=== PATIENT | male | born 1965 | race Caucasian/White ===

== ENCOUNTER 2019-09-09 16:14 | Inpatient (IN) | payer OTHER, SELFPAY ==
--- NOTE | ~2019-09-09 | US_ITS ---
EXAMINATION: US renal BI DATE: 09/10/2019 09:37 INDICATION: Hematuria. TECHNIQUE: Multiple ultrasound grayscale images of the kidneys were obtained. COMPARISON: CT abdomen and pelvis 07/23/2011 FINDINGS: The right kidney measures 12.6 x 7.0 x 5.9 cm. The left kidney measures 12.1 x 5.2 x 5.6 cm. The kidn eys demonstrate normal parenchymal echogenicity. There is a 3.4 cm cyst in right kidney. There is an 9 mm cyst in left kidney. There is mild bilateral hydronephrosis. The bladder is decompressed by a Fo sandra catheter. IMPRESSION: 1. Mild bilateral hydronephrosis. Reviewed, dictated and finalized at location A.
[2019-09-09 16:21] VITALS: BP 156/95; PULSE 64; RESP 20; TEMP 36.9; O2SAT 96
--- NOTE | 2019-09-09 17:05 | ED.GENADULT ---
HPI - General Adult General Chief complaint: Urogenital-Male Stated complaint: Unable to Urinate Time Seen by Provider: 09/09/19 16:18 History of Present Illness HPI narrative: Patient is a 54 y/o male complaining of difficulty with urination and bloody urine since yesterday. He states that he is passing clots sometimes. His last urination is approximately 10:00 AM. He has history prostate cancer. He attempted to strain, but still cannot urinate. Related Data Home Medications Medication Instructions Recorded Confirmed enzalutamide [Xtandi] 40 mg PO QID 09/09/19 09/09/19 Allergies Allergy/AdvReac Type Severity Reaction Status Date / Time No Known Allergies Allergy Verified 09/09/19 16:30 Review of Systems Constitutional: Constitutional: Denies chills, Denies fever(s), Denies headache(s) and Denies weakness Eyes: Eyes: Denies blurry vision ENT: Denies headache(s) and Denies neck pain Cardiovascular: Cardiovascular: Denies chest pain and Denies dyspnea Respiratory: Respiratory: Denies cough and Denies dyspnea Gastrointestinal: Gastrointestinal: Denies abdominal pain, Denies diarrhea, Denies nausea and Denies vomiting Genitourinary: Genitourinary: Reports hematuria, Reports oliguria, Reports dysuria and Reports urinary hesitancy Musculoskeletal: Musculoskeletal: Denies back pain and Denies neck pain Neurologic: Denies headache(s) and Denies weakness [facility] Past Medical History Medical History (Updated 09/09/19 @ 21:19 by Arielle Rodriguez MD) Prostate cancer Family History Family History Father Family history of cardiovascular disease Social History Social History Smoking status: Former smoker Smoking end date: 03/29/00 Alcohol intake: current Gender identity (if verbalized by the patient): Male Exam Const: General: no acute distress and well developed Orientation/consciousness: oriented to person, oriented to place, oriented to time and patient oriented x3 HENMT: Head: normocephalic Ears: external ears normal General nose exam: Normal external nose present Eyes: General: appearance normal, both eyes and all related structures Conjunctivae: conjunctivae normal Neck: Neck: normal visual inspection and full ROM Chest: Chest palpation & inspection: normal inspection of the chest and no tenderness Resp: Effort & Inspection: normal respiratory effort Auscultation: clear to auscultation bilaterally Cardio: Rate: regular rate Rhythm: regular rhythm GI: GI Palp: No abdominal tenderness and Yes Soft to palpation Skin: General skin exam: normal color and turgor normal Neuro: General: oriented to person, oriented to place, oriented to time and patient oriented x3 Cognition (Neuro): normal cognition Extrem: General: normal to inspection, full ROM and no pedal edema Psych: Appearance: grossly normal Mental Status: mental status grossly normal Affect: normal affect Course Consultations Consultation #1: Discussed with Dr. Deras (urology) at [place], who states that patient can be admitted at [facility] for CBI. He states that he can accept the patient for transfer if he requests. Date: 09/09/19 Time: 19:15 Consultation #2: Discussed with Dr. Weston (urology), who agrees to consult. He recommends admitting to hospitalist. Date: 09/09/19 Time: 20:52 Consultation #3: Discussed with Dr. Carpenter (hospitalist), who agrees to admit. Date: 09/09/19 Time: 21:16 Vital Signs Vital signs: Vital Signs Temperature 36.9 C 09/09/19 16:21 Pulse Rate 64 09/09/19 16:21 Respiratory Rate 20 09/09/19 16:21 Blood Pressure 156/95 H 09/09/19 16:21 Pulse Oximetry 96 09/09/19 16:21 Temperature 36.9 C 09/09/19 16:21 Pulse Rate 64 09/09/19 16:21 Respiratory Rate 20 09/09/19 16:21 Blood Pressure 156/95 H 09/09/19 16:21 Pulse Oximetry 96 09/09/19 16:21 Medical Decision Matteo
[2019-09-09 17:33] LABS: Basophils Absolute Auto 0.1 K/mm3 (0.0-0.1); Eosinophils Absolute Auto 0.2 K/mm3 (0-0.3); Eosinophils Percent Auto 2.5 % (0-4.4); Hematocrit 37.1 % (42.0-52.0); Hemoglobin 12.6 g/dL (14.0-18.0); Immature Granulocyte Absolute 0.03 K/mm3 (0.00-0.031); Immature Granulocyte Percent A 0.5 % (0-0.5); Lymphocytes Absolute Auto 0.72 K/mm3 (0.9-3.2); Lymphocytes Percent Auto 12.2 % (18.3-44.2); Mean Corpuscular Hemoglobin 31.5 pg (26-34); Mean Corpuscular Volume 92.8 fl (80-100); Monocytes Absolute Auto 0.6 K/mm3 (0.1-0.6); Neutrophils Absolute Auto 4.4 K/mm3 (1.3-6.7); Neutrophils Percent Auto 73.8 % (45.5-73.1); Platelet Count Result 167 k/mm3 (150-375); Red Cell Distribution Width 11.6 % (11.5-14.5); White Blood Count 5.9 K/mm3 (4.5-10.0)
[2019-09-09 17:53] LABS: Blood Urea Nitrogen 31 mg/dL (9-20); Calcium 9.3 mg/dL (8.4-10.2); Carbon Dioxide 22 mmol/L (22-30); Chloride 107 mmol/L (98-107); Estimated CRCL calculation 41 ml/min; Estimated Glomerular Filt Rate 33; Glucose 104 mg/dL (75-110); Potassium 4.2 mmol/L (3.4-5.0); Sodium 138 mmol/L (137-145)
[2019-09-09 18:53] LABS: Add Urine Microscopic? YES; Appearance Urine Cloudy (Clear); Bilirubin Urine Negative (Negative); Blood Urine 2+ (Negative); Color Urine Yellow (Yellow); Glucose Urine UA Negative (Negative); Ketones Urine Trace mg/dL (Negative); Leukocyte Esterase Ur Negative LEU/UL (Negative); Nitrate Urine Negative (Negative); Protein Urine 2+ mg/dL (Negative); RBC Urine >75 /hpf (0-2); Urobilinogen Urine Negative mg/dL (<2.0); WBC Urine >75 /hpf
--- NOTE | 2019-09-09 19:23 | PC.NURSE ---
CBI started at this time. Pt tolerating well.
[2019-09-09] MEDS: SODIUM CHLORIDE 0.9% IV 1,000 ML 999 ML IV CONT ×2 (19:46→21:29)
[2019-09-09 22:05] VITALS: BP 134/78; PULSE 60; RESP 14; O2SAT 96
[2019-09-09 22:11] VITALS: BP 134/64; PULSE 60; RESP 18; O2SAT 98
[2019-09-09] MEDS: SODIUM CHLORIDE 0.9% IV 1,000 ML 100 ML IV CONT (22:25)
[2019-09-09 22:26] LABS: Prostate Specific Antigen 8.8 ng/mL (< OR = 4.0)
--- NOTE | 2019-09-09 22:38 | ADMGEN ---
This patient, Alex Kraft, was admitted to 3 [facility] Surg Room 301-01. Patient/family oriented to hospital policies and general routines including ID bracelet, bed and alarms, visiting hours, pain management, procedures, bathroom and other care routines, personal items, smoking policy, room service/diet, and visiting hours. Valuables list has been completed. Information on how to activate the Rapid Response Team has been discussed. Patient/Family are encouraged to report perceived risks to care and to ask questions if they do not understand what they are told or what they should do.
--- NOTE | 2019-09-09 22:40 | PM.IMHP ---
H&P: HPI History of Present Illness Chief complaint: Hematuria, unable to urinate. Narrative: Alex Kraft is a 54-year-old male with prostate cancer presented to the emergency department earlier this evening with reports of hematuria and inability urinary. The patient was diagnosed with prostate cancer at age 44 and was initially treated with radiation and hormone therapy. He had a recurrence approximately 3 years ago and subsequently had a prostatectomy. Since that time, he has had several recurrences in and about the bladder which have been resected. More recently, his urologist had discussed radical cystectomy however the patient instead went to [place], [place] and saw specialist that has been participating in experimental therapy. The patient is not in that particular study, but he was started on Xtandi. Within the past 1 month or so, his creatinine has continued to increase from a baseline around 1.20 to 2.20 just last week. In any regard, on the patient began noticing blood in his urine and later that night he notes having to strain to urinate, passing large clots throughout the night. He continues to have painful urination, mainly gross hematuria and clots, and he has not been able to urinate at all since approximately 1100. He has since been started on CBI. He denies fever, chills, sweats, nausea, vomiting, and back pain. Review of Systems Review of Systems: Narrative: Twelve systems were reviewed with pertinent positives and negatives as per HPI. No fever, chills, or sweats. No recent cold or flu symptoms. He denies chest pain shortness of breath. No diarrhea. Except as documented, all other systems were reviewed and are negative. [facility] Past Medical History Medical History (Updated 09/09/19 @ 23:11 by Miriam Smith PA-C) Prostate cancer Diagnosed at the age of 44 initially treated with radiation and hormone therapy. He had a radical prostatectomy 3 years thereafter, and has had several recurrences in and about the bladder which have been resected. Currently on Xtandi. He is followed by a urologist affiliated with [facility] as well as a urologist in [place], [place]. Renal insufficiency Baseline creatinine around 1.20. Within the past 1 month, he reports his creatinine to be as high as 2.20. His urologist is believes this may be due to compression of ureters from his prostate cancer. Surgical History Surgical History (Updated 09/09/19 @ 23:06 by Miriam Smith PA-C) History of cystoscopy With resection of bladder tumor reported to be metastatic prostate cancer. History of prostatectomy Family History Family History Father Family history of cardiovascular disease Social History Social History (Updated 09/09/19 @ 23:07 by Miriam Smith PA-C) Social History: The patient is lives with his and their 19-year-old daughter in [place]. He is a former smoker and quit in 2000. No alcohol or illicit substance abuse. He designates his , Yolande, as his surrogate decision maker and he wishes to be a full code. Smoking packs per day: 0.5 Smoking cigarettes per day: 10.0 Years smoked: 15 Smoking pack-years: 7.50 Drinks per week: 1 Substance use: never Spiritual care concerns: No Meds Home Medications and Allergies Home Medications Medication Instructions Recorded Confirmed Type Lactobacillus acidophilus 100 mg PO DAILY 09/09/19 09/09/19 History [Acidophilus] cholecalciferol (vitamin D3) 50 mcg PO DAILY 09/09/19 09/09/19 History [Vitamin D3] enzalutamide [Xtandi] 40 mg PO QID 09/09/19 09/09/19 History multivitamin [Daily Multi-Vitamin] 1 tablet PO DAILY 09/09/19 09/09/19 History niacin 100 mg PO DAILY 09/09/19 09/09/19 History zinc 50 mg PO DAILY 09/09/19 09/09/19 History Allergies Allergy/AdvReac Type Severity Reaction Status Date / Time No Known Allergies Allergy Verifi
[2019-09-09 23:35] VITALS: BP 141/83; PULSE 52; RESP 16; TEMP 36.6; O2SAT 98; BMI 30.9
[2019-09-10 02:00] VITALS: BP 142/76; PULSE 55; RESP 18; TEMP 36.4; O2SAT 98
[2019-09-10 02:44] LABS: Blood Urea Nitrogen 26 mg/dL (9-20); Calcium 8.2 mg/dL (8.4-10.2); Carbon Dioxide 23 mmol/L (22-30); Chloride 111 mmol/L (98-107); Estimated CRCL calculation 51 ml/min; Estimated Glomerular Filt Rate 37; Glucose 111 mg/dL (75-110); Potassium 3.7 mmol/L (3.4-5.0); Sodium 138 mmol/L (137-145)
[2019-09-10 03:05] LABS: Hematocrit 36.1 % (42.0-52.0); Hemoglobin 12.2 g/dL (14.0-18.0)
[2019-09-10] MEDS: SODIUM CHLORIDE 0.9% IV 1,000 ML 100 ML IV CONT ×2 (05:44→15:27)
[2019-09-10 06:00] VITALS: BP 162/83; PULSE 56; RESP 16; TEMP 36.7; O2SAT 99
[2019-09-10] MEDS: ACETAMINOPHEN 325 MG TABLET 650 MG PO ×2 (08:23→18:49)
[2019-09-10] MEDS: ZINC SULFATE 220 MG CAPSULE PO (08:24)
[2019-09-10] MEDS: NIACIN 100 MG TABLET PO (08:24)
[2019-09-10] MEDS: CHOLECALCIFEROL 1,000 UNIT TABLET 2000 UNITS PO (08:24)
[2019-09-10] MEDS: MULTIVITAMINS THERAPEUTIC TAB (*BKC) 1 TABLET PO (08:24)
[2019-09-10] MEDS: ACIDOPHILUS/BULGARICUS CHEWABLE TABLET 1 TABLET PO (08:25)
[2019-09-10 10:00] VITALS: BP 136/83; PULSE 60; RESP 14; TEMP 36.7; O2SAT 98
--- NOTE | 2019-09-10 10:23 | WPDURCON ---
Assessment and Plan Assessment and plan (1) Prostate cancer: Code(s): C61 - Malignant neoplasm of prostate Status: Acute Assessment and Plan: Advanced cancer and MRI in July worrisome for local 6cm recurrence and bilateral hydro and nodes pos Completed homonal ablation planned and I agree his best option is cystectomy and diversion. Cysto and stents planned this week and if not able with need percs. Hormone injection planned. This is very complex and advance cancer---rec he continue his care with current tear at [facility]---future admissions should be considered at [place]. (2) Renal insufficiency: Code(s): N28.9 - Disorder of kidney and ureter, unspecified Status: Acute (3) Gross hematuria: Code(s): R31.0 - Gross hematuria Status: Acute Assessment and Plan: Keep moctezuma Wean CBI US pending Home with moctezuma likey tomorrow (4) Urinary retention: Code(s): R33.9 - Retention of urine, unspecified Status: Acute (5) Hydronephrosis due to obstruction of bladder: Code(s): N13.30 - Unspecified hydronephrosis; N32.0 - Bladder-neck obstruction Status: Acute Assessment and Plan: attempted stents for Wednesday--july need percs Urology Consult Note HPI Date Seen: 09/10/19 Requesting Physician: Sugar Ruiz PA-C Primary Care Provider: Abdoulaye Landis DO Consult Narrative Narrative: Alex Kraft is a 54 year old male with advancing prostate cancer. MRI last at [facility] with bilateral hydro and 5.8cm mass progressing in bladder. He had radiation treatment and salvage prostatectomy with Dr. Marr. Now eval with Dr. Caleb Dumas and offered cystectomy and diversion--he is considering and went to [facility] for additional eval---started Xtandi. He states he has not had hormonal ablation recently and with normal testosterone---injection planned next week. Has cysto and stents planned this wednesday at [place]. PSA reported last as 8 and Cr 1.9 today with KEVIN pending. On CBI as worked out and played tennis and bleeding since. ER contacted [facility] team and they thought local admission here would be reasonable. [facility] Past Medical History Medical History (Updated 09/10/19 @ 10:32 by Vinay Weston MD) Prostate cancer Diagnosed at the age of 44 initially treated with radiation and hormone therapy. He had a radical prostatectomy 3 years thereafter, and has had several recurrences in and about the bladder which have been resected. Currently on Xtandi. He is followed by a urologist affiliated with [facility], Dr. Dumas Renal insufficiency Baseline creatinine around 1.20. Within the past 1 month, he reports his creatinine to be as high as 2.20. His urologist is believes this may be due to compression of ureters from his prostate cancer. Surgical History Surgical History (Updated 09/09/19 @ 23:06 by Miriam Smith PA-C) History of cystoscopy With resection of bladder tumor reported to be metastatic prostate cancer. History of prostatectomy Family History Family History Father Family history of cardiovascular disease Social History Social History (Updated 09/09/19 @ 23:07 by Miriam Smith PA-C) Social History: The patient is lives with his and their 19-year-old daughter in [place]. He is a former smoker and quit in 2000. No alcohol or illicit substance abuse. He designates his , Yolande, as his surrogate decision maker and he wishes to be a full code. Smoking packs per day: 0.5 Smoking cigarettes per day: 10.0 Years smoked: 15 Smoking pack-years: 7.50 Drinks per week: 1 Substance use: never Spiritual care concerns: No Meds Home Medications and Allergies Home Medications Medication Instructions Recorded Confirmed Type Lactobacillus acidophilus 100 mg PO DAILY 09/09/19 09/09/19 History [Acidophilus] cho
[2019-09-10 12:47] LABS: Basophils Absolute Auto 0.1 K/mm3 (0.0-0.1); Basophils Percent Auto 0.9 % (0.2-1.2); Eosinophils Absolute Auto 0.3 K/mm3 (0-0.3); Eosinophils Percent Auto 3.8 % (0-4.4); Hematocrit 37.9 % (42.0-52.0); Hemoglobin 13.1 g/dL (14.0-18.0); Immature Granulocyte Absolute 0.02 K/mm3 (0.00-0.031); Immature Granulocyte Percent A 0.3 % (0-0.5); Lymphocytes Absolute Auto 0.84 K/mm3 (0.9-3.2); Lymphocytes Percent Auto 12.8 % (18.3-44.2); Mean Corpuscular HGB Conc 34.6 g/dl (32-36); Mean Corpuscular Hemoglobin 31.8 pg (26-34); Monocytes Absolute Auto 0.7 K/mm3 (0.1-0.6); Monocytes Percent Auto 11.1 % (2.6-8.5); Neutrophils Absolute Auto 4.7 K/mm3 (1.3-6.7); Neutrophils Percent Auto 71.1 % (45.5-73.1); Platelet Count Result 166 k/mm3 (150-375); Red Blood Count 4.12 M/mm3 (4.6-6.20); Red Cell Distribution Width 11.8 % (11.5-14.5); White Blood Count 6.6 K/mm3 (4.5-10.0)
[2019-09-10 13:01] LABS: Blood Urea Nitrogen 22 mg/dL (9-20); Calcium 8.8 mg/dL (8.4-10.2); Carbon Dioxide 23 mmol/L (22-30); Chloride 107 mmol/L (98-107); Estimated CRCL calculation 57 ml/min; Estimated Glomerular Filt Rate 42; Glucose 101 mg/dL (75-110); Potassium 4.4 mmol/L (3.4-5.0); Sodium 135 mmol/L (137-145)
[2019-09-10 14:00] VITALS: BP 130/84; PULSE 55; RESP 14; TEMP 37; O2SAT 97
--- NOTE | 2019-09-10 14:27 | PM.IMPN ---
Progress Note: A&P Assessment and Plan (1) Gross hematuria: Code(s): R31.0 - Gross hematuria Status: Acute Assessment and Plan: Uncertain if bleeding is due to recurrent bladder tumor verses cystitis. CBI still running wide open and Bosch catheter bag is still showing fruit punch colored urine, no clots. Empiric ceftriaxone started due to abnormal urinalysis, pending urine culture. Urology consulted and recommend continuing to wean CBI, and potentially discharge the patient home in the next few days with the Bosch catheter in place and to follow-up with his specialist for his outpatient urethral stent procedure which is post be later this week. Continue monitoring patient's symptoms. (2) Normocytic anemia: Code(s): D64.9 - Anemia, unspecified Status: Acute Assessment and Plan: Perhaps underlying chronic anemia versus acute blood loss anemia. H&H has been stable. Trend hemoglobin hematocrit given gross hematuria. (3) Renal insufficiency: Code(s): N28.9 - Disorder of kidney and ureter, unspecified Status: Acute Assessment and Plan: Patient reports increasing creatinine over the past 1 month, last known creatinine was 2.20. Patient was told that he may have renal insufficiency stemming from compression of the ureters from the bladder tumor. Creatinine on arrival was 2.10, and currently is 1.7. Continue with Bosch catheter, IV fluid hydration and CBI. (4) Urinary retention: Code(s): R33.9 - Retention of urine, unspecified Status: Acute Assessment and Plan: Secondary to gross hematuria and clots. Continue Bosch catheter and CBI as above. (5) Prostate cancer: Code(s): C61 - Malignant neoplasm of prostate Status: Acute Assessment and Plan: Continue Xtandi. He will need to follow-up with his specialists as an outpatient next week for further evaluation Time Spent With Patient Time with patient: 25 - 35 minutes Subjective Date/time seen: 09/10/19 14:27 Interval history: Date of service 09/10/2019: The patient reports his hematuria seems to be clearing up some in the Bosch bag. He denies any pain, discomfort or spasming to his bladder with the CBI running. He states whenever he works out to hard he notices more bleeding and clots in his urine but this is the 1st time he has ever need to be hospitalized or had a Bosch catheter and CBI. He denies any fevers, chills, nausea, vomiting, abdominal pain, chest pain, shortness of breath, leg swelling calf pain, or any other symptoms at this time. Review of Systems Review of Systems: All systems reviewed & are unremarkable except as noted in HPI and below Exam Narrative: Exam Narrative: General: 54-year-old man sitting up in the chair on his phone. Appears comfortable. In no acute distress. Skin: No jaundice or cyanosis. Good skin turgor. Neck: Full range of motion. Supple. Respiratory: Lungs are clear to auscultation bilaterally. No bony chest wall tenderness. Cardiovascular: The heart has a regular rate and rhythm without murmur. : Bosch bag with fruit punch colored urine. No clots noted in the bag. Lower extremities: No lower extremity edema. Distal pulses are easily palpated. No calf tenderness to palpation. Gastrointestinal: The abdomen is soft, nontender and nondistended with active bowel sounds. Psychiatric: Lucid and oriented. Memory intact. Neurologic: No focal deficits. Speech is clear. No facial drooping. Objective Data Vital Signs Vital Signs: Vital Signs - 24 hr 09/09/19 16:21 09/09/19 22:05 09/09/19 22:11 Temperature 98.4 F Pulse Rate 64 60 60 Respiratory Rate 20 14 18 Blood Pressure 156
--- NOTE | 2019-09-10 16:49 | PHAR ---
The patient's home med of Enzalutamide (XTANDI) 40MG capsule has been verified.
[2019-09-10 18:00] VITALS: BP 145/93; PULSE 52; RESP 14; TEMP 36.7; O2SAT 98
[2019-09-10 21:51] VITALS: BP 160/94; PULSE 54; RESP 16; TEMP 36.5; O2SAT 97
[2019-09-11 02:00] VITALS: BP 132/87; PULSE 52; RESP 18; TEMP 36.3; O2SAT 99
[2019-09-11 06:00] VITALS: BP 155/91; PULSE 53; RESP 16; TEMP 36.3; O2SAT 100
[2019-09-11 06:40] LABS: Hematocrit 36.3 % (42.0-52.0); Hemoglobin 12.2 g/dL (14.0-18.0); Mean Corpuscular HGB Conc 33.6 g/dl (32-36); Mean Corpuscular Hemoglobin 31.8 pg (26-34); Mean Corpuscular Volume 94.5 fl (80-100); Mean Platelet Volume 10.2 fl (7.4-10.4); Platelet Count Result 159 k/mm3 (150-375); Red Blood Count 3.84 M/mm3 (4.6-6.20); Red Cell Distribution Width 11.9 % (11.5-14.5); White Blood Count 4.4 K/mm3 (4.5-10.0)
[2019-09-11 07:05] LABS: Blood Urea Nitrogen 18 mg/dL (9-20); Calcium 8.6 mg/dL (8.4-10.2); Carbon Dioxide 26 mmol/L (22-30); Chloride 107 mmol/L (98-107); Estimated CRCL calculation 51 ml/min; Estimated Glomerular Filt Rate 37; Glucose 106 mg/dL (75-110); Potassium 4.3 mmol/L (3.4-5.0); Sodium 138 mmol/L (137-145)
[2019-09-11] MEDS: ACIDOPHILUS/BULGARICUS CHEWABLE TABLET 1 TABLET PO (08:41)
[2019-09-11] MEDS: MULTIVITAMINS THERAPEUTIC TAB (*BKC) 1 TABLET PO (08:42)
[2019-09-11] MEDS: CHOLECALCIFEROL 1,000 UNIT TABLET 2000 UNITS PO (08:42)
[2019-09-11] MEDS: ZINC SULFATE 220 MG CAPSULE PO (08:42)
[2019-09-11] MEDS: NIACIN 100 MG TABLET PO (08:42)
--- NOTE | 2019-09-11 08:49 | WPDUROPN2 ---
Progress Note: A&P Assessment and Plan (1) Hydronephrosis due to obstruction of bladder: Code(s): N13.30 - Unspecified hydronephrosis; N32.0 - Bladder-neck obstruction Status: Acute Assessment and Plan: is schedule for cysto/stents with Dr Kali Dumas at [place] Wednesday (2) Renal insufficiency: Code(s): N28.9 - Disorder of kidney and ureter, unspecified Status: Acute Assessment and Plan: stable (3) Gross hematuria: Code(s): R31.0 - Gross hematuria Status: Acute Assessment and Plan: continues to need CBI. i have a call out to Dr Dumas about a possible transfer to his regular urologist Dr Kali Dumas at [place] for furhter management (4) Prostate cancer: Code(s): C61 - Malignant neoplasm of prostate Status: Acute Subjective Subjective Date/Time Seen: 09/11/19 08:49 CBI ran out last night and catheter blocked off. Still requiring CBI. Patient and multiple questions that I can not answer about his cancer care. Exam Const: General: no acute distress Resp: Effort & Inspection: normal respiratory effort Urinary Catheter: Urinary Catheter: urine pink (on CBI) Skin: General skin exam: normal color Extrem: General: normal to inspection Objective Data Vital Signs Vital Signs: Vital Signs - 24 hr 09/10/19 10:00 09/10/19 14:00 09/10/19 18:00 Temperature 98.0 F 98.6 F 98.0 F Pulse Rate 60 55 L 52 L Respiratory Rate 14 14 14 Blood Pressure 136/83 130/84 145/93 H Pulse Oximetry 98 97 98 09/10/19 21:51 09/11/19 02:00 09/11/19 06:00 Temperature 97.7 F 97.4 F L 97.3 F L Pulse Rate 54 L 52 L 53 L Respiratory Rate 16 18 16 Blood Pressure 160/94 H 132/87 155/91 H Pulse Oximetry 97 99 100 Intake/Output Intake/Output: Intake & Output 09/08/19 09/09/19 09/10/19 09/11/19 23:59 23:59 23:59 23:59 Intake Total 1050 4860 1280 Output Total 92503 0512 4160 Balance -15013 4664 -630 Meds/Results Medications: Active Medications Generic Name Dose Route Start Last Admin Trade Name Freq PRN Reason Stop Dose Admin Acetaminophen 650 mg 09/10/19 08:04 09/10/19 18:49 Tylenol Tablet PO 650 mg Q6H PRN Administration Mild Pain (1-3) or Fever Lactobacillus Acidophilus 1 tablet 09/10/19 09:00 09/11/19 08:41 Lactinex Chewable Tablet PO 1 tablet DAILY CECILIA Administration Multivitamins Therapeutic 1 tablet 09/10/19 09:00 09/11/19 08:42 Multivitamins Therapeutic(*Bkc PO 1 tablet DAILY CECILIA Administration Niacin 100 mg 09/10/19 09:00 09/11/19 08:42 Niacin PO 100 mg DAILY CECILIA Administration Vitamin D 2,000 unit 09/10/19 09:00 09/11/19 08:42 Vitamin D PO 2,000 unit DAILY CECILIA Administration Zinc Sulfate 220 mg 09/10/19 09:00 09/11/19 08:42 Zinc Sulfate PO 220 mg DAILY CECILIA Administration Radiology Results: ITS Impressions Renal Ultrasound 09/10/19 14:53 IMPRESSION: 1. Mild bilateral hydronephrosis. Labs Labs: Laboratory Results - last 24 hr 09/10/19 09/10/19 09/11/19 11:59 11:59 05:41 WBC 6.6 4.4 L RBC 4.12 L 3.84 L Hgb 13.1 L 12.2 L Hct 37.9 L 36.3 L MCV 92.0 94.5 MCH 31.8 31.8 MCHC 34.6 33.6 RDW 11.8 11.9 Plt Count 166 159 MPV 10.0 10.2 Immature Gran % (Auto) 0.3 Neut % (Auto) 71.1 Lymph % (Auto) 12.8 L [place] % (Auto) 11.1 H Eos % (Auto) 3.8 Baso % (Auto) 0.9 Lymph # (Auto) 0.84 L [place] # (Auto) 0.7 H Eos # (Auto) 0.3 Baso # (Auto) 0.1 Abs Immat Gran (auto) 0.02 Absolute Neuts (auto) 4.7 Absolute Nucleated RBC 0.0 Nucleated RBC % 0.0 Sodium 135 L Potassium 4.4 Chloride 107 Carbon Dioxide 23 BUN 22 H Creatinine 1.70 H Estim Creat Clear Calc 57 Estimated GFR 42 L Glucose 101 Calcium 8.8 Magnesium 2.0 06/15/20 05:41 WBC RBC Hgb Hct MCV MCH MCHC RDW Plt Count MPV Immature Gran % (Auto) Neut % (Auto) Lymph % (Au
[2019-09-11 10:00] VITALS: BP 153/91; PULSE 64; RESP 14; TEMP 36.7; O2SAT 99
--- NOTE | 2019-09-11 12:43 | PM.TDS ---
Transfer Discharge Sum: Prov Provider Date of admission: 09/10/19 09:39 Primary care physician: Abdoulaye Landis DO Admitting clinician: Sandra Carpenter DO Consults: 09/09/19 21:21 Consult to Physician Routine Comment: Consulting Provider: Vinay Weston Reason for consultation: urology Has provider been notified: Yes DS: Admitting Diagnosis Admitting Diagnosis Admitting Diagnosis: Gross hematuria DS: Discharge Diagnosis Discharge Diagnosis (1) Gross hematuria: Code(s): R31.0 - Gross hematuria Status: Acute Assessment and Plan: Uncertain if bleeding is due to recurrent bladder tumor verses cystitis. Patient CBI had been turned down last night and he developed clots. Clots were flushed out and CBI is still running wide open and urine is still bright red. Urine culture was negative for any growth. Urology Dr. Geiger evaluated the patient today and since there has not been any improvement in his hematuria. Since he sees a specialist at [place] and is going to have a procedure next week, Dr. Geiger called his urologist who accepted the transfer to [place] for further evaluation and treatment. (2) Normocytic anemia: Code(s): D64.9 - Anemia, unspecified Status: Acute Assessment and Plan: Perhaps underlying chronic anemia versus acute blood loss anemia. H&H has been stable. (3) Renal insufficiency: Code(s): N28.9 - Disorder of kidney and ureter, unspecified Status: Acute Assessment and Plan: Patient reports increasing creatinine over the past 1 month, last known creatinine was 2.20. Patient was told that he may have renal insufficiency stemming from compression of the ureters from the bladder tumor. Creatinine on arrival was 2.10, and currently is 1.9. Stable. Will continue light IV fluid hydration. (4) Urinary retention: Code(s): R33.9 - Retention of urine, unspecified Status: Acute Assessment and Plan: Secondary to gross hematuria and clots. Continue Bosch catheter and CBI as above. (5) Prostate cancer: Code(s): C61 - Malignant neoplasm of prostate Status: Acute Assessment and Plan: Continue Xtandi. Transfer Discharge Sum: Med Medications Active and Home Medications: Home Medications Lactobacillus acidophilus [Acidophilus] 100 mg PO DAILY 09/09/19 [History Confirmed 09/09/19] cholecalciferol (vitamin D3) [Vitamin D3] 50 mcg PO DAILY 09/09/19 [History Confirmed 09/09/19] enzalutamide [Xtandi] 40 mg PO QID 09/09/19 [History Confirmed 09/09/19] multivitamin [Daily Multi-Vitamin] 1 tablet PO DAILY 09/09/19 [History Confirmed 09/09/19] niacin 100 mg PO DAILY 09/09/19 [History Confirmed 09/09/19] zinc 50 mg PO DAILY 09/09/19 [History Confirmed 09/09/19] Active Medications Acetaminophen (Tylenol Tablet) 650 mg PO Q6H PRN PRN Reason: Mild Pain (1-3) or Fever Last Admin: 09/10/19 18:49 Dose: 650 mg Documented by: Lactobacillus Acidophilus (Lactinex Chewable Tablet) 1 tablet PO DAILY [facility] Last Admin: 09/11/19 08:41 Dose: 1 tablet Documented by: Multivitamins Therapeutic (Multivitamins Therapeutic(*Bkc) 1 tablet PO DAILY [facility] Last Admin: 09/11/19 08:42 Dose: 1 tablet Documented by: Niacin (Niacin) 100 mg PO DAILY [facility] Last Admin: 09/11/19 08:42 Dose: 100 mg Documented by: Vitamin D (Vitamin D) 2,000 unit PO DAILY [facility] Last Admin: 09/11/19 08:42 Dose: 2,000 unit Documented by: Zinc Sulfate (Zinc Sulfate) 220 mg PO DAILY [facility] Last Admin: 09/11/19 08:42 Dose: 220 mg Documented by: Transfer Discharge Sum: Hosp Hospital Course Hospital course: Alex Rogelio Kraft is a 54 year old male with history of prostate cance
[2019-09-11 14:00] VITALS: BP 148/90; PULSE 62; RESP 16; TEMP 36.7; O2SAT 99
== END 2019-09-11 19:00 | disposition short-term general hospital (02) | DRG 687 ==
LOC: ANHED 21:19 → ANH3MEDSUR 22:00
PROVIDERS: Physician Assistant; Admitting Provider Internal Medicine; Emergency Provider Emergency Medicine; PCP Internal Medicine; Visit Provider Family Medicine
DX: C79.11 Secondary malignant neoplasm of bladder (principal); N13.39 Other hydronephrosis; C61 Malignant neoplasm of prostate; D63.0 Anemia in neoplastic disease; R31.0 Gross hematuria; N32.0 Bladder-neck obstruction; R33.8 Other retention of urine; N28.9 Disorder of kidney and ureter, unspecified; Z79.890 Hormone replacement therapy; Z79.899 Other long term (current) drug therapy; Z87.891 Personal history of nicotine dependence; Z90.79 Acquired absence of other genital organ(s); Z92.3 Personal history of irradiation
CPT/HCPCS: 36415; 76775; 80048; 81001; 83735; 84153; 85014; 85018; 85025; 85027; 87086; 96361; 96374; 99285; A9270; G0378; J0696; J7030

== ENCOUNTER 2019-10-10 19:29 | Emergency (ER) | payer OTHER, SELFPAY ==
[2019-10-10 19:38] VITALS: BP 139/83; PULSE 84; RESP 16; TEMP 38.2; O2SAT 99
--- NOTE | 2019-10-10 19:47 | PC.NURSE ---
Patient triaged and then decided to leave express care. See note from [facility] RESERVATIONIST.
--- NOTE | 2019-10-10 19:48 | ED.MALEGU ---
HPI - Male Genitourinary General Chief complaint: Urogenital-Male Stated complaint: Back and abd pain History of Present Illness HPI Narrative: I did not fully evaluate this patient. I did not examine this patient. During a brief discussion with patient after he was triaged by RN I told him that given his current metastatic bladder cancer, recent hospitalization and TURP and current symptoms/vital signs,that we would be happy to see him at urgent care, but would transfer him to an ER for further evaluation regarding concerns for pyelonephritis and sepsis as we do not have capabilities for testing that I believe he requires. Patient has made the decision to leave after triage and will call him urology exchange for further instructions, instead of staying for further evaluation with subsequent transfer. Related Data Home Medications Medication Instructions Recorded Confirmed Lactobacillus acidophilus 100 mg PO DAILY 09/09/19 09/09/19 [Acidophilus] cholecalciferol (vitamin D3) 50 mcg PO DAILY 09/09/19 09/09/19 [Vitamin D3] enzalutamide [Xtandi] 40 mg PO QID 09/09/19 09/09/19 multivitamin [Daily Multi-Vitamin] 1 tablet PO DAILY 09/09/19 09/09/19 niacin 100 mg PO DAILY 09/09/19 09/09/19 zinc 50 mg PO DAILY 09/09/19 09/09/19 Allergies Allergy/AdvReac Type Severity Reaction Status Date / Time No Known Allergies Allergy Verified 09/09/19 16:30 [facility] Past Medical History Medical History (Updated 09/10/19 @ 10:32 by Vinay Weston MD) Prostate cancer Diagnosed at the age of 44 initially treated with radiation and hormone therapy. He had a radical prostatectomy 3 years thereafter, and has had several recurrences in and about the bladder which have been resected. Currently on Xtandi. He is followed by a urologist affiliated with [facility], Dr. Dumas Renal insufficiency Baseline creatinine around 1.20. Within the past 1 month, he reports his creatinine to be as high as 2.20. His urologist is believes this may be due to compression of ureters from his prostate cancer. Surgical History Surgical History (Updated 09/09/19 @ 23:06 by Miriam Smith PA-C) History of cystoscopy With resection of bladder tumor reported to be metastatic prostate cancer. History of prostatectomy Social History Social History (Updated 09/09/19 @ 23:07 by Miriam Smith PA-C) Social History: The patient is lives with his and their 19-year-old daughter in [place]. He is a former smoker and quit in 2000. No alcohol or illicit substance abuse. He designates his , Yolande, as his surrogate decision maker and he wishes to be a full code. Smoking packs per day: 0.5 Smoking cigarettes per day: 10.0 Years smoked: 15 Smoking pack-years: 7.50 Drinks per week: 1 Substance use: never Spiritual care concerns: No Course Vital Signs Vital signs: Vital Signs Temperature 100.7 F H 10/10/19 19:38 Pulse Rate 84 10/10/19 19:38 Respiratory Rate 16 10/10/19 19:38 Blood Pressure 139/83 10/10/19 19:38 Pulse Oximetry 99 10/10/19 19:38 Temperature 100.7 F H 10/10/19 19:38 Pulse Rate 84 10/10/19 19:38 Respiratory Rate 16 10/10/19 19:38 Blood Pressure 139/83 10/10/19 19:38 Pulse Oximetry 99 10/10/19 19:38 Discharge Plan Discharge Patient Disposition: Left Without Being Sn Triaged Prescriptions: No Action Xtandi 40 mg Capsule 40 mg PO QID RF: 0 multivitamin [Daily Multi-Vitamin] Tablet 1 tablet PO DAILY RF: 0 niacin 100 mg Tablet 100 mg PO DAILY RF: 0 zinc 50 mg Tablet 50 mg PO DAILY RF: 0 Lactobacillus acidophilus [Acidophilus] Capsule 100 mg PO DAILY RF: 0 cholecalciferol (vitamin D3) [Vitamin D3] 50 mcg (2,000 unit) Capsule 50 mcg PO DAILY RF: 0 Follow-up/Referrals: Abdoulaye Landis DO [Primary Care Provider] - Discharge Date/Time: 10/10/19 19:49
== END 2019-10-10 19:49 | disposition left against medical advice (07) ==
LOC: EXPCOLL 19:32
PROVIDERS: Emergency Provider Nurse Practitioner; PCP Internal Medicine
DX: Z53.21 Procedure and treatment not carried out due to patient leaving prior to being seen by health care provider (principal)
CPT/HCPCS: 99199

== ENCOUNTER 2020-02-03 06:44 | Outpatient (NON) | payer OTHER, SELFPAY ==
[2020-02-05 00:53] LABS: SARS-CoV-2 RNA PCR Negative
== END 2020-02-03 06:45 ==
LOC: ANHCOVIDDT 06:56
PROVIDERS: PCP Internal Medicine; Visit Provider Nurse Practitioner
DX: R19.7 Diarrhea, unspecified (principal); Z20.828 Contact with and (suspected) exposure to other viral communicable diseases
CPT/HCPCS: 87635; C9803; U0003

== ENCOUNTER 2021-03-29 11:00 | Emergency (ER) | payer OTHER, SELFPAY ==
[2021-03-29 13:01] VITALS: BP 141/96; PULSE 71; RESP 16; TEMP 35.9; O2SAT 99
--- NOTE | 2021-03-29 13:33 | ED.GENADULT ---
HPI - General Adult General Chief complaint: Upper Respiratory Infection Stated complaint: nasal congestion Source: patient Mode of arrival: ambulatory Limitations: no limitations History of Present Illness HPI narrative: Patient presents for evaluation of sinus congestion for last 2 weeks. He initially had some drainage but states that that has stopped. No fever, chills, loss of taste or smell, nausea, vomiting, diarrhea, chest pain, shortness of breath, cough, sore throat or otalgia. No recent sick contacts to his knowledge. No history of Covid. He has received both Covid vaccinations and his booster. He has tried Flonase, Zyrtec with minimal improvement in symptoms or after. He has taken two COVID tests, both of which were negative. No additional complaints or concerns. Related Data Home Medications Medication Instructions Recorded Confirmed enzalutamide [Xtandi] 40 mg PO QID 03/29/21 03/29/21 leuprolide [Lupron] 1 mg SUBCUT [id number] 03/29/21 03/29/21 oxybutynin chloride 5 mg PO DAILY 03/29/21 03/29/21 tamsulosin 0.4 mg PO DAILY 03/29/21 03/29/21 Allergies Allergy/AdvReac Type Severity Reaction Status Date / Time No Known Allergies Allergy Verified 03/29/21 13:33 Review of Systems Review of Systems: CONSTITUTIONAL: Denies fever, chills, or sweats. EYES: Denies visual changes, redness, or discharge. ENT: Reports sinus congestion. Denies rhinorrhea, sore throat, or otalgia. CARDIOVASCULAR: Denies chest pain, palpitations, or edema. RESPIRATORY: Denies cough or dyspnea. GASTROINTESTINAL: Denies abdominal pain, nausea, vomiting, or diarrhea. GENITOURINARY: Denies dysuria or hematuria. SKIN: Denies rash or itching. MUSCULOSKELETAL: Denies back pain, joint pain, or myalgia. NEUROLOGIC: Denies headache, numbness, dizziness, or weakness. PSYCHIATRIC: Denies anxiety or depression. [facility] Past Medical History Medical History Prostate cancer Diagnosed at the age of 44 initially treated with radiation and hormone therapy. He had a radical prostatectomy 3 years thereafter, and has had several recurrences in and about the bladder which have been resected. Currently on Xtandi. He is followed by a urologist affiliated with [facility], Dr. Dumas Renal insufficiency Baseline creatinine around 1.20. Within the past 1 month, he reports his creatinine to be as high as 2.20. His urologist is believes this may be due to compression of ureters from his prostate cancer. Surgical History Surgical History History of cystoscopy With resection of bladder tumor reported to be metastatic prostate cancer. History of prostatectomy Family History Family History Father Family history of cardiovascular disease Social History Social History Social History: The patient is lives with his and their 19-year-old daughter in [place]. He is a former smoker and quit in 2000. No alcohol or illicit substance abuse. He designates his , Yolande, as his surrogate decision maker and he wishes to be a full code. Smoking packs per day: 0.5 Smoking cigarettes per day: 10.0 Years smoked: 15 Smoking pack-years: 7.50 Smoking status: Never smoker Drinks per week: 1 Substance use: never Spiritual care concerns: No Exam Narrative: GENERAL: Well-appearing, well-nourished, and in no acute distress. HEAD: Normocephalic, atraumatic. EYES: PERRLA and EOMI. ENT: Nares clear, no rhinorrhea or epistaxis. Mucous membranes moist. Oropharynx without tonsillar hypertrophy exudate or other lesions. Bilateral TMs pearly bailey nonbulging NECK: Supple. No adenopathy or masses. No carotid bruits or JVD CHEST: Clear to auscultation. No respiratory distress. No wheezes rales or rhonchi
== END 2021-03-29 14:05 | disposition home or self-care (01) ==
PROVIDERS: Emergency Provider Nurse Practitioner; PCP Internal Medicine
DX: J01.00 Acute maxillary sinusitis, unspecified (principal); Z20.822 Contact with and (suspected) exposure to COVID-19; Z87.891 Personal history of nicotine dependence
CPT/HCPCS: 87426; 99213; C9803; G0463

== ENCOUNTER 2024-09-13 18:54 | Observation (INO) | payer OTHER, SELFPAY ==
--- NOTE | ~2024-09-13 | CT_ITS ---
CLINICAL INDICATION: Urinary retention with hematuria. Personal history of prostate cancer COMPARISON: None. Reference is made to a ultrasound examination of the bilateral kidneys dated 020 TECHNIQUE: Multiple contiguous axial images of the abdomen and pelvis were performed without the admi nistration of intravenous contrast The dose-length product (DLP) was 1043.94 mGy-cm. Automated exposure control and iterative reconstruction technique were employed. FINDINGS/OBSERVATIONS: Visualized lower thorax: The bilateral lung bases are clear. The heart is of normal size, without pericardial effusion. Liver: The liver demonstrates homogeneous attenuation and is enlarged measuring 20 cm in longitudinal dimens ion. Gallbladder and biliary system: The gallbladder is only minimally distended, and contains multiple calcified stones. No surrounding inflammatory change is absent. No pericholecystic fluid or gallbladder wall thickening is noted. Pancreas: Limited evaluation of the pancreas secondary to the lack of intravenous contrast. Spleen: The spleen demonstrates homogeneous attenuation and is not enlarged. Kidneys: Significant bilateral hydroureteronephrosis. A rounded focus of fluid attenuation is identified within the upper pole of the right kidney measurin g 4.1 x 3.5 x 3.9 cm, representing a cyst for which no further follow-up is needed. Adrenal glands: Unremarkable. Gastrointestinal tract: Fecal stasis within the colon. Appendix: The air-filled appendix is of normal caliber (axial series, images 136 through 146) Vasculature: Trace calcified atherosclerotic disease, without aneurysmal dilatation. Lymph nodes: Limited evaluation without intravenous contrast. Pelvic structures: The bladder is minimally distended, with an air-fluid level and hyper attenuating fluid along its bas e, likely blood products/clot. The balloon for the Bosch catheter is identified within the bulbous urethra, just shy of the membrano us urethra with the central most portion of the Bosch catheter extending just beyond the internal sph incter of the bladder neck and just entering the caudal-most portion of the bladder. The prostate gland is not visualized, presumably surgically absent. Body wall and musculoskeletal: Small fat-containing umbilical hernia. Age-appropriate degenerative disease within the lower lumbar spine. IMPRESSION: Significant bilateral hydroureteronephrosis extending to the bladder which contains rounded hyper att enuating foci along its base, likely blood products/clot. The balloon for the Bosch catheter is distended within the bulbous urethra. The tip of the Bosch catheter extends just into the base of the bladder into the area of blood produc ts/clot . Reviewed, dictated and finalized at location A. IMPRESSION: Significant bilateral hydroureteronephrosis extending to the bladder which cont ains rounded hyper attenuating foci along its base, likely blood products/clot. The balloon for the Bosch catheter is distended within the bulbous urethra. The tip of the Bosch catheter extends just into the base of the bladder into th e area of blood products/clot .
--- OUTSIDE RECORDS SUMMARY | 2024-09-13 18:56 | XMS_ITS | Clinical Summary ---
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 Gender Identity Not on file Sexual Orientation Not on file Plan of Treatment Health Maintenance Due Date Last Done Comments Hepatitis C Virus (HCV) Screening 1965 TdaP Immunization 1965 Colonoscopy 2009 Colorectal Cancer Screening 2009 Cologuard 2014 Immunochemical Fecal Occult Blood 2014 Pneumococcal Immunization (5 0+ years) (1 of 1 - PCV) 2014 Zoster Immunization (1 of 2) 2014 PSA Discussion 2019 Influenza Immunization (#1) 2023 SARS-COV-2 Immunization ( - season) 2023 Respiratory Syncytial Virus (RSV) Immunization (Adult) (1 - 1-dose 75+ series) 2039 Hepatitis B Immunization Aged Out No longer eligible based on patient's age to complete this topic Meningococcal Immunization (ACWY) Aged Out No longer eligible based on patient's age to complete this topic Pneumococcal Immunization Combined Aged Out No longer eligible based on patient's age to complete this topic Rotavirus Immunization Aged Out No lo nger eligible based on patient's age to complete this topic
--- OUTSIDE RECORDS SUMMARY | 2024-09-13 18:56 | XMS_ITS | Encounter Summary ---
Author Organization [facility] Address [address] [place] [address] Phone Care Team Providers Care Oracle Technical Architect Name Role Phone Abdoulaye Landis DO Primary Care Provider [phone] Dhruv Brito MD Unavailable [phone] Fanny Goldman DPT Unavailable [phone] Edenilson Blandon MD Primary Care Provi antionette Encounter Details Date Type Department Care Team (Late st Contact Info) Description 05/24/2019 Telephone [facility] Oncology [address] [place] [address] Nubia Malin, MINGLER OPERATOR Social History Tobacco Use Types Packs/Day Years Used Date Smoking Tobacco: Former Cigarettes 0.5 18 1 983 - 2001 Smokeless Tobacco: Never Alcohol Use Standard Drinks/Week Comments Yes 2 (1 standard drink = 0.6 oz pur e alcohol) Sex and Gender Information Value Date Recorded Sex Assigned at Not on file 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 Gender Identity Not on file Sexual Orientation Straight 08/07/2019 2: 59 PM CDT documented as of this encounter Plan of Treatment Not on file documented as of this encounter Visit Diagnoses Not on filedocumented in this encounter Additional Health Concerns Infection Onset Date Last Indicated Resolved Time COVID: Suspected 06/14/2020 06/14/2020 06/14/2020 8:39 PM CDT COVID: Suspected 03/19/2021 03/19/2021 03/19/2021 2:36 PM BIN WORKER documented as of this encounter Care Teams Oracle Technical Architect Relationship Specialty Start Date End Date Abdoulaye Landis DO PCP - General 05/22/16 07/18/24 Edenilson Blandon MD [address] [address] PCP - General Family Practice 07/19/24 Dhruv Brito MD [address] [place] [address] Medical Oncologist/Director Employee Communications Medical Oncology 05/28/20 Fanny Goldman DPT [address] [place] [address] Physical Therapist Physical Therapy 03/20/21 07/31/21 documented as of this encounter
--- OUTSIDE RECORDS SUMMARY | 2024-09-13 18:56 | XMS_ITS | Encounter Summary ---
Author Organization [facility] [place] [facility] Address [address] [place] [address] Phone Care Team Providers Care Manager Audit Name Role Phone Abdoulaye Landis DO Primary Care Provider [phone] Dhruv Brito MD Unavailable [phone] Fanny Goldman DPT Unavailable [phone] Edenilson Blandon MD Primary Care Provi antionette Encounter Details Date Type Department Care Team (Late st Contact Info) Description 01/18/2019 Telephone [facility] Oncology [address] [facility] [address] [place] [phone] Ольга Perez, B.A. 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 Gender Identity Not on file Sexual Orientation Straight 08/07/2019 2: 59 PM CDT documented as of this encounter Plan of Treatment Not on file documented as of this encounter Visit Diagnoses Not on filedocumented in this encounter Additional Health Concerns Infection Onset Date Last Indicated Resolved Time COVID: Suspected 06/14/2020 06/14/2020 06/14/2020 8:39 PM CDT COVID: Suspected 03/19/2021 03/19/2021 03/19/2021 2:36 PM HEATING ELEMENT WINDER documented as of this encounter Care Teams Manager Audit Relationship Specialty Start Date End Date Abdoulaye Landis DO PCP - General 05/22/16 07/18/24 Edenilson Blandon MD [address] [address] PCP - General Family Practice 07/19/24 Dhruv Brito MD [address] [place] [address] Medical Oncologist/Controller Mechanic Medical Oncology 05/28/20 Fanny Goldman [facility] [address] [place] [address] Physical Therapist Physical Therapy 03/20/21 07/31/21 documented as of this encounter
--- OUTSIDE RECORDS SUMMARY | 2024-09-13 18:56 | XMS_ITS | Encounter Summary ---
Author Organization [facility] Address [address] [place] [address] Phone Care Team Providers Care Manager Target Name Role Phone Abdoulaye Landis DO Primary Care Provider [phone] Dhruv Brito MD Unavailable [phone] Edenilson Blandon MD Primary Care Provi antionette Encounter Details Date Type Department Care Team (Late st Contact Info) Description 12/03/[address] [facility] Oncology [address] [facility] [address] [place] [address] Dakota Goff Social History Tobacco Use Types Packs/Day Years Used Date Smoking Tobacco: Former Cigarettes 0.5 18 1 983 - 2001 Smokeless Tobacco: Never Alcohol Use Standard Drinks/Week Comments Yes 0 (1 standard drink = 0.6 oz pur e alcohol) monthly or less AUDIT-C Answer Date Recorded Q1: How often do you have a drink containing alc ohol? Monthly or less 08/29/2020 Q2: How many drinks containi ng alcohol do you have on a typical day when you are drinking? 1 or 2 08/29/2020 Q3: How often do you have si x or more drinks on one occasion? 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 Gender Identity Not on file Sexual Orientation Straight 08/07/2019 2: 59 PM CDT documented as of this encounter Plan of Treatment Not on file documented as of this encounter Visit Diagnoses Not on filedocumented in this encounter Care Teams Manager Target Relationship Specialty Start Date End Date Abdoulaye Landis DO PCP - General 05/22/16 07/18/24 Edenilson Blandon MD [address] [address] PCP - General Family Practice 07/19/24 Dhruv Brito MD [address] [place] [address] [address] [place] [address] Medical Oncologist/Stemhole Borer Medical Oncology 05/28/20 documented as of this encounter
--- OUTSIDE RECORDS SUMMARY | 2024-09-13 18:56 | XMS_ITS | Encounter Summary ---
Author Organization [facility] Address [address] [place] [address] Phone Care Team Providers Care Community Nutrition Educator Name Role Phone Abdoulaye Landis DO Primary Care Provider [phone] Dhruv Brito MD Unavailable [phone] Fanny Goldman DPT Unavailable [phone] Edenilson Blandon MD Primary Care Provi antionette Reason for Visit * Reason Onset Date Comments SCHEDULE UPDATE 05/03/2018 Encounter Details Date Type Department Care Team (Late st Contact Info) Description 05/03/2018 Telephone [facility] Oncology [address] [facility] [address] [place] [phone] Danielle Holden, A SCHEDULE UPDATE Social History Tobacco Use Types Packs/Day Years Used Date Smoking Tobacco: Former Cigarettes 1 983 - 1999 Smokeless Tobacco: Never Sex and Gender Information Value Date Recorded Sex Assigned at Not on file 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 Gender Identity Not on file Sexual Orientation Straight 08/07/2019 2: 59 PM CDT documented as of this encounter Plan of Treatment Not on file documented as of this encounter Visit Diagnoses Not on filedocumented in this encounter Additional Health Concerns Infection Onset Date Last Indicated Resolved Time COVID: Suspected 06/14/2020 06/14/2020 06/14/2020 8:39 PM CDT COVID: Suspected 03/19/2021 03/19/202103/19/2021 2:36 PM PIPE FITTER documented as of this encounter Care Teams Community Nutrition Educator Relationship Specialty Start Date End Date Abdoulaye Landis DO PCP - General 05/22/16 07/18/24 Edenilson Blandon MD [address] [address] PCP - General Family Practice 07/19/24 Dhruv Brito MD [address] [place], [place] [id number] Medical Oncologist/Bracelet Maker Novelty Medical Oncology 05/28/20 Fanny Goldman DPT [address] [place], [place] [id number] Physical Therapist Physical Therapy 03/20/21 07/31/21 documented as of this encounter
--- OUTSIDE RECORDS SUMMARY | 2024-09-13 18:56 | XMS_ITS | Clinical Summary ---
Author Organization [facility] Address [address] [place] [address] Care Team Providers Care Geriatric Nurse Assistant Name Role Phone Dhruv Brito MD Unavailable [phone] Edenilson Blandon MD Primary Care Provi antionette Allergies No known active allergies Medications budesonide (PULMICORT) 0.25 mg/2 mL nebulizer solution Take 2 mL (0.25 mg total) by nebulization 2 (two) times a day as needed (nasal polyps) 11/07/19 22 Active amLODIPine (NORVASC) 10 mg tabletIndicati ons:Hypertensi on, unspecified type Take 1 tablet (10 mg total) by mouth daily 30 tablet 09/14/19 24 Active ferrous sulfate 325 mg (65 mg of elemental iron) tabletIndicati ons:Iron Deficiency Anemia Take 1 tablet (325 mg total) by mouth every other day Active calcium citrate-vitami n D3 (CITRACAL+D) 315 mg-5 mcg (200 unit) per tabletIndicati ons:Hypocalcem ia Prevention,Pre vention of Vitamin D Deficiency Take 1 tablet by mouth daily before breakfast Active naproxen (ALEVE) 220 mg tablet Take 1 tablet (220 mg total) by mouth every 12 (twelve) hours as needed for pain Active acetaminophen (TYLENOL) 325 mg tablet Take 2 tablets (650 mg total) by mouth every 6 (six) hours as needed for pain Active acetaminophen- aspirin-caffei ne (EXCEDRIN MIGRAINE) 250-250-65 mg per tablet Take 1 tablet by mouth every 6 (six) hours as needed for headaches Active leuprolide, 3 month, (LUPRON) 11.25 mg injection Inject 11.25 mg into the muscle as instructed every 3 (three) months Active enzalutamide (XTANDI) 40 mg tabletIndicati ons:Malignant neoplasm of prostate (HCC) Take 3 tablets (120 mg total) by mouth daily Take with or without food at the same time each day. Do not crush, break, or dissolve. Swallow tablet whole. 90 tablet 11 05/15/19 25 Active enzalutamide (XTANDI) 40 mg tabletIndicati ons:Malignant neoplasm of prostate (HCC) Take 4 tablets (160 mg total) by mouth daily Take with or without food at the same time each day. Do not crush, break, or dissolve. Swallow tablet whole. 120 tablet 11 08/25/19 25 Active lisinopriL (PRINIVIL,ZEST RIL) 40 mg tablet TAKE 1 TABLET DAILY 90 tablet 3 09/13/19 25 Active lisinopriL (PRINIVIL,ZEST RIL) 40 mg tablet TAKE 1 TABLET DAILY 90 tablet 5 04/21/19 24 025 Discontinued Active Problems Problem Noted Date Diagnosed Date Essential hypertension 07/18/2024 Assessment & Plan (07/18/2024 3:11 PM CDT): Orders: Lipid panel; Future Stage 3a chronic kidney disease 07/18/2024 Assessment & Plan (07/18/2024 3:11 PM CDT): Gross hematuria 07/18/2024 Assessment & Plan (07/18/2024 3:11 PM CDT): Class 1 obesity due to exces s calories with serious comorbidity and body mass index (BMI) of 34.0 to 34.9 in adult 07/18/2024 Assessment & Plan (07/18/2024 3:11 PM CDT): He is obese and would benefit from weight loss. Need for tetanus booster 07/18/2024 Assessment & Plan (07/18/2024 3:11 PM CDT): Hyperkalemia 06/15/2020 Assessment & Plan (06/15/2020 6:27 PM CDT): - In setting of renal failure - presented with K 6.1 - s/p lokelma in ED, improved to 5.2 in interim - CTM Assessment & Plan (06/15/2020 1:32 AM CDT): 2/2 renal failure -s/p insulin, glucose, calcium, albuterol, lokelma -K 6.1 in ED, improved to 5.2 -bmp in AM Sleep apnea 06/15/2020 Assessment & Plan (06/15/2020 6:28 PM CDT): - CPAP overnight Assessment & Plan (06/15/2020 1:32 AM CDT): -CPAP at night Acute renal failure 06/14/2020 Assessment & Plan (06/16/2020 1:33 PM CDT): - Presented with anuria with N/V - Evaluation with Cr 10.54, BUN 100, K 6.1. CT abd/pelvis revealed new, bilateral/moderate hydroureteronephrosis with decompressed urinary bladder. - Urology was consulted and patient underwent bilateral nephrostomy tube placement by IR. - Given extensive net-negative will begin to give 1/2NS fluid back to match 50% fluid losses - Strict I/Os, avoid nephrotoxins, CTM Cr - Patient needs to have follow-up after 6-8 weeks for catheter exchange or internalization Assessment & Plan (06/15/2020 5:12 AM CDT): Patient has been Anuric for 2 days and 2/2 postobstructive nephropathy in setting of occluded bilateral ureteral stents -bilateral ureteral stents placed then August of 2019 and were exchanged in March of 2020 -urology, Nephrology, IR consults have been placed -in lieu of bilateral ureteral stents being occluded in the patient having anuresis patient went for bilateral percutaneous nephrostomy tubes on 06/14 -monitor output from nephrostomy tubes closely -am bmp -UA abnormal- cipro 400 BID IV Hydronephrosis 09/06/2019 Overview (09/06/2019): Added automatically from request for surgery [id number] Assessment & Plan (04/05/2020 10:56 PM COOK BOAT): Possibly 2/2 stent needing upsizing vs other obstructive etiology. Bladder appeared normal on renal ultrasound making an obstruction distal to the bladder less likely -s/p b/l stent upsizing 04/05/20 by urology -Monitor Cr Bladder tumor 04/07/2019 Overview (04/07/2019): Added automatically from request for surgery [id number] Prostate cancer 04/04/2018 Overview (04/04/2018): Added automatically from request for surgery [id number] Assessment & Plan (07/18/2024 3:11 PM CDT): Assessment & Plan (04/05/2020 10:56 PM COOK BOAT): recurrent, w/ rising PSA. -Med onc c/s -Will plan to defer bone scan and CT a/p w/ contrast as an outpatient; discussed w/ medonc in [facility]. Other melanin hyperpigmentation 11/03/2011 Malignant neoplasm of prostate 07/28/2011 Assessment & Plan (06/16/2020 1:36 PM CDT): - Dx in 2011 s/p radiotherapy and androgen deprivation therapy - Recurrence in 2015 and had radical prostatectomy 08/12 and was treated with Firmagon/Casodex - Active treatment with enzalutamide - holding while inpatient - Will obtain MRI Abd/Pelvis if GFR > 30 (though doubt will improve to this extent prior to discharge). - Follows with Dr. Brito Assessment & Plan (06/15/2020 1:33 AM CDT): -Dx in 2011 s/p radiotherapy and androgen deprivation therapy -recurrence in 2015 and had radical prostatectomy 08/12 and was treated with Firmagon/Casodex -now being treated with enzalutamide -follows with Dr. Brito -onc c/s Resolved Problems Problem Noted Date Diagnosed Date Resolved Date Hematuria 12/13/2023 07/18/2024 Lesion of bladder 04/04/2018 07/18/2024 Overview (04/04/2018): Added automatically from request for surgery [id number] Viral wart 04/12/2012 07/18/2024 Encounters Date Type Department Care Team Description 09/01/2024 9:00 AM CDT Office Visit [facility] [address] [facility] [address] [place] [id number] Sabino Barros MD Hematuria, unspecified type (Primary Dx) 08/31/2024 3:30 PM CDT Infusion [facility] at [address] [address] Prostate cancer (HCC) (Primary Dx) 08/30/2024 Orders Only [address] [place] [phone] Chantel Blum RN Prostate cancer (HCC) (Primary Dx) 08/29/2024 Orders Only [address] [place] [phone] Chantel Blum, CHRIS Malignant neoplasm of prostate (HCC) (Primary Dx); Prostate cancer (HCC) 08/27/2024 Results Follow-Up [address] [place] [address] Lacie Galvez NP PSA diagnostic 08/24/2024 Orders Only [address] [place] [id number] Chantel Blum, CHRIS Malignant neoplasm of prostate (HCC) (Primary Dx) 08/23/2024 Orders Only [address] [place] [phone] Dhruv Brito MD 08/23/2024 Orders Only [place] [address] [facility] [address] [place] [address] Chantel Blum RN 08/17/2024 6:40 AM CDT [address] [address] Prostate cancer (HCC) 08/17/2024 6:35 AM CDT [address] [address] 08/07/2024 3:30 PM CDT [address] [address] Urinary tract infection without hematuria, site unspecified 08/07/2024 Orders Only [facility] [address] [place] [address] Sabino Barros MD Urinary tract infection without hematuria, site unspecified (Primary Dx) 07/21/2024 Orders Only [facility] Emergency Department [address] [place] [phone] Rosi Newberry RN 07/19/2024 3:10 AM CDT - 07/19/2024 9:04 AM CDT Emergency [facility] Emergency Department [address] [place] [address] Edenilson Saleh MD Thompson, Karima Arrianna, MD Urinary retention (Primary Dx); History of prostate cancer; Chronic renal impairment, unspecified CKD stage; Other hydronephrosis Discharge Disposition: Discharge to home or self care 07/19/2024 Results Follow-Up [facility] Emergency Department [address] [place] [address] Rosi Newberry RN Comprehensive metabolic panel, Urinalysis reflex to microscopic and culture Urine, Differential, auto, Additional followed-up results: 3 07/18/2024 2:30 PM CDT Office Visit [facility] Primary Care at [address] [place] [phone] Edenilosn Blandon MD Essential hypertension (Primary Dx); Prostate cancer (HCC); Stage 3a chronic kidney disease (HCC); Gross hematuria; Class 1 obesity due to excess calories with serious comorbidity and body mass index (BMI) of 34.0 to 34.9 in adult; Need for tetanus booster 07/17/2024 Telephone [facility] [address] [facility] [address] [place] [address] Hyun Duke CMA 07/12/2024 Telephone [facility] [address] [facility] [address] [place] [phone] Brittany Bain RN 06/23/2024 Orders Only [facility] [address] [facility] [address] [place] [phone] Maureen Bridges CMA Prostate cancer (HCC) (Primary Dx); Malignant neoplasm of prostate (HCC) from Last 3 Months Immunizations Immunization Administration Dates Next Due Influenza, Unspecified 02/27/2020 Td, adsorbed 07/18/2024 Surgical History Surgery Date Site/Laterality Comments PROSTATECTOMY 07/27/2016 - 08/26/2016 PROSTATE BIOPSY Multiple-- Last 2016 TRANSURETHRAL RESECTION OF BLADDER TUMOR 05/01/2019 and 04/11/18 BLADDER TUMOR EXCISION 09/14/2019 Bilateral stent placemant and clot evacuation PERCUTANEOUS NEPHROSTOMY PCN RIGHT 06/14/2020 Right NEPHROSTOGRAM THROUGH EXISTING CATHETER BILATERAL 08/15/2020 Bilateral NEPHROSTOGRAM THROUGH EXISTING CATHETER BILATERAL 08/29/2020 Bilateral URETERAL STENT PLACEMENT 04/05/2020 Bilateral Exchange- and 12/27/19 URETERAL STENT PLACEMENT 03/29/2020 - 03/28/2021 exchange Medical History Medical History Date Comments Prostate cancer (HCC) Dxd 2011-- s/p radiation (last 2011) with recurrence 2017 s/p prostatectomy Obesity Former smoker Quit 2000 Sleep apnea +Sleep study 05/28 007-- Uses CPAP machine at 9 cm H2O Constipation Incontinence Chronic kidney disease Essential hypertension 07/18/2024 Family History Medical History Relation Name Comments Diabetes Father Family history of diabetes mellitus - (Added by TW Conv) Heart failure Father Hypertension Father Family history of hypertension - (Added by TW Conv) Heart disease Maternal Grandmother Anesthesia problems Neg Hx Relation Name Status Comments Father (Age 81) Maternal Grandmother Social History Tobacco Use Types Packs/Day Years Used Date Smoking Tobacco: Former Cigarettes 0.5 18 1 983 - 2000 Smokeless Tobacco: Never Tobacco Cessation:Counseling Given: Not Answered Alcohol Use Standard Drinks/Week Comments Yes 0 (1 standard drink = 0.6 oz pur e alcohol) monthly or less AUDIT-C Answer Date Recorded Q1: How often do you have a drink containing alc ohol? 2-4 times a month 12/27/2023 Q2: How many drinks containi ng alcohol do you have on a typical day when you are drinking? 1 or 2 12/27/2023 Q3: How often do you have si x or more drinks on one occasion? Never 12/27/2023 Personal Safety Answer Date Recorded Have you ever been in or are you currently in a harmful physical or emotional relationship or is someone making you feel afraid or unsafe? Denies 07/19/2024 Sex and Gender Information Value Date Recorded Sex Assigned at Not on file Legal Sex Male 9:37 AM COOK BOAT Gender Identity Not on file Sexual Orientation Straight 08/07/2019 2: 59 PM CDT Obstetrics History Last Filed Vital Signs Vital Sign Reading Time Taken Comments Blood Pressure 122/75 08/31/2024 3:40 PM CDT Pulse 66 08/31/2024 3:40 PM CDT Temperature 36.6 C (97.8 F) 08/31/2024 3:40 PM CDT Respiratory Rate 17 08/31/2024 3:40 PM CDT Oxygen Saturation 98% 08/31/2024 3:40 PM CDT Inhaled Oxygen Concentration - - Weight 110.8 kg (244 lb 3.2 oz) 08/31/2024 3:40 PM CDT Height 180.3 cm (5' 11) 07/18/2024 2:39 PM CDT Body Mass Index 34.06 07/18/2024 2:39 PM CDT Plan of Treatment Health Maintenance Due Date Last Done Comments Colon Cancer Screening-Colonoscopy 1964 Depression Screening 1964 Hepatitis C Screening 1964 Regular Well Visit/Exam 18-64 1982 Pneumococcal vaccine <65 (1 of 2 - PCV) 1983 Zoster Vaccine (1 of 2) 1983 DTaP/Tdap/Td Vaccine (1 - Tdap) 07/19/2024 Influenza Vaccine (Season Ended) 2024 02/27/20 20 Prostate Cancer Screening-PSA 08/17/2026, 05/19/2024, 04/07/2024, Additional history exists Hepatitis B Screening Completed 09/07/2000 , 06/18/1998, 05/21/1998 Medical Devices Explanted Type Area Waxed Bag Machine Operator Device Identifier Shelf Expiration Date Model / Serial / Lot [employer] [id number] Universa 6fr 26cm Radiopaque Positioner Braid Tether Low Friction - [id number] - [id number] Implanted:Qty: 1 on 09/14/2019 by Shahzad Dumas MD at [facility] Explanted:Qty: 1 on 12/27/2019 by Shahzad Dumas MD at [facility] Stent Right: Ureter [employer] [id number] 05/08/2022 [id number] / [id number] / [id number] [employer] [id number] Universa 6fr 26cm Radiopaque Positioner Braid Tether Low Friction - [id number] Implanted:Qty: 1 on 09/14/2019 by Shahzad Dumas MD at [facility] Explanted:Qty: 1 on 12/27/2019 by Shahzad Dumas MD at [facility] Stent Left: Ureter [employer] [id number] 05/08/2022 [id number] / / [id number] [employer] [id number] Universa 6fr 26cm Radiopaque Positioner Braid Tether Low Friction - [id number] - [id number] Implanted:Qty: 1 on 12/27/2019 by Shahzad Dumas MD at [facility] Explanted:Qty: 1 on 04/05/2020 at [facility] Stent Right: Ureter [employer] [id number] 10/08/2022 [id number] / [id number] / [id number] [employer] [id number] Universa 6fr 26cm Radiopaque Positioner Braid Tether Low Friction - [id number] - [id number] Implanted:Qty: 1 on 12/27/2019 by Shahzad Dumas MD at [facility] Explanted:Qty: 1 on 04/05/2020 at [facility] Stent Left: Ureter [employer] [id number] 06/27/2021 [id number] / [id number] / [id number] [employer] [id number] Universa 8fr 26cm Radiopaque Positioner Monofilament Tether Firm - [id number] Implanted:Qty: 1 on 04/05/2020 at [facility] Explanted:Qty: 1 on 06/18/2020 by Niharika Deras MD Stent Right: Ureter [employer] [id number] 07/17/2022 [id number] / / [id number] [employer] [id number] Universa 8fr 26cm Radiopaque Positioner Monofilament Tether Firm - [id number] Implanted:Qty: 1 on 04/05/2020 at [facility] Explanted:Qty: 1 on 06/18/2020 by Niharika Deras MD Stent Left: Ureter [employer] [id number] 07/17/2022 [id number] / / [id number] Procedures Procedure Name Priority Date/Time Associated Diagnosis Comments POCT URINALYSIS DIPSTICK Routine 09/01/2024 9:08 AM CDT Hematuria, unspecified type EGFR Routine 08/17/2024 6:49 AM CDT EGFR Routine 08/17/2024 6:49 AM CDT Prostate cancer (HCC) URINALYSIS, MICROSCOPIC ONLY Routine 08/17/2024 6:49 AM CDT DIFFERENTIAL AUTO Routine 08/17/2024 6:4 9 AM CDT Prostate cancer (HCC) DIFFERENTIAL AUTO Routine 08/17/2024 6:4 9 AM CDT PSA DIAGNOSTIC Routine 08/17/2024 6:49 AM CDT Prostate cancer (HCC) COMPREHENSIVE METABOLIC PANEL Routine 08/17/2024 6:49 AM CDT Prostate cancer (HCC) CBC WITH AUTO DIFFERENTIAL Routine 08/17/2024 6:49 AM CDT Prostate cancer (HCC) TOTAL TESTOSTERONE Routine 08/17/2024 6: 49 AM CDT Prostate cancer (HCC) FERRITIN Routine 08/17/2024 6:49 AM CDT IRON PROFILE W/ IBC Routine 08/17/2024 6 :49 AM CDT ALBUMIN CREATININE RATIO, URINE Routine 08/17/2024 6:49 AM CDT CBC WITH AUTO DIFFERENTIAL Routine 08/17/2024 6:49 AM CDT RENAL FUNCTION PANEL Routine 08/17/2024 6:49 AM CDT URINALYSIS AND REFLEX TO MICROSCOPIC AND CULTURE Routine 08/17/2024 6:49 AM CDT URINE CULTURE Routine 08/07/2024 3:31 PM CDT Urinary tract infection without hematuria, site unspecified URINALYSIS, MICROSCOPIC ONLY STAT 07/19/2024 7:27 AM CDT URINE CULTURE STAT 07/19/2024 7:27 AM CDT URINALYSIS AND REFLEX TO MICROSCOPIC AND CULTURE STAT 07/19/2024 7:27 AM CDT NC CRITICAL CARE ILL/INJURED PATIENT INIT 30-74 MIN Routine 07/19/2024 5:[address] ABDOMEN PELVIS W CONTRAST ED 07/19/2024 5:29 AM CDT EGFR STAT 07/19/2024 3:49 AM CDT DIFFERENTIAL AUTO STAT 07/19/2024 3:4 9 AM CDT COMPREHENSIVE METABOLIC PANEL STAT 07/19/2024 3:49 AM CDT CBC WITH AUTO DIFFERENTIAL STAT 07/19/2024 3:49 AM CDT from Last 3 Months Results * (ABNORMAL) POCT urinalysis dipstick (09/01/2024 9:08 AM CDT) Color, Urine, POC Yellow Clarity, ur, POC Clear Clear Glucose, ur, POC Negative Negative Ketones, ur, POC Negative Negative Blood, ur, POC 3+(A) Negative pH, ur, POC 5.0 5.0 - 8.0 Protein, ur, POC 1+(A) Negative Nitrite, ur, POC Negative Negative Leukocytes, ur, POC Negative Negative Lot Number x Urine 09/01/2024 9:08 AM CDT us Sabino Barros MD POINT OF CARE TEST ORD ERABLES Final Result * (ABNORMAL) eGFR (08/17/2024 6:49 AM CDT) eGFR 53(L) >=60 mL/min/1. 73 m2 Comment: Interpretive Data Reference Interval Normal >/= 90 mL/min/1.73m2 Mildly decreased* 60 - 89 mL/min/1.73m2 Mildly to moderately decreased 45 - 59 mL/min/1.73m2 Moderately to severely decreased 30 - 44 mL/min/1.73m2 Severely decreased 15 - 29 mL/min/1.73m2 Kidney Failure < 15 mL/min/1.73m2 *Relative to young adult level Estimated glomerular filtration rate is determined by the 2020 CKD-EPI equation recommended by the National Kidney Foundation (A Unifying Approach to GFR Estimation: Recommendations of the NKF-ASK Task Force on Reassessing the Inclusion of Race in Diagnosing Kidney Disease, JASN 2020). The CKD-EPI equation should not be used for patients with unstable renal function and has not been validated in children and those over 70. Current interpretive data was last reviewed 2021. Blood 08/17/2024 6:49 AM CDT 08/17/2024 6:55 AM CDT us Andres Leigh MD LAB BLOOD ORDERABLES Final Res ult Performing Organization Address City/[facility]/ZIP Co de Phone Number [facility] ([place]) 1 [facility] [place] [employer] [place] [address] * (ABNORMAL) eGFR (08/17/2024 6:49 AM CDT) eGFR 53(L) >=60 mL/min/1. 73 m2 Comment: Interpretive Data Reference Interval Normal >/= 90 mL/min/1.73m2 Mildly decreased* 60 - 89 mL/min/1.73m2 Mildly to moderately decreased 45 - 59 mL/min/1.73m2 Moderately to severely decreased 30 - 44 mL/min/1.73m2 Severely decreased 15 - 29 mL/min/1.73m2 Kidney Failure < 15 mL/min/1.73m2 *Relative to young adult level Estimated glomerular filtration rate is determined by the 2020 CKD-EPI equation recommended by the National Kidney Foundation (A Unifying Approach to GFR Estimation: Recommendations of the NKF-ASK Task Force on Reassessing the Inclusion of Race in Diagnosing Kidney Disease, JASN 2020). The CKD-EPI equation should not be used for patients with unstable renal function and has not been validated in children and those over 70. Current interpretive data was last reviewed 2021. Blood 08/17/2024 6:49 AM CDT 08/17/2024 6:55 AM CDT us Dhruv Brito MD LAB BLOOD ORDERABLES F inal Result Performing Organization Address City/[facility]/ZIP Co de Phone Number [facility] [place] ([place]) 1 [facility] Department [place] [employer] [place] [address] * (ABNORMAL) Differential, auto (08/17/2024 6:49 AM CDT) Neutrophil abs 1.82 1.50 - 6.50 K/cumm Imm gran abs 0.01 0.00 - 0.10 K/cumm [facility] ([place]) Lymphocyte abs 0.78(L) 0.80 - 3.30 K/cumm [facility] ([place]) Monocyte abs 0.38 0.20 - 0.80 K/cumm [facility] ([place]) Eosinophil abs 0.39 0.00 - 0.50 K/cumm [facility] ([place]) Basophil abs 0.04 0.00 - 0.10 K/cumm [facility] ([place]) Neutrophil pct 53.2 % [facility] ([place]) Comment: Interpretive Data Percent cell count reference ranges are not reported, since discordance with absolute values may lead to misinterpretation of CBC data. Current Interpretive Data was last revised on 2017. Imm gran pct 0.3 % [facility] ([place]) Comment: Interpretive Data Percent cell count reference ranges are not reported, since discordance with absolute values may lead to misinterpretation of CBC data. Current Interpretive Data was last revised on 2017. Lymphocyte pct 22.8 % [facility] ([place]) Comment: Interpretive Data Percent cell count reference ranges are not reported, since discordance with absolute values may lead to misinterpretation of CBC data. Current Interpretive Data was last revised on 2017. Monocyte pct 11.1 % [facility] ([place]) Comment: Interpretive Data Percent cell count reference ranges are not reported, since discordance with absolute values may lead to misinterpretation of CBC data. Current Interpretive Data was last revised on 2017. Eosinophil pct 11.4 % [facility] ([place]) Comment: Interpretive Data Percent cell count reference ranges are not reported, since discordance with absolute values may lead to misinterpretation of CBC data. Current Interpretive Data was last revised on 2017. Basophil pct 1.2 % [facility] ([place]) Comment: Interpretive Data Percent cell count reference ranges are not reported, since discordance with absolute values may lead to misinterpretation of CBC data. Current Interpretive Data was last revised on 2017. Blood 08/17/2024 6:49 AM CDT 08/17/2024 6:55 AM CDT us Dhruv Brito MD LAB BLOOD ORDERABLES F inal Result [facility] ([place]) 1 [facility] [place] [address] * Differential, auto (08/17/2024 6:49 AM CDT) Neutrophil abs 1.83 1.50 - 6.50 K/cumm Imm gran abs 0.01 0.00 - 0.10 K/cumm [facility] ([place]) Lymphocyte abs 0.85 0.80 - 3.30 K/cumm [facility] ([place]) Monocyte abs 0.42 0.20 - 0.80 K/cumm [facility] ([place]) Eosinophil abs 0.41 0.00 - 0.50 K/cumm [facility] ([place]) Basophil abs 0.04 0.00 - 0.10 K/cumm [facility] ([place]) Neutrophil pct 51.4 % [facility] ([place]) Comment: Interpretive Data Percent cell count reference ranges are not reported, since discordance with absolute values may lead to misinterpretation of CBC data. Current Interpretive Data was last revised on 2017. Imm gran pct 0.3 % [facility] ([place]) Comment: Interpretive Data Percent cell count reference ranges are not reported, since discordance with absolute values may lead to misinterpretation of CBC data. Current Interpretive Data was last revised on 2017. Lymphocyte pct 23.9 % [facility] ([place]) Comment: Interpretive Data Percent cell count reference ranges are not reported, since discordance with absolute values may lead to misinterpretation of CBC data. Current Interpretive Data was last revised on 2017. Monocyte pct 11.8 % [facility] ([place]) Comment: Interpretive Data Percent cell count reference ranges are not reported, since discordance with absolute values may lead to misinterpretation of CBC data. Current Interpretive Data was last revised on 2017. Eosinophil pct 11.5 % [facility] ([place]) Comment: Interpretive Data Percent cell count reference ranges are not reported, since discordance with absolute values may lead to misinterpretation of CBC data. Current Interpretive Data was last revised on 2017. Basophil pct 1.1 % [facility] ([place]) Comment: Interpretive Data Percent cell count reference ranges are not reported, since discordance with absolute values may lead to misinterpretation of CBC data. Current Interpretive Data was last revised on 2017. Blood 08/17/2024 6:49 AM CDT 08/17/2024 6:55 AM CDT Andres Leigh MD LAB BLOOD ORDERABLES Final Res ult Performing Organization Address [facility]/ZIP Co de Phone Number KEDAR REYNOSO ([place]) 1 [place] [address] * Iron profile w/ IBC (08/17/2024 6:49 AM CDT) Iron 71 50 - 150 mcg/dL TIBC 281 250 - 400 mcg/dL [facility] ([place]) Transferrin saturation 25 20 - 50 % [facility] ([place]) Blood 08/17/2024 6:49 AM CDT 08/17/2024 6:55 AM CDT Andres Leigh MD LAB BLOOD ORDERABLES Final Res ult Performing Organization Address [facility] Co de Phone Number KEDAR REYNOSO ([place]) [address] [place] [address] * (ABNORMAL) Urinalysis reflex to microscopic and culture Urine (08/17/2024 6:49 AM CDT) Color, ur Straw Yellow Clarity, ur Clear Clear [facility] ([place]) Specific gravity, ur 1.013 1.003 - 1.030 [facility] ([place]) pH, urine 5.5 [facility] ([place]) Comment: Interpretive Data U rine pH is affected by diet, medications, systemic acid-base disturbances, and renal tubular function. pH may affect urinary stone formation. For example, urine pH below 6.0 may help reduce the tendency for calcium phosphate stones and pH greater than 6.0 may reduce the tendency for uric acid stone formation. Source: [facility] [employer] Current Interpretive Data was last revised on 2017 Protein, ur ql Negative Negative [facility] ([place]) Glucose, ur ql Negative Negative [facility] ([place]) Ketones, ur Negative Negative [facility] ([place]) Bilirubin, ur Negative Negative [facility] ([place]) Blood, ur 2+(A) Negative [facility] ([place]) Urobilinogen, ur <2.0 <2.0 mg/dL [facility] ([place]) Nitrite, ur Negative Negative [facility] ([place]) Leukocyte esterase, ur Negative Negative [facility] ([place]) UA reflex comment Reflex to microscopic UA will be performed. [facility] ([place]) Urine 08/17/2024 6:49 AM CDT 08/17/2024 6:56 AM CDT us Andres Leigh MD LAB MICROBIOLOGY - GENERAL ORD ERABLES Final Result [facility] ([place]) 1 [facility] Department [place] [address] * (ABNORMAL) CBC with auto differential (08/17/2024 6:49 AM CDT) WBC 3.42(L) 3.80 - 9.90 K/cumm Hgb 14.3 13.0 - 17.5 g/dL [facility] ([place]) Hct 42.0 38.9 - 50.3 % [facility] ([place]) Plt 154 150 - 400 K/cumm [facility] ([place]) MPV 9.3 9.1 - 12.3 fL [facility] ([place]) RBC 4.60 4.30 - 5.80 M/cumm [facility] ([place]) MCV 91.3 81.3 - 96.4 fL [facility] ([place]) MCH 31.1 27.1 - 33.3 pg [facility] ([place]) MCHC 34.0 32.3 - 35.7 g/dL [facility] ([place]) RDW CV 13.2 11.1 - 14.9 % [facility] ([place]) RDW SD 44.2 35.7 - 48.1 fL [facility] ([place]) NRBC abs 0.00 0.00 - 0.01 K/cumm [facility] ([place]) Blood 08/17/2024 6:49 AM CDT 08/17/2024 6:55 AM CDT us Dhruv Brito MD LAB BLOOD ORDERABLES F inal Result [facility] ([place]) 1 [facility] Department [place] [address] * (ABNORMAL) CBC with auto differential (08/17/2024 6:49 AM CDT) WBC 3.56(L) 3.80 - 9.90 K/cumm Hgb 14.1 13.0 - 17.5 g/dL [facility] ([place]) Hct 41.8 38.9 - 50.3 % [facility] ([place]) Plt 149(L) 150 - 400 K/cumm [facility] ([place]) MPV 9.5 9.1 - 12.3 fL [facility] ([place]) RBC 4.54 4.30 - 5.80 M/cumm [facility] ([place]) MCV 92.1 81.3 - 96.4 fL [facility] ([place]) MCH 31.1 27.1 - 33.3 pg [facility] ([place]) MCHC 33.7 32.3 - 35.7 g/dL [facility] ([place]) RDW CV 13.2 11.1 - 14.9 % [facility] ([place]) RDW SD 44.3 35.7 - 48.1 fL [facility] ([place]) NRBC abs 0.00 0.00 - 0.01 K/cumm [facility] ([place]) Blood 08/17/2024 6:49 AM CDT 08/17/2024 6:55 AM CDT us Andres Leigh MD LAB BLOOD ORDERABLES Final Res ult [facility] ([place]) 1 [facility] Department [place] [address] * (ABNORMAL) Albumin Creatinine Ratio, Urine (08/17/2024 6:49 AM CDT) Albumin Ur 30.9 mg/L Comment: Interpretive Data No reference range established. Current interpretive data was last revised 2018. Testing performed by: [facility], [address] [place] [address]., [id number] Creatinine Ur 61.8 mg/dL [facility] ([place]) Comment: Interpretive Data No reference range established. Current interpretive data was last revised 2018. Testing performed by: [address] [address] Albumin Creatinine Ratio, Ur 50(H) 1 - 29 mg/g [facility] ([place]) Comment:Testing performed by : [facility], [address] [place] [address]., [id number] Urine 08/17/2024 6:49 AM CDT 08/17/2024 9:36 AM CDT Narrative [facility] ([place]) - 08/17/2024 10:34 AM CDT [phone] us Andres Leigh MD LAB URINE ORDERABLES Final Res ult Performing Organization Address City/[facility]/ZIP Co de Phone Number [facility] ([place]) 1 [facility] [email or web address] [address] * (ABNORMAL) Urinalysis, microscopic only (08/17/2024 6:49 AM CDT) WBC, ur 0-5 0 - 5 /HPF RBC, ur >50(A) 0 - 2 /HPF [facility] ([place]) Mucous, ur Present(A) K[facility]AR [facility] ([place]) Culture Reflex Comment Reflex conditions for urine culture (WBC >10) not met. [facility] ([place]) Urine 08/17/2024 6:49 AM CDT 08/17/2024 6:56 AM CDT Andres Leigh MD LAB URINE ORDERABLES Final Res ult Performing Organization Address City/[facility]/ZIP Co de Phone Number [facility] ([place]) 1 [facility] [place] [employer] [place] [address] * (ABNORMAL) Total testosterone (08/17/2024 6:49 AM CDT) Testosterone <3(L) 193 - 740 ng/dL Comment:Testing performed by : [facility], [address] [place] [address]., [id number] Blood 08/17/2024 6:49 AM CDT 08/17/2024 9:36 AM CDT Dhruv Brito MD LAB BLOOD ORDERABLES F inal Result [facility] ([place]) 1 [facility] [email or web address] [address] * PSA diagnostic (08/17/2024 6:49 AM CDT) PSA-Total 0.38 <=5.40 ng/mL Comment: Interpretive Data AGE SEX REFERENCE INTERVAL 0 minutes-150 years Female None 0 minutes-49 years Male None 50-59 years Male 0-3.90 60-69 years Male 0-5.40 70-79 years Male 0-6.20 80-150 years Male 0-6.20 The Steffany PSA Total assay procedure was used. Results from different manufacturers or methods may not be comparable. Serial testing should be performed using the same method. Current interpretive data last revised 21. Blood 08/17/2024 6:49 AM CDT 08/17/2024 6:55 AM CDT us Dhruv Brito MD LAB BLOOD ORDERABLES F inal Result [facility] ([place]) 1 [facility] [email or web address] [address] * Ferritin (08/17/2024 6:49 AM CDT) Ferritin 84 30 - 400 ng/mL Blood 08/17/2024 6:49 AM CDT 08/17/2024 6:55 AM CDT us Andres eLigh MD LAB BLOOD ORDERABLES Final Res ult Performing Organization Address City/State/[facility] Co de Phone Number KEDAR RE[facility]NOSO ([place]) 1 [facility] Department [place] [address] * (ABNORMAL) Renal function panel (08/17/2024 6:49 AM CDT) Sodium 138 135 - 145 mmol/L Potassium, pl 4.4 3.3 - 4.9 mmol/L [facility] ([place]) Chloride 104 97 - 110 mmol/L [facility] ([place]) CO2 23 22 - 32 mmol/L [facility] ([place]) Anion gap 11 2 - 15 mmol/L [facility] ([place]) BUN 28(H) 6 - 25 mg/dL [facility] ([place]) Creatinine 1.49(H) 0.80 - 1.30 mg/dL [facility] ([place]) Glucose 133 70 - 199 mg/dL [facility] ([place]) Comment: Interpretive Data Fasting glucose >/= 126 mg/dl is diagnostic for diabetes. Fasting is defined as no caloric intake for at least 8 hours. Fasting glucose between 100 mg/dl to 125 mg/dl is diagnostic of prediabetes. In a patient with classic symptoms of hyperglycemia or hyperglycemic crisis, a random glucose >/= 200 mg/dl is diagnostic for diabetes. In the absence of unequivocal hyperglycemia, results should be confirmed by repeat testing. The classification and Diagnosis of Diabetes Diabetes Care 2021; 46: S19-S40. Current interpretive data was last revised 2022. Calcium 9.7 8.5 - 10.3 mg/dL [facility] ([place]) Phosphorus, pl 3.3 2.3 - 4.5 mg/dL [facility] ([place]) Albumin 3.9 3.5 - 5.0 g/dL [facility] ([place]) Blood 08/17/2024 6:49 AM CDT 08/17/2024 6:55 AM CDT us Andres Leigh MD LAB BLOOD ORDERABLES Final Res ult [facility]EDAR REYNOSO ([place]) 1 [facility] Department [place] [address] * (ABNORMAL) Comprehensive metabolic panel (08/17/2024 6:49 AM CDT) Sodium 137 135 - 145 mmol/L Potassium, pl 4.5 3.3 - 4.9 mmol/L [facility] ([place]) Chloride 104 97 - 110 mmol/L [facility] ([place]) CO2 23 22 - 32 mmol/L [facility] ([place]) Anion gap 10 2 - 15 mmol/L [facility] ([place]) BUN 25 6 - 25 mg/dL [facility] ([place]) Creatinine 1.49(H) 0.80 - 1.30 mg/dL [facility] ([place]) Glucose 134 70 - 199 mg/dL [facility] ([place]) Comment: Interpretive Data Fasting glucose >/= 126 mg/dl is diagnostic for diabetes. Fasting is defined as no caloric intake for at least 8 hours. Fasting glucose between 100 mg/dl to 125 mg/dl is diagnostic of prediabetes. In a patient with classic symptoms of hyperglycemia or hyperglycemic crisis, a random glucose >/= 200 mg/dl is diagnostic for diabetes. In the absence of unequivocal hyperglycemia, results should be confirmed by repeat testing. The classification and Diagnosis of Diabetes Diabetes Care 202; 46: S19-S40. Current interpretive data was last revised 2022. Calcium 9.7 8.5 - 10.3 mg/dL [facility] ([place]) Bilirubin, total 0.5 0.1 - 1.2 mg/dL [facility] ([place]) Protein, pl 6.9 6.5 - 8.5 g/dL [facility] ([place]) Albumin 3.8 3.5 - 5.0 g/dL [facility] ([place]) Alk phos 70 40 - 130 Units/L [facility] ([place]) ALT 17 7 - 55 Units/L [facility] ([place]) AST 14 10 - 50 Units/L [facility] ([place]) Blood 08/17/2024 6:49 AM CDT 08/17/2024 6:55 AM CDT us Dhruv Brito MD LAB BLOOD ORDERABLES F inal Result [facility] RE[facility] ([place]) 1 [facility] [place] [employer] [address] * Urine culture Urine, bladder (08/07/2024 3:31 PM CDT) Report Final Report: Less than 100,000 colonies/mL (clinically insignificant growth based on current clinical standards) Comment:Testing performed by : [facility], 1 [facility] [place]., [address] Organism (CLINICALLY INSIGNIFICANT GROWTH [facility] ([place]) Urine, bladder 08/07/2024 3: 31 PM CDT 08/07/2024 6:30 PM CDT Narrative [facility] ANGELES ([place]) - 08/08/2024 11:00 PM CDT Testing performed by [facility] Microbiology Laboratory ([phone]) us Sabino Barros MD LAB MICROBIOLOGY - GEN ERAL ORDERABLES Final Result Performing Organization Address City/[facility]/ZIP Co de Phone Number KEDAR REYNOSO ([place]) 1 [facility] [place] [address] * (ABNORMAL) Urinalysis reflex to microscopic and culture Urine (07/19/2024 7:27 AM CDT) Color, ur [place] Yellow Clarity, ur Cloudy(A) Clear [facility] Specific gravity, ur 1.018 1.003 - 1.030 [facility] pH, urine 6.0 [facility] Comment: Interpretive Data U rine pH is affected by diet, medications, systemic acid-base disturbances, and renal tubular function. pH may affect urinary stone formation. For example, urine pH below 6.0 may help reduce the tendency for calcium phosphate stones and pH greater than 6.0 may reduce the tendency for uric acid stone formation. Source: [employer] Current Interpretive Data was last revised on 2017 Protein, ur ql 2+(A) Negative [facility] Glucose, ur ql Negative Negative [facility] Ketones, ur Negative Negative [facility] Bilirubin, ur Negative Negative [facility] Blood, ur 3+(A) Negative [facility] Urobilinogen, ur <2.0 <2.0 mg/dL [facility] Nitrite, ur Negative Negative [facility] Leukocyte esterase, ur Negative Negative [facility] UA reflex comment Reflex to microscopic UA will be performed. [facility] Urine 07/19/2024 7:27 AM CDT 07/19/2024 7:32 AM CDT Edenilson Saleh MD LAB MICROBIOLOGY - GENERAL ORDERABLES Final Result Performing Organization Address [facility] de Phone Number [facility] Department of [employer] [place] [address] * (ABNORMAL) Urinalysis, microscopic only (07/19/2024 7:27 AM CDT) WBC, ur 21-50(A) 0 - 5 /HPF RBC, ur >50(A) 0 - 2 /HPF [facility] Bacteria, ur 4+(A) [facility] Culture Reflex Comment Reflex to urine culture will be performed. [facility] Urine 07/19/2024 7:27 AM CDT 07/19/2024 7:32 AM CDT Edenilson Saleh MD LAB URINE ORDERA BLES Final Result Performing Organization Address [facility] Co de Phone Number [facility] Department [place] [address] * (ABNORMAL) Urine culture Urine (07/19/2024 7:27 AM CDT) Report Final Report: Greater than or equal to 100,000 colonies/mL of Aerococcus urinae Isolates of Aerococcus urinae are typically susceptible to beta-lactams (including penicillin and cephalosporins), vancomycin, and tetracyclines (including doxycycline), but resistant to trimethoprim-sulf amethoxazole. (.) Organism AEROCOCCUS URINAE [facility] Urine 07/19/2024 7:27 AM CDT 07/19/2024 11:27 AM CDT Narrative [facility] - 07/20/2024 2:55 PM CDT Urine culture reflexed based upon urinalysis results. Testing performed by [facility] Microbiology Laboratory ([phone]) Edenilson Saleh MD LAB MICROBIOLOGY - GENERAL ORDERABLES Final Result [facility] Department [place] [address] * [place] CRITICAL CARE ILL/INJURED PATIENT INIT 30-74 MIN (07/19/2024 5:38 AM CDT) Narrative Edenilson Saleh MD - 07/19/2024 5:38 AM CDT Edenilson Saleh MD 07/19/2024 5:40 AM Critical Care Performed by: Edenilson Saleh MD Authorized by: Edenilson Saleh MD Critical care provider statement: As reflected in the history, physical exam, orders, notes, and/or MDM, I was personally present while the patient was critically ill and provided critical care services for 30 minutes, excluding time involved in separately billable procedures. Critical care was necessary to treat or prevent imminent or life-threatening deterioration of the following condition(s): severe urinary retention Critical care was time spent by me providing the following: continuous telemetry, continuous pulse oximetry, interpretation of bedside monitors, imaging, and arterial/venous lab draws and serial bedside patient exams Critical Care performed by me on 07/19/2024 decision regarding NPO status placement of moctezuma catheter for close monitoring of renal function acute pain control and prepared for emergent procedure/operating room I provided emergent necessary critical care medicine services to this patient. I ordered and reviewed test results and/or imaging studies. I spent time discussing the management of this critically ill patient with consultants and the medical staff. I spent time discussing the management and therapeutic options for this critically ill patient with the patient themselves or with the appropriate designated surrogate decision-maker. I spent time documenting in the medical record. us Edenilson Saleh MD IN CLINIC/BEDSID E ORDERABLES Final Result * CT Abdomen Pelvis W Contrast (07/19/2024 5:29 AM CDT) Anatomical Region Laterality Modality Body N/A Computed Tomogra phy 07/19/2024 5:58 AM CDT Impressions 07/19/2024 9:13 AM CDT Increased size of a mass within the posterior aspect of the bladder near the ureterovesicular junction with stable to slightly worsened moderate to severe right and moderate left hydroureteronephrosis. Dictated by: Em Aviles MD, PhD. The radiology attending physician has personally reviewed this study, and had reviewed and/or edited this written report and agrees with it. Electronically signed by: Jori Fields M.D. Narrative 07/19/2024 9:13 AM CDT EXAMINATION: Computed tomography of the abdomen and pelvis with intravenous contrast HISTORY: 59-year-old male with abdominal pain. History of prostate cancer with bladder involvement post TURP and transurethral bladder tumor resection 12/27/2023 with hematuria and inability to urinate. TECHNIQUE: Transaxial computed tomographic images of the abdomen and pelvis were obtained with intravenous contrast according to the standard protocol after the uneventful administration of 95 mL Opti-Ray 350 intravenous contrast. COMPARISON: Comparison is made to prior CT dated 12/24/2023 and FDG PET/CT 01/21/2024. FINDINGS: There is no pulmonary consolidation, mass, or edema in the lung bases. No pleural effusion or pneumothorax. The imaged heart size is normal. There is no pericardial effusion or pericardial wall thickening. The hepatic parenchyma is normal without focal lesion. There is no intrahepatic or extrahepatic biliary ductal dilation. Cholelithiasis without cholecystitis. The spleen, pancreas, and adrenal glands are unremarkable. The kidneys enhance symmetrically. Bilateral simple renal cysts. Moderate to severe right and moderate left hydronephrosis and hydroureter to the level of the bladder, unchanged. No nephrolithiasis. There is a 4.4 x 3.6 cm mass within the posterior aspect bladder near the ureterovesical junction. The mass expands 3.4 cm in craniocaudal dimension. The urinary bladder is mildly distended. The prostate is surgically absent. There is no suspicious lymphadenopathy in the pelvis. The stomach, duodenum, and small bowel are unremarkable. There is no bowel wall thickening or obstruction. Diverticulosis without diverticulitis. The appendix is normal. No ascites or pneumoperitoneum. No suspicious osseous lesions. Degenerative changes of the spine, worst at L5-S1. The course and caliber of the abdominal aorta and its branching vessels are normal. Procedure Note Jori Fields MD PhD - 07/19/2024 EXAMINATION: Computed tomography of the abdomen and pelvis with intravenous contrast HISTORY: 59-year-old male with abdominal pain. History of prostate cancer with bladder involvement post TURP and transurethral bladder tumor resection 12/27/2023 with hematuria and inability to urinate. TECHNIQUE: Transaxial computed tomographic images of the abdomen and pelvis were obtained with intravenous contrast according to the standard protocol after the uneventful administration of 95 mL Opti-Ray 350 intravenous contrast. COMPARISON: Comparison is made to prior CT dated 12/24/2023 and FDG PET/CT 01/21/2024. FINDINGS: There is no pulmonary consolidation, mass, or edema in the lung bases. No pleural effusion or pneumothorax. The imaged heart size is normal. There is no pericardial effusion or pericardial wall thickening. The hepatic parenchyma is normal without focal lesion. There is no intrahepatic or extrahepatic biliary ductal dilation. Cholelithiasis without cholecystitis. The spleen, pancreas, and adrenal glands are unremarkable. The kidneys enhance symmetrically. Bilateral simple renal cysts. Moderate to severe right and moderate left hydronephrosis and hydroureter to the level of the bladder, unchanged. No nephrolithiasis. There is a 4.4 x 3.6 cm mass within the posterior aspect bladder near the ureterovesical junction. The mass expands 3.4 cm in craniocaudal dimension. The urinary bladder is mildly distended. The prostate is surgically absent. There is no suspicious lymphadenopathy in the pelvis. The stomach, duodenum, and small bowel are unremarkable. There is no bowel wall thickening or obstruction. Diverticulosis without diverticulitis. The appendix is normal. No ascites or pneumoperitoneum. No suspicious osseous lesions. Degenerative changes of the spine, worst at L5-S1. The course and caliber of the abdominal aorta and its branching vessels are normal. IMPRESSION: Increased size of a mass within the posterior aspect of the bladder near the ureterovesicular junction with stable to slightly worsened moderate to severe right and moderate left hydroureteronephrosis. Dictated by: Em Aviles MD, PhD. The radiology attending physician has personally reviewed this study, and had reviewed and/or edited this written report and agrees with it. Electronically signed by: Jori Fields M.D. Edenilson Saleh MD IMG CT PROCEDURE S Final Result * (ABNORMAL) eGFR (07/19/2024 3:49 AM CDT) eGFR 52(L) >=60 mL/min/1. 73 m2 Comment: Interpretive Data Reference Interval Normal >/= 90 mL/min/1.73m2 Mildly decreased* 60 - 89 mL/min/1.73m2 Mildly to moderately decreased 45 - 59 mL/min/1.73m2 Moderately to severely decreased 30 - 44 mL/min/1.73m2 Severely decreased 15 - 29 mL/min/1.73m2 Kidney Failure < 15 mL/min/1.73m2 *Relative to young adult level Estimated glomerular filtration rate is determined by the 2020 CKD-EPI equation recommended by the National Kidney Foundation (A Unifying Approach to GFR Estimation: Recommendations of the NKF-ASK Task Force on Reassessing the Inclusion of Race in Diagnosing Kidney Disease, JASN 202). The CKD-EPI equation should not be used for patients with unstable renal function and has not been validated in children and those over 70. Current interpretive data was last reviewed 2021. Blood 07/19/2024 3:49 AM CDT 07/19/2024 3:57 AM CDT us Edenilson Saleh MD LAB BLOOD ORDERA BLES Final Result [facility]EDAR CHENG [facility] [place] [address] * (ABNORMAL) Differential, auto (07/19/2024 3:49 AM CDT) Neutrophil abs 2.81 1.50 - 6.50 K/cumm Imm gran abs 0.03 0.00 - 0.10 K/cumm [facility] Lymphocyte abs 1.31 0.80 - 3.30 K/cumm [facility] Monocyte abs 0.60 0.20 - 0.80 K/cumm [facility] Eosinophil abs 0.78(H) 0.00 - 0.50 K/cumm [facility] Basophil abs 0.06 0.00 - 0.10 K/cumm [facility] Neutrophil pct 50.3 % [facility] Comment: Interpretive Data Percent cell count reference ranges are not reported, since discordance with absolute values may lead to misinterpretation of CBC data. Current Interpretive Data was last revised on 2017. Imm gran pct 0.5 % [facility] Comment: Interpretive Data Percent cell count reference ranges are not reported, since discordance with absolute values may lead to misinterpretation of CBC data. Current Interpretive Data was last revised on 2017. Lymphocyte pct 23.4 % [facility] Comment: Interpretive Data Percent cell count reference ranges are not reported, since discordance with absolute values may lead to misinterpretation of CBC data. Current Interpretive Data was last revised on 2017. Monocyte pct 10.7 % [facility] Comment: Interpretive Data Percent cell count reference ranges are not reported, since discordance with absolute values may lead to misinterpretation of CBC data. Current Interpretive Data was last revised on 2017. Eosinophil pct 14.0 % [facility] Comment: Interpretive Data Percent cell count reference ranges are not reported, since discordance with absolute values may lead to misinterpretation of CBC data. Current Interpretive Data was last revised on 2017. Basophil pct 1.1 % [facility] Comment: Interpretive Data Percent cell count reference ranges are not reported, since discordance with absolute values may lead to misinterpretation of CBC data. Current Interpretive Data was last revised on 2017. Blood 07/19/2024 3:49 AM CDT 07/19/2024 3:58 AM CDT Edenilson Saleh MD LAB BLOOD ORDERA BLES Final Result Performing Organization Address City/State/[facility] de Phone Number [facility] Department [place] [address] * CBC with auto differential (07/19/2024 3:49 AM CDT) [facility] WBC 5.59 3.80 - 9.90 K/cumm Hgb 15.2 13.0 - 17.5 g/dL [facility] Hct 44.2 38.9 - 50.3 % [facility] Plt 161 150 - 400 K/cumm [facility] MPV 9.7 9.1 - 12.3 fL [facility] RBC 4.99 4.30 - 5.80 M/cumm [facility] MCV 88.6 81.3 - 96.4 fL [facility] MCH 30.5 27.1 - 33.3 pg [facility] MCHC 34.4 32.3 - 35.7 g/dL [facility] RDW CV 13.2 11.1 - 14.9 % [facility] RDW SD 42.3 35.7 - 48.1 fL [facility] NRBC abs 0.00 0.00 - 0.01 K/cumm [facility] Blood 07/19/2024 3:49 AM CDT 07/19/2024 3:58 AM CDT Edenilson Saleh MD LAB BLOOD ORDERA BLES Final Result Performing Organization Address [facility] Co de Phone Number [facility] Department [place] [address] * (ABNORMAL) Comprehensive metabolic panel (07/19/2024 3:49 AM CDT) [facility] Sodium 139 135 - 145 mmol/L Potassium, pl 4.3 3.3 - 4.9 mmol/L [facility] Chloride 106 97 - 110 mmol/L [facility] CO2 22 22 - 32 mmol/L [facility] Anion gap 11 2 - 15 mmol/L [facility] BUN 29(H) 6 - 25 mg/dL [facility] Creatinine 1.53(H) 0.80 - 1.30 mg/dL [facility] Glucose 114 70 - 199 mg/dL [facility] Comment: Interpretive Data Fasting glucose >/= 126 mg/dl is diagnostic for diabetes. Fasting is defined as no caloric intake for at least 8 hours. Fasting glucose between 100 mg/dl to 125 mg/dl is diagnostic of prediabetes. In a patient with classic symptoms of hyperglycemia or hyperglycemic crisis, a random glucose >/= 200 mg/dl is diagnostic for diabetes. In the absence of unequivocal hyperglycemia, results should be confirmed by repeat testing. The classification and Diagnosis of Diabetes Diabetes Care 202; 46: S19-S40. Current interpretive data was last revised 2022. Calcium 10.1 8.5 - 10.3 mg/dL [facility] Bilirubin, total 0.5 0.1 - 1.2 mg/dL [facility] Protein, pl 7.7 6.5 - 8.5 g/dL [facility] Albumin 4.3 3.5 - 5.0 g/dL [facility] Alk phos 75 40 - 130 Units/L [facility] ALT 25 7 - 55 Units/L [facility] AST 19 10 - 50 Units/L [facility] Blood 07/19/2024 3:49 AM CDT 07/19/2024 3:57 AM CDT Edenilson Saleh MD LAB BLOOD ORDERA BLES Final Result Performing Organization Address City/State/[facility] Co de Phone Number [facility] Department [place] [address] from Last 3 Months Insurance [employer] [place] [address] [employer] Advance Directives For more information, please contact: [phone] * Full Code (Latest Code Status on File) Date Activated Date Inactivated Comments 08/29/2020 7:14 AM 08/29/2020 1:09 PM * Full Code Date Activated Date Inactivated Comments 08/29/2020 7:14 AM 08/29/2020 7:14 AM * Full Code Date Activated Date Inactivated Comments 08/15/2020 7:24 AM 08/15/2020 1:21 PM * Full Code Date Activated Date Inactivated Comments 06/15/2020 12:52 AM 06/18/2020 8:28 PM * Full Code Date Activated Date Inactivated Comments 06/14/2020 8:53 PM 06/15/2020 12:52 AM Care Teams Geriatric Nurse Assistant Relationship Specialty Start Date End Date Edenilson Blandon MD [address] [address] PCP - General Family Practice 07/19/24 Dhruv Brito MD [address] [place] [address] [address] [place] [address] Medical Oncologist/District Ranger Medical Oncology 05/28/20
--- OUTSIDE RECORDS SUMMARY | 2024-09-13 18:56 | XMS_ITS | Clinical Summary ---
Author Organization [facility] Address [address] [address] Phone Care Team Providers Care Medical Housekeeper Name Role Phone Edenilson Blandon Primary Care Provider [phone] Allergies No known active allergies Medications lisinopril 40 MG tablet Take 40 mg by mouth in the morning. 04/21/19 24 Active budesonide (PULMICORT) 0.25 MG/2ML nebulizer solution Take 0.25 mg by nebulization if needed 11/07/19 22 Active ferrous gluconate (Iron 27) 240 (27 Fe) MG tablet Take 240 mg by mouth every other day Active Turmeric 500 MG capsule Take 500 mg by mouth 1 (one) time each day Active leuprolide (LUPRON) 11.25 MG injection Inject 11.25 mg into the shoulder, thigh, or buttocks every 3 (three) months Active enzalutamide (Xtandi) 40 MG chemo capsule Take 80 mg by mouth 1 (one) time each day Take with or without food at the same time each day. Do not crush, break, or dissolve. Swallow it whole. Active amLODIPine (NORVASC) 10 MG tablet Take 1 tablet (10 mg total) by mouth 1 (one) time each day 90 tablet 3 04/03/19 25 026 Active aspirin 325 MG EC tablet Take 325 mg by mouth at bed time 025 Discontinued Active Problems Problem Noted Date Diagnosed Date Stage 3a chronic kidney disease 09/28/2023 Hypertensive chronic kidney disease, benign, with chronic kidney disease stage I through stage IV, or unspecified 09/28/2023 Malignant neoplasm of prostate 09/28/2023 Urinary incontinence 09/28/2023 Encounters Date Type Department Care Team Description 08/17/2024 3:15 PM CDT Office Visit [facility] [address] [address] Andres Leigh MD Stage 3a chronic kidney disease (HCC) (Primary Dx); Hypertensive chronic kidney disease, benign, with chronic kidney disease stage I through stage IV, or unspecified; Malignant neoplasm of prostate (HCC); Stress incontinence (female) (male) from Last 3 Months Immunizations Immunization Administration Dates Next Due Influenza, Unspecified 02/27/2020 Family History Medical History Relation Comments Kidney disease Neg Hx Social History Tobacco Use Types Packs/Day Years Used Date Smoking Tobacco: Former Cigarettes Smokeless Tobacco: Never Tobacco Cessation:Counseling Given: Not Answered Alcohol Use Standard Drinks/Week Comments Not Currently 0 (1 standard drink = 0.6 oz pur e alcohol) Sex and Gender Information Value Date Recorded Sex Assigned at Not on file Legal Sex Male 2:07 PM EDT Gender Identity Not on file Sexual Orientation Not on file 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 Not on file Not on file Last Filed Vital Signs Vital Sign Reading Time Taken Comments Blood Pressure 122/70 08/17/2024 3:11 PM CDT Pulse 65 08/17/2024 3:11 PM CDT Temperature - - Respiratory Rate - - Oxygen Saturation - - Inhaled Oxygen Concentration - - Weight 111 kg (244 lb) 08/17/2024 3:11 PM CDT Height 185.4 cm (6' 1) 08/17/2024 3:11 PM CDT Body Mass Index 32.19 08/17/2024 3:11 PM CDT Plan of Treatment Upcoming Encounters Date Type Department Care Team (Late st Contact Info) Description 08/23/2025 3:30 PM CDT Office Visit [facility] [address] [address] Andres Leigh MD [address] [address] Health Maintenance Due Date Last Done Comments Pneumococcal Vaccine: 50+ Ye ars (1 of 2 - PCV) 1983 Colorectal Cancer Screening: Annual FOBT 2013 Colorectal Cancer Screening: Colonoscopy 2013 Colorectal Cancer Screening: Sigmoidoscopy 2013 Influenza Vaccine (Season Ended) 2024 02/27/20 20 Hepatitis B Vaccine Aged Out No longe r eligible based on patient's age to complete this topic Insurance [facility] Care Teams Medical Housekeeper Relationship Specialty Start Date End Date Edenilson Blandon [address] [address] PCP - General Family Medicine 08/17/24
--- OUTSIDE RECORDS SUMMARY | 2024-09-13 18:56 | XMS_ITS | Encounter Summary ---
Author Organization [facility] Address [address] [place] [address] Phone Care Team Providers Care Production Machine Computer Operator Name Role Phone Abdoulaye Landis DO Primary Care Provider [phone] Dhruv Brito MD Unavailable [phone] Fanny Goldman DPT Unavailable [phone] Edenilson Blandon MD Primary Care Provi antionette Encounter Details Date Type Department Care Team (Late st Contact Info) Description 09/11/2020 Telephone [facility] [address] [facility] [address] [place] [address] Elif Clancy., B.A. Social History Tobacco Use Types Packs/Day [...] more drinks on one occasion? Never 08/29/2020 Sex and Gender Information Value Date Recorded Sex Assigned at Not on file Legal Sex Male 9:37 AM INTERNAL COMBUSTION ENGINE ASSEMBLER Gender Identity Not on file Sexual Orientation Straight 08/07/2019 2: 59 PM CDT documented as of this encounter Plan of Treatment Not on file documented as of this encounter Visit Diagnoses Not on filedocumented in this encounter Additional Health Concerns Infection Onset Date Last Indicated Resolved Time COVID: Suspected 03/19/2021 03/19/2021 03/19/2021 2:36 PM INTERNAL COMBUSTION ENGINE ASSEMBLER documented as of this encounter Care Teams Production Machine Computer Operator Relationship Specialty Start Date End Date Abdoulaye Landis DO PCP - General 05/22/16 07/18/24 Edenilson Blandon MD [address] [address] PCP - General Family Practice 07/19/24 Dhruv Brito MD [address] [place] [address] Medical Oncologist/Hat Parts Cutter Machine Medical Oncology 05/28/20 Fanny Goldman DPT [address] [place] [address] Physical Therapist Physical Therapy 03/20/21 07/31/21 documented as of this encounter
--- OUTSIDE RECORDS SUMMARY | 2024-09-13 18:56 | XMS_ITS | Continuity of Care Document ---
Author Organization [facility] Address [address] [place] [address] [address] [place] [address] Phone Care Team Providers Care Vice President Of Operations Name Role Phone Wayne PT,MPT,ATC, Morales Unavailable Unavai lable Procedures Procedure Date Therapeutic Activities Neuromuscular Re-Ed PT Evaluation Low Complexity Therapeutic Activities Neuromuscular Re-Ed Therapeutic Exercise Advance Directives Directive Yes / No Effective Date File Name No Information Encounters Encounter Description Practice Location Reason(s) For Visit Diagnoses Date Provider Providers Copied on Encounter [facility], [address], [id number], tel:[phone] [place] No Information 0 9 [facility]. Referring Provider: Access Direct. [facility] [address] [address], [place], [place], [id number], tel:[phone] [place] No Information Nov-0 9 9 [facility]. Referring Provider: Access Direct. Family History Family Member Type Diagnosis Age At Onset No Information Payers Payer name Insurance type Covered alliance party ID Authoriza ticatalina(s) [facility] CI [id number] Social History Type Description Quantity Date Captured Comments Sex Male Smoking Status No Information Chief Complaint And Reason For Visit No Information Reason For Referral Reason For Referral No Information History Of Present Illness Encounter Date Complaint History Of Prese nt Illness No Information Functional Status Date Functional Assessmen t No Information Instructions Date Instruction Additional Infor mation No Information Assessments Type Assessment Date No Information Patient Care Teams Name Effective Dates (start - stop) Status Members No Information
--- OUTSIDE RECORDS SUMMARY | 2024-09-13 18:56 | XMS_ITS | Encounter Summary ---
Author Organization [facility] Address [address] [place] [address] Phone Care Team Providers Care Educational Aid Name Role Phone Abdoulaye Landis DO Primary Care Provider [phone] Dhruv Brito MD Unavailable [phone] Fanny Goldman DPT Unavailable [phone] Edenilson Blandon MD Primary Care Provi antionette Encounter Details Date Type Department Care Team (Late st Contact Info) Description 01/18/2019 Telephone [facility] Oncology [address] [facility] [address] [place] [address] Ольга Perez, B.A. Social History Tobacco Use Types Packs/Day Years Used Date Smoking Tobacco: Former Cigarettes 1 983 - 1999 Smokeless Tobacco: Never Alcohol Use Standard Drinks/Week Comments Yes 0 (1 standard drink = 0.6 oz pur e alcohol) rare Sex and Gender Information Value Date Recorded Sex Assigned at Not on file Legal Sex Male 9:37 AM WEB FEEDER Gender Identity Not on file Sexual Orientation Straight 08/07/2019 2: 59 PM CDT documented as of this encounter Plan of Treatment Not on file documented as of this encounter Visit Diagnoses Not on filedocumented in this encounter Additional Health Concerns Infection Onset Date Last Indicated Resolved Time COVID: Suspected 06/14/2020 06/14/2020 06/14/2020 8:39 PM CDT COVID: Suspected 03/19/2021 03/19/2021 03/19/2021 2:36 PM WEB FEEDER documented as of this encounter Care Teams Educational Aid Relationship Specialty Start Date End Date Abdoulaye Landis DO PCP - General 05/22/16 07/18/24 Edenilson Blandon MD [address] [address] PCP - General Family Practice 07/19/24 Dhruv Brito MD [address] [place] [address] Medical Oncologist/Channel Opener Outsoles Medical Oncology 05/28/20 Fanny Goldman [facility] [address] [place] [address] Physical Therapist Physical Therapy 03/20/21 07/31/21 documented as of this encounter
--- OUTSIDE RECORDS SUMMARY | 2024-09-13 18:56 | XMS_ITS | Encounter Summary ---
Author Organization [facility] Address [address] [place] [address] Phone Care Team Providers Care Aerodynamics Engineer Name Role Phone Abdoulaye Landis DO Primary Care Provider [phone] Dhruv Brito MD Unavailable [phone] Edenilson Blandon MD Primary Care Provi antionette Encounter Details Date Type Department Care Team (Late st Contact Info) Description 02/03/2024 Telephone [facility] Oncology [address] [facility] [address] [place] [address] lEif Clancy, B.A. Social History Tobacco Use Types Packs/Day [...] making you feel afraid or unsafe? Denies 12/27/2023 Sex and Gender Information Value Date Recorded Sex Assigned at Not on file Legal Sex Male 9:37 AM DEPOSITION REPORTER Gender Identity Not on file Sexual Orientation Straight 08/07/2019 2: 59 PM CDT documented as of this encounter Plan of Treatment Not on file documented as of this encounter Visit Diagnoses Not on filedocumented in this encounter Care Teams Aerodynamics Engineer Relationship Specialty Start Date End Date Abdoulaye Landis DO PCP - General 05/22/16 07/18/24 Edenilson Blandon MD [address] [address] PCP - General Family Practice 07/19/24 Dhruv Brito MD [address] [facility] [address] [place] [address] Medical Oncologist/Child Nutrition Assistant Medical Oncology 05/28/20 documented as of this encounter
--- OUTSIDE RECORDS SUMMARY | 2024-09-13 18:56 | XMS_ITS | Encounter Summary ---
Author Organization [facility] Address [address] [facility] [address] [place] [address] Phone Care Team Providers Care Arranging Funeral Director Name Role Phone Edenilson Blandon Primary Care Provider [phone] Reason for Visit * Reason Comments Med Refill Encounter Details Date Type Department Care Team (Late st Contact Info) Description 04/08/2024 Refill [facility] [address] [facility] [address] [place] [address] Andres Leigh MD [address] [address] Social History Tobacco Use Types Packs/Day Years Used Date Smoking Tobacco: Former Cigarettes Smokeless Tobacco: Never Alcohol Use Standard Drinks/Week Comments Not Currently 0 (1 standard drink = 0.6 oz pur e alcohol) Sex and Gender Information Value Date Recorded Sex Assigned at Not on file Legal Sex Male 2:07 PM EDT Gender Identity Not on file Sexual Orientation Not on file 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
--- OUTSIDE RECORDS SUMMARY | 2024-09-13 18:56 | XMS_ITS | Encounter Summary ---
Author Organization [facility] Address [address] [facility] [address] [place] [address] Phone Care Team Providers Care Malter Operator Name Role Phone Edenilson Blandon Primary Care Provider [phone] Reason for Visit * Reason Comments Med Refill Encounter Details Date Type Department Care Team (Late st Contact Info) Description 02/29/2024 Refill [facility] [address] [facility] [address] [place] [address] Andres Leigh MD [address] [address] Social History Tobacco Use Types [...] 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
--- OUTSIDE RECORDS SUMMARY | 2024-09-13 18:57 | XMS_ITS ---
Author Organization [facility] Address [address] [place] [address] Care Team Providers Care Prep Room Supervisor Name Role Phone Dhruv Brito MD Unavailable [phone] Edenilson Blandon MD Primary Care Provi antionette Active Problems Problem Noted Date Diagnosed Date [...] (09/06/2019): Added automatically from request for surgery [id number] Assessment & Plan (04/05/2020 10:56 PM MIXING MACHINE TENDER): Possibly 2/2 stent needing upsizing vs other obstructive etiology. 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 -Med onc c/s [...] enzalutamide -follows with Dr. Brito -onc c/s Current Treatment and Therapy Plans Enzalutamide PO 28 Day Cycles - Prostate* Plan Start Date:04/15/2020 Plan Provider:Dhruv Brito MD Linked Problems Malignant neoplasm of prosta te (HCC) Treatment Medications Current Day (Day 1, Cycle 6 - Planned for 09/20/2024) enzalutamide (XTANDI) enzalutamide (XTANDI) 40 m g tablet Leuprolide Every 3 Months - Prostate* Plan Start Date:10/17/2019 Plan Provider:Dhruv Brito MD Linked Problems Prostate cancer (HCC) Treatment Medications Current Day (lab d ay, Cycle 21 - Planned for 11/18/2024) Next Day (Day 1, Cycle 22 - Planned for 11/23/2024) enzalutamide (XTANDI)leuprolide (3 month) (ELIGARD)leuprolide (3 month) (LUPRON)leuprolide (ELIGARD) No medications scheduled. leuprolide (3 month) (ELIGARD) subcutaneous injection 22.5 mg Past Treatment and Therapy Plans No past plan information found. Lifetime Dose Tracking * Chemical Lifetime Dose Automatic Entry Manual Entr y Fluoro Time 8.072 minutes 8.072 minutes 0 minutes Air kerma at the reference point (Ka,r) 54.46 mGy 5 4.46 mGy 0 mGy DLP 5,512 mGycm 5,512 mGycm 0 mGycm Resolved Problems Problem Noted Date Diagnosed Date Resolved Date Hematuria 12/13/2023 07/18/2024 Lesion of bladder 04/04/2018 07/18/2024 Overview (04/04/2018): Added automatically from request for surgery [id number] Viral wart 04/12/2012 07/18/2024
--- OUTSIDE RECORDS SUMMARY | 2024-09-13 18:57 | XMS_ITS | Referral Summary ---
Author Organization [facility] Address [address] [place] [address] Care Team Providers Care Roll Finisher Name Role Phone Dhruv Brito MD Unavailable [phone] Edenilson Blandon MD Primary Care Provi antionette Encounters Date Type Department Care Team Description 09/01/2024 9:00 AM CDT Office Visit [facility] [address] [place] [phone] Sabino Barros MD Hematuria, unspecified type (Primary Dx) 08/31/2024 3:30 PM CDT Infusion [facility] at [address] [phone] Prostate cancer (HCC) (Primary Dx) 08/30/2024 Orders Only [facility] On[facility] [address] [place] [address] [address] [place] [address] Chantel Blum, CHRIS Prostate cancer (HCC) (Primary Dx) 08/29/2024 Orders Only [facility] [address] [place] [address] [address] [place] [address] Chantel Blum, RN Malignant neoplasm of prostate (HCC) (Primary Dx); Prostate cancer (HCC) 08/27/2024 Results Follow-Up [facility] [address] [place] [address] [address] [place] [address] Lacie Galvez NP PSA diagnostic 08/24/2024 Orders Only [facility] On[facility] [address] [facility] [address] [place], [place] [phone] Chantel Blum, RN Malignant neoplasm of prostate (HCC) (Primary Dx) 08/23/2024 Orders Only [facility] [address] [facility] [address] [place], [place] [address] Dhruv Brito MD 08/23/2024 Orders Only [facility] On[facility] 10 [facility] [address] [place], [place] [phone] Chantel Blum, CHRIS 08/17/2024 6:40 AM CDT [address] [address] Prostate cancer (HCC) 08/17/2024 6:35 AM CDT [address] [address] 08/07/2024 3:30 PM CDT [address] [address] Urinary tract infection without hematuria, site unspecified 08/07/2024 Orders Only [facility] Surgery [address] [place] [address] Sabino Barros MD Urinary tract infection without hematuria, site unspecified (Primary Dx) 07/21/2024 Orders Only [facility] [address] [place] [phone] Rosi Newberry RN 07/19/2024 Results Follow-Up [facility] [address] [place] [address] Rosi Newberry RN Comprehensive metabolic panel, Urinalysis reflex to microscopic and culture Urine, Differential, auto, Additional followed-up results: 3 07/19/2024 3:10 AM CDT - 07/19/2024 9:04 AM CDT Emergency [facility] [address] [place] [phone] HolthEdenilson zhang MD Thompson, Karima Arrianna, MD Urinary retention (Primary Dx); History of prostate cancer; Chronic renal impairment, unspecified CKD stage; Other hydronephrosis Discharge Disposition: Discharge to home or self care 07/18/2024 2:30 PM CDT Office Visit [facility] Primary Care at [address] [place] [phone] Edenilson Blandon MD Essential hypertension (Primary Dx); Prostate cancer (HCC); Stage 3a chronic kidney disease (HCC); Gross hematuria; Class 1 obesity due to excess calories with serious comorbidity and body mass index (BMI) of 34.0 to 34.9 in adult; Need for tetanus booster 07/17/2024 Telephone [facility] [place] [address] Hyun Duke CMA 07/12/2024 Telephone [facility] [address] [facility] [address] [place] [address] Brittany Bain RN 06/23/2024 Orders Only [facility] [address] [facility] [address] [place] [address] Maureen Bridges CMA Prostate cancer (HCC) (Primary Dx); Malignant neoplasm of prostate (HCC) from Last 3 Months Allergies No known active allergies Medications budesonide [...] (09/06/2019): Added automatically from request for surgery [id number] Assessment & Plan (04/05/2020 10:56 PM RISK CONTROL PRODUCT 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 Bladder appeared normal on renal ultrasound making an obstruction distal to the bladder less likely -s/p b/l stent upsizing 04/05/20 by urology -Monitor Cr Bladder tumor 04/07/2019 Overview (04/07/2019): Added automatically from request for surgery [id number] Prostate cancer 04/04/2018 Overview (04/04/2018): Added automatically from request for surgery [id number] Assessment & Plan (07/18/2024 3:11 PM CDT): Assessment & Plan (04/05/2020 10:56 PM RISK CONTROL PRODUCT LIABILITY DIRECTOR): recurrent, w/ rising PSA. 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 Gender Identity Not on file Sexual Orientation Straight 08/07/2019 2: 59 PM CDT Last Filed Vital Signs Vital Sign Reading [...] 07/18/2024 2:39 PM CDT Plan of Treatment Not on file Medical Devices Explanted Type Area Contract Technical Writer Device Identifier Shelf Expiration Date Model / Serial / Lot [employer] [id number] Universa 6fr 26cm Radiopaque Positioner Braid Tether Low Friction - [id number] - [id number] Implanted:Qty: 1 on 09/14/2019 by Shahzad Dumas MD at [facility] Explanted:Qty: 1 on 12/27/2019 by Shahzad Dumas MD at [facility] Stent Right: Ureter [employer] [id number] 05/08/2022 [id number] / [id number] / [id number] [employer] [id number] Universa 6fr 26cm Radiopaque Positioner Braid Tether Low Friction - [id number] Implanted:Qty: 1 on 09/14/2019 by Shahzad Dumas MD at [facility] Explanted:Qty: 1 on 12/27/2019 by Shahzad Dumas MD at [facility] Stent Left: Ureter [employer] [id number] 05/08/2022 [id number] / / [id number] [employer] [id number] Universa 6fr 26cm Radiopaque Positioner Braid Tether Low Friction - [id number] - [id number] Implanted:Qty: 1 on 12/27/2019 by Shahzad Dumas MD at [facility] Explanted:Qty: 1 on 04/05/2020 at [facility] Stent Right: Ureter [employer] [id number] 10/08/2022 [id number] / [id number] / [id number] [employer] [id number] Universa 6fr 26cm Radiopaque Positioner Braid Tether Low Friction - [id number] - [id number] Implanted:Qty: 1 on 12/27/2019 by Shahzad Dumas MD at [facility] Explanted:Qty: 1 on 04/05/2020 at [facility] Stent Left: Ureter [employer] [id number] 06/27/2021 [id number] / [id number] / [id number] [employer] [id number] Universa 8fr 26cm Radiopaque Positioner Monofilament Tether Firm - [id number] Implanted:Qty: 1 on 04/05/2020 at [facility] Explanted:Qty: 1 on 06/18/2020 by Niharika Deras MD Stent Right: Ureter [employer] [id number] 07/17/2022 [id number] / / [id number] [employer] [id number] Universa 8fr 26cm Radiopaque Positioner Monofilament Tether Firm - [id number] Implanted:Qty: 1 on 04/05/2020 at [facility] Explanted:Qty: 1 on 06/18/2020 by Niharika Deras MD Stent Left: Ureter [employer] [id number] 07/17/2022 [id number] / / [id number] Procedures Procedure Name Priority Date/Time Associated Diagnosis [...] AND CULTURE STAT 07/19/2024 7:27 AM CDT [facility] ILL/INJURED PATIENT INIT 30-74 MIN [...] Number x Urine 09/01/2024 9:08 AM CDT Sabino Barros MD POINT OF CARE TEST [...] ORDERABLES Final Res ult Performing Organization Address City/[facility]/ZIP Co de Phone Number [facility] ([place]) [address] [facility] [place] [address] * (ABNORMAL) eGFR (08/17/2024 6:49 AM CDT) [...] ORDERABLES F inal Result Performing Organization Address City/[facility]/ZIP Co de Phone Number [facility] ([place]) 1 [facility] [place] [address] * (ABNORMAL) Differential, auto (08/17/2024 6:49 AM [...] 2017. Basophil pct 1.2 % [facility] ([place]) Comment: Interpretive Data Percent cell count reference ranges are not reported, since discordance with absolute values may lead to misinterpretation of CBC data. Current Interpretive Data was last revised on 2017. Blood 08/17/2024 6:49 AM CDT 08/17/2024 6:55 AM CDT us Dhruv Brito MD LAB BLOOD ORDERABLES F inal Result [facility] ([place]) 1 [facility] [place] [address] * Differential, auto (08/17/2024 6:49 AM CDT) Neutrophil abs 1.83 1.50 - 6.50 K/cumm Imm gran abs 0.01 0.00 - 0.10 K/cumm [facility] ([place]) Lymphocyte abs 0.85 0.80 - 3.30 K/cumm [facility] ([place]) Monocyte abs 0.42 0.20 - 0.80 K/cumm [facility] ([place]) Eosinophil abs 0.41 0.00 - 0.50 K/cumm [facility] ([place]) Basophil abs 0.04 0.00 - 0.10 K/cumm [facility] ([place]) Neutrophil pct 51.4 % [facility] ([place]) Comment: Interpretive Data Percent cell count reference ranges are not reported, since discordance with absolute values may lead to misinterpretation of CBC data. Current Interpretive Data was last revised on 2017. Imm gran pct 0.3 % [facility] ([place]) Comment: Interpretive Data Percent cell count reference ranges are not reported, since discordance with absolute values may lead to misinterpretation of CBC data. Current Interpretive Data was last revised on 2017. Lymphocyte pct 23.9 % [facility] ([place]) Comment: Interpretive Data Percent cell count reference ranges are not reported, since discordance with absolute values may lead to misinterpretation of CBC data. Current Interpretive Data was last revised on 2017. Monocyte pct 11.8 % [facility] ([place]) Comment: Interpretive Data Percent cell count reference ranges are not reported, since discordance with absolute values may lead to misinterpretation of CBC data. Current Interpretive Data was last revised on 2017. Eosinophil pct 11.5 % [facility] ([place]) Comment: Interpretive Data Percent cell count reference ranges are not reported, since discordance with absolute values may lead to misinterpretation of CBC data. Current Interpretive Data was last revised on 2017. Basophil pct 1.1 % [facility] ([place]) Comment: Interpretive Data Percent cell count reference ranges are not reported, since discordance with absolute values may lead to misinterpretation of CBC data. Current Interpretive Data was last revised on 2017. Blood 08/17/2024 6:49 AM CDT 08/17/2024 6:55 AM CDT Andres Leigh MD LAB BLOOD ORDERABLES Final Res ult Performing Organization Address [facility]/ZIP Co de Phone Number [facility] ([place]) 1 [place] [address] * Iron profile w/ IBC (08/17/2024 6:49 AM CDT) Iron 71 50 - 150 mcg/dL TIBC 281 250 - 400 mcg/dL [facility] ([place]) Transferrin saturation 25 20 - 50 % [facility] ([place]) Blood 08/17/2024 6:49 AM CDT 08/17/2024 6:55 AM CDT Andres Leigh MD LAB BLOOD ORDERABLES Final Res ult Performing Organization Address [facility] Co de Phone Number [facility] ([place]) 1 [facility] [place] [address] * (ABNORMAL) Urinalysis reflex to microscopic and culture Urine (08/17/2024 6:49 AM CDT) Color, ur Straw Yellow Clarity, ur Clear Clear [facility] ([place]) Specific gravity, ur 1.013 1.003 - 1.030 [facility] ([place]) pH, urine 5.5 [facility] ([place]) Comment: Interpretive Data U rine pH is affected by diet, medications, systemic acid-base disturbances, and renal tubular function. pH may affect urinary stone formation. For example, urine pH below 6.0 may help reduce the tendency for calcium phosphate stones and pH greater than 6.0 may reduce the tendency for uric acid stone formation. Source: [facility] Current Interpretive Data was last revised on [...] ERABLES Final Result [facility] ([place]) 1 [facility] [place] [address] * (ABNORMAL) CBC with auto differential (08/17/2024 [...] ORDERABLES F inal Result Performing Organization Address City/State/[facility] Co de Phone Number [facility] ([place]) 1 [facility] [place] [address] * (ABNORMAL) CBC with auto differential (08/17/2024 [...] 92.1 81.3 - 96.4 fL [facility] ([place]) [...] ORDERABLES Final Res ult Performing Organization Address City/[facility] Co de Phone Number [facility] ([place]) 1 [facility] Department [place] [address] * (ABNORMAL) Albumin Creatinine Ratio, Urine (08/17/2024 6:49 AM CDT) Albumin Ur 30.9 mg/L Comment: Interpretive Data No reference range established. Current interpretive data was last revised 2018. Testing performed by: [facility], [address] [place] [address]., [address] Creatinine Ur 61.8 mg/dL [facility] ([place]) Comment: Interpretive Data No reference range established. Current interpretive data was last revised 2018. Testing performed by: [address] [address] Albumin Creatinine Ratio, Ur 50(H) 1 - 29 mg/g [facility] ([place]) Comment:Testing performed by : [address], [address] Urine 08/17/2024 6:49 AM CDT 08/17/2024 9:36 AM CDT Narrative [facility] ([place]) - 08/17/2024 10:34 AM CDT [phone] Andres Leigh MD LAB URINE ORDERABLES Final Res ult Performing Organization Address [facility] Co de Phone Number [facility] ([place] 1 [facility] [place] [address] * (ABNORMAL) Urinalysis, microscopic only (08/17/2024 6:49 AM CDT) WBC, ur 0-5 0 - 5 /HPF RBC, ur >50(A) 0 - 2 /HPF [facility] ([place]) Mucous, ur Present(A) [facility] ([place]) Culture Reflex Comment Reflex conditions for urine culture (WBC >10) not met. [facility] ([place]) Urine 08/17/2024 6:49 AM CDT 08/17/2024 6:56 AM CDT Andres Leigh MD LAB URINE ORDERABLES Final Res ult [facility] ([place]) 1 [facility] [place] [address] * (ABNORMAL) Total testosterone (08/17/2024 6:49 AM CDT) Testosterone <3(L) 193 - 740 ng/dL Comment:Testing performed by : [facility], [address] [place] [address], [address] Blood 08/17/2024 6:49 AM CDT 08/17/2024 9:36 AM CDT Dhruv Brito MD LAB BLOOD ORDERABLES F inal Result Performing Organization Address [facility] Co de Phone Number [facility] ([place]) [address] [facility] [address] * PSA diagnostic (08/17/2024 6:49 AM CDT) [...] 6:49 AM CDT 08/17/2024 6:55 AM CDT Dhruv Brito MD LAB BLOOD ORDERABLES F inal Result Performing Organization Address City/[facility]/ZIP Co de Phone Number [facility] ([place]) [address] [facility] [place] [address] * Ferritin (08/17/2024 6:49 AM CDT) Ferritin 84 30 - 400 ng/mL Blood 08/17/2024 6:49 AM CDT 08/17/2024 6:55 AM CDT us Andres Leigh MD LAB BLOOD ORDERABLES Final Res ult [facility] ([place]) 1 [facility] Department [place] [address] * (ABNORMAL) Renal function panel (08/17/2024 6:49 [...] Final Res ult [facility] ([place]) 1 [facility] [place] [address] * (ABNORMAL) Comprehensive metabolic panel (08/17/2024 6:49 [...] ([place]) AST 14 10 - 50 Units/L [facility] ([place]) Blood 08/17/2024 6:49 AM CDT 08/17/2024 6:55 AM CDT us Dhruv Brito MD LAB BLOOD ORDERABLES F inal Result [facility] ([place]) 1 [facility] [place] [address] * Urine culture Urine, bladder (08/07/2024 3:31 PM CDT) Report Final Report: Less than 100,000 colonies/mL (clinically insignificant growth based on current clinical standards) Comment:Testing performed by : [facility], 1 [place]., [address] Organism (CLINICALLY INSIGNIFICANT GROWTH [facility] ([place]) Urine, bladder 08/07/2024 3: 31 PM CDT 08/07/2024 6:30 PM CDT Narrative [facility] ([place]) - 08/08/2024 11:00 PM CDT Testing performed by [facility] ([phone]) us Sabino Barros MD LAB MICROBIOLOGY - GEN ERAL ORDERABLES Final Result Performing Organization Address City/[facility]/ZIP Co de Phone Number [facility] ([place]) [address] [facility] [place] [address] * (ABNORMAL) Urinalysis reflex to microscopic and culture Urine (07/19/2024 7:27 AM CDT) Color, ur Lash[place] Yellow Clarity, ur Cloudy(A) Clear [facility] Specific gravity, ur 1.018 1.003 - 1.030 [facility] pH, urine 6.0 [facility] Comment: Interpretive Data U rine pH is affected by diet, medications, systemic acid-base disturbances, and renal tubular function. pH may affect urinary stone formation. For example, urine pH below 6.0 may help reduce the tendency for calcium phosphate stones and pH greater than 6.0 may reduce the tendency for uric acid stone formation. Source: [facility] Current Interpretive Data was last revised on 2017 Protein, ur ql 2+(A) Negative [facility] Glucose, ur ql Negative Negative [facility] Ketones, ur Negative Negative [facility] Bilirubin, ur Negative Negative [facility] Blood, ur 3+(A) Negative [facility] Urobilinogen, ur <2.0 <2.0 mg/dL [facility] Nitrite, ur Negative Negative [facility] Leukocyte esterase, ur Negative Negative [facility] UA reflex comment Reflex to microscopic UA will be performed. [facility] Urine 07/19/2024 7:27 AM CDT 07/19/2024 7:32 AM CDT Edenilson Saleh MD LAB MICROBIOLOGY - GENERAL ORDERABLES Final Result Performing Organization Address [facility] de Phone Number [facility] Department [place] [address] * (ABNORMAL) Urinalysis, microscopic only (07/19/2024 7:27 AM CDT) WBC, ur 21-50(A) 0 - 5 /HPF RBC, ur >50(A) 0 - 2 /HPF [facility] Bacteria, ur 4+(A) [facility] Culture Reflex Comment Reflex to urine culture will be performed. [facility] Urine 07/19/2024 7:27 AM CDT 07/19/2024 7:32 AM CDT Edenilson Saleh MD LAB URINE ORDERA BLES Final Result Performing Organization Address [facility] Co de Phone Number [facility] [place] [address] * (ABNORMAL) Urine culture Urine (07/19/2024 7:27 AM CDT) Report Final Report: Greater than or equal to 100,000 colonies/mL of Aerococcus urinae Isolates of Aerococcus urinae are typically susceptible to beta-lactams (including penicillin and cephalosporins), vancomycin, and tetracyclines (including doxycycline), but resistant to trimethoprim-sulf amethoxazole. (.) Organism AEROCOCCUS URINAE [facility] Urine 07/19/2024 7:27 AM CDT 07/19/2024 11:27 AM CDT Narrative [facility] - 07/20/2024 2:55 PM CDT Urine culture reflexed based upon urinalysis results. Testing performed by [facility] ([phone]) Edenilson Saleh MD LAB MICROBIOLOGY - GENERAL ORDERABLES Final Result [facility] Department [place] [address] * ME CRITICAL CARE ILL/INJURED PATIENT INIT 30-74 MIN [...] it. Electronically signed by: Jori Fields M.D. us Edenilson Saleh MD IMG CT PROCEDURE S [...] LAB BLOOD ORDERA BLES Final Result [facility] Department [place] [address] * (ABNORMAL) Differential, auto (07/19/2024 3:49 AM CDT) Neutrophil abs 2.81 1.50 - 6.50 K/cumm Imm gran abs 0.03 0.00 - 0.10 K/cumm [facility] Lymphocyte abs 1.31 0.80 - 3.30 K/cumm [facility] Monocyte abs 0.60 0.20 - 0.80 K/cumm [facility] Eosinophil abs 0.78(H) 0.00 - 0.50 K/cumm [facility] Basophil abs 0.06 0.00 - 0.10 K/cumm [facility] Neutrophil pct 50.3 % [facility] Comment: Interpretive Data Percent cell count reference ranges are not reported, since discordance with absolute values may lead to misinterpretation of CBC data. Current Interpretive Data was last revised on 2017. Imm gran pct 0.5 % [facility] Comment: Interpretive Data Percent cell count reference ranges are not reported, since discordance with absolute values may lead to misinterpretation of CBC data. Current Interpretive Data was last revised on 2017. Lymphocyte pct 23.4 % [facility] Comment: Interpretive Data Percent cell count reference ranges are not reported, since discordance with absolute values may lead to misinterpretation of CBC data. Current Interpretive Data was last revised on 2017. Monocyte pct 10.7 % [facility] Comment: Interpretive Data Percent cell count reference ranges are not reported, since discordance with absolute values may lead to misinterpretation of CBC data. Current Interpretive Data was last revised on 2017. Eosinophil pct 14.0 % [facility] Comment: Interpretive Data Percent cell count reference ranges are not reported, since discordance with absolute values may lead to misinterpretation of CBC data. Current Interpretive Data was last revised on 2017. Basophil pct 1.1 % [facility] Comment: Interpretive Data Percent cell count reference ranges are not reported, since discordance with absolute values may lead to misinterpretation of CBC data. Current Interpretive Data was last revised on 2017. Blood 07/19/2024 3:49 AM CDT 07/19/2024 3:58 AM CDT Edenilson Saleh MD LAB BLOOD ORDERA BLES Final Result [facility] Department [place] [employer] [place] [address] * CBC with auto differential (07/19/2024 3:49 AM CDT) WBC 5.59 3.80 - 9.90 K/cumm Hgb 15.2 13.0 - 17.5 g/dL [facility] Hct 44.2 38.9 - 50.3 % [facility] Plt 161 150 - 400 K/cumm [facility] MPV 9.7 9.1 - 12.3 fL [facility] RBC 4.99 4.30 - 5.80 M/cumm [facility] MCV 88.6 81.3 - 96.4 fL [facility] MCH 30.5 27.1 - 33.3 pg [facility] MCHC 34.4 32.3 - 35.7 g/dL [facility] RDW CV 13.2 11.1 - 14.9 % [facility] RDW SD 42.3 35.7 - 48.1 fL [facility] NRBC abs 0.00 0.00 - 0.01 K/cumm [facility] Blood 07/19/2024 3:49 AM CDT 07/19/2024 3:58 AM CDT Edenilson Saleh MD LAB BLOOD ORDERA BLES Final Result [facility] Department [place] [address] * (ABNORMAL) Comprehensive metabolic panel (07/19/2024 3:49 AM CDT) Sodium 139 135 - 145 mmol/L Potassium, pl 4.3 3.3 - 4.9 mmol/L [facility] Chloride 106 97 - 110 mmol/L [facility] CO2 22 22 - 32 mmol/L [facility] Anion gap 11 2 - 15 mmol/L [facility] BUN 29(H) 6 - 25 mg/dL [facility] Creatinine 1.53(H) 0.80 - 1.30 mg/dL [facility] Glucose 114 70 - 199 mg/dL [facility] Comment: Interpretive Data Fasting glucose >/= 126 [...] 2022. Calcium 10.1 8.5 - 10.3 mg/dL [facility] Bilirubin, total 0.5 0.1 - 1.2 mg/dL [facility] Protein, pl 7.7 6.5 - 8.5 g/dL [facility] Albumin 4.3 3.5 - 5.0 g/dL [facility] Alk phos 75 40 - 130 Units/L [facility] ALT 25 7 - 55 Units/L [facility] AST 19 10 - 50 Units/L [facility] Blood 07/19/2024 3:49 AM CDT 07/19/2024 3:57 AM CDT us Edenilson Saleh MD LAB BLOOD ORDERA BLES Final Result [facility] One [facility] [place] [address] from Last 3 Months Insurance [facility] CHOICE PLUS [facility] CHOICE PLUS [facility] CHOICE PLUS Advance Directives For more information, please contact: [phone] * Full Code (Latest Code Status on [...] 8:53 PM 06/15/2020 12:52 AM Care Teams Roll Finisher Relationship Specialty Start Date End Date Edenilson Blandon MD [address] [address] PCP - General Family Practice 07/19/24 Dhruv Brito MD [address] [place] [address] [address] [place] [address] Medical Oncologist/Industrial Truck Mechanic Medical Oncology 05/28/20
[2024-09-13 19:02] VITALS: BP 159/115; PULSE 91; RESP 20; TEMP 36.2; O2SAT 100
--- NOTE | 2024-09-13 19:32 | PC.NURSE ---
Pt presents to ED c/o urine retention, state he hast urinated since 2pm. 3 way urethral catheter applied w/ cont. bladder irrigation. HX: prostate cancer
--- NOTE | 2024-09-13 20:00 | ED_ITS ---
HPI - Male Genitourinary General Chief complaint: Urogenital-Male <Tara Ott PA-C - Last Filed: 09/14/24 00:08> Stated complaint: urinary blockage <Tara Ott PA-C - Last Filed: 09/14/24 00:08> Time Seen by Provider: 09/13/24 19:19 <Tara Ott PA-C - Last Filed: 09/14/24 00:08> History of Present Illness HPI Narrative: 59 y/o M with a hx of prostate cancer status post radiation in 2011 with salvage radical prostatectomy with positive surgical margins in 2016 with local recurrence in 2019, currently on medical management. Also has a history of bladder carcinoma s/p post transurethral resection in September 2019 with known right ureteral obstruction, pathology demonstrated metastatic prostate adenocarcinoma. Pt presents today for hematuria and urinary retention since this afternoon. Patient states that 2:30 p.m. he urinated bright red blood and has been unable to urinate since. Patient states he noticed clots when urinated earlier this afternoon. Pt reported suprapubic pain but after Bosch catheter placed by nursing staff he states his pain has resolved. He denies dysuria, fever, chills. Pt had a cystoscopy 2 weeks ago which reportedly normal. Le[employer] Senior Specialist is Dr. Andres Leigh, oncologist is with Zully Brito, Urologist is with Dr. Morton at [facility]. <Tara Ott PA-C - Last Filed: 09/14/24 00:08> Related Data Home medications: Home Medications ?Medication ?Instructions ?Recorded ?Confirmed ?Last Taken ?Type enzalutamide 40 mg capsule (Xtandi) 40 mg PO QID 03/29/21 09/14/24 09/13/24 History leuprolide 1 mg/0.2 mL 1 mg subcut [id number] 03/29/21 09/14/24 08/17/24 History subcutaneous solution calcium citrate 250 mg PO DAILY 11/10/22 09/14/24 09/13/24 History iron 18 mg tablet 18 mg PO .qod 11/10/22 09/14/24 09/12/24 History lisinopril 40 mg tablet 40 mg PO DAILY 11/10/22 09/14/24 09/13/24 History amlodipine 10 mg tablet 10 mg PO DAILY 09/14/24 09/14/24 09/13/24 History <Tara Ott PA-C - Last Filed: 09/14/24 00:08> Allergies/Adverse reactions: Allergies Allergy/AdvReac Type Severity Reaction Status Date / Time No Known Allergies Allergy Verified 11/10/22 09:27 <Tara Ott PA-C - Last Filed: 09/14/24 00:08> Review of Systems 2 Review of Systems: All systems reviewed & are unremarkable except as noted in HPI and below <Tara Ott PA-C - Last Filed: 09/14/24 00:08> [facility] Past Medical History Medical History: Medical History Renal insufficiency Baseline creatinine around 1.20. Within the past 1 month, he reports his creatinine to be as high as 2.20. His urologist is believes this may be due to compression of ureters from his prostate cancer. Prostate cancer Diagnosed at the age of 44 initially treated with radiation and hormone therapy. He had a radical prostatectomy 3 years thereafter, and has had several recurrences in and about the bladder which have been resected. Currently on Xtandi. He is followed by a urologist affiliated with [facility], Dr. Dumas <Tara Ott PA-C - Last Filed: 09/14/24 00:08> Surgical History Surgical History: Surgical History History of cystoscopy With resection of bladder tumor reported to be metastatic prostate cancer. History of prostatectomy <Tara Ott PA-C - Last Filed: 09/14/24 00:08> Family History Family History: Family History Father Family history of cardiovascular disease <Tara Ott PA-C - Last Filed: 09/14/24 00:08> Social History Social History: Social History Social History: The patient is lives with his and their 19-year-old daughter in [place]. He is a former smoker and quit in 2000. No alcohol or illicit substance abuse. He designates his , Yolande, as his surrogate decision maker and he wishes to be a full code. Smoking packs per day: 0.5 Smoking cigarettes per day: 10.0 Years smoked: 15 Smoking pack-years: 7.50 Smoking status: Never smoker Alcohol intake: former Drinks per week: 1 Substance use: never Do You Feel Safe in your Home?: Yes Lack of Transportation: No Lack of Food: Never True Current Housing: I Have Housing Concerned About Future Housing: No Difficulty Paying Gas/Electric Bills: No Difficulty Paying for Meds: No Currently Unemployed: No Education: Associate Degree Difficulty w/ Childcare or Family Care: No Spiritual care concerns: No <Tara Ott PA-C - Last Filed: 09/14/24 00:08> Exam 2 Narrative: GENERAL: Well-appearing, well-nourished, and in no acute distress. HEAD: Normocephalic, atraumatic. EYES: EOMI. ENT: Nares clear, no rhinorrhea or epistaxis. Mucous membranes moist. NECK: Supple. CHEST: Clear to auscultation. No respiratory distress. HEART: Regular rate and rhythm. No murmur heard. Normal peripheral pulses. ABDOMEN: Soft, nontender, nondistended, normal active bowel sounds. No CVA tenderness. Three way catheter in place actively draining fruit punch colored urine with clots EXTREMITIES: Normal range of motion. No edema. SKIN: Warm, dry, no rash. NEURO: No focal deficits. Alert and oriented x3 <Tara Ott PA-C - Last Filed: 09/14/24 00:08> Course MANAGER RESPIRATORY CARE/PA Physician Supervision This visit was performed by both a physician and an APC. I performed all aspects of the MDM as documented. <Severo Alford MD - Last Filed: 09/14/24 07:29> Vital Signs Vital signs: Vital Signs Temperature 36.2 C L 09/13/24 19:02 Pulse Rate 91 09/13/24 19:02 Respiratory Rate 20 09/13/24 19:02 Blood Pressure 159/115 H 09/13/24 19:02 Pulse Oximetry 100 09/13/24 19:02 Oxygen Delivery Room Air 09/13/24 19:02 Temperature 35.8 C L 09/14/24 03:48 Pulse Rate 58 L 09/14/24 03:48 Respiratory Rate 17 09/14/24 03:48 Blood Pressure 144/80 H 09/14/24 03:48 Pulse Oximetry 100 09/14/24 03:48 Oxygen Delivery Room Air 09/14/24 03:29 <Tara Ott PA-C - Last Filed: 09/14/24 00:08> Vital Signs Temperature 36.2 C L 09/13/24 19:02 Pulse Rate 91 09/13/24 19:02 Respiratory Rate 20 09/13/24 19:02 Blood Pressure 159/115 H 09/13/24 19:02 Pulse Oximetry 100 09/13/24 19:02 Oxygen Delivery Room Air 09/13/24 19:02 Temperature 35.8 C L 09/14/24 03:48 Pulse Rate 58 L 09/14/24 03:48 Respiratory Rate 17 09/14/24 03:48 Blood Pressure 144/80 H 09/14/24 03:48 Pulse Oximetry 100 09/14/24 03:48 Oxygen Delivery Room Air 09/14/24 03:29 <Severo Alford MD - Last Filed: 09/14/24 07:29> MDM - Male Genitourinary MDM Narrative Medical decision making narrative: 59-year-old male history of prostate and bladder cancer presents to emergency department for episode of gross hematuria 2:30 p.m. today followed by urinary retention. See HPI for further history. Initial triage vitals hypertension. Patient toxic appearing. Nursing staff bladder scan the patient was found have 500 cc of urine in his bladder. A 3 way catheter was placed which showed gross hematuria with clots. CBI initiated. Patient did have immediate improvement in his suprapubic abdominal pain after catheter placed. CBC without leukocytosis or anemia. Chemistries with baseline creatinine function and creatinine of 1.5 and BUN of 32. UA with large amount of hematuria, no UTI. Coags normal. CT abd/pelvis IMPRESSION: Significant bilateral hydroureteronephrosis extending to the bladder which contains rounded hyper attenuating foci along its base, likely blood products/clot. The balloon for the Bosch catheter is distended within the bulbous urethra. The tip of the Bosch catheter extends just into the base of the bladder into the area of blood products/clot . Patient updated on results. His catheter was advanced by nursing staff neck continues to drain well. He did pass several large clots in his urine has lightened in color. Will consult his care team at [facility] and plan for transfer. Discussed with [facility] oncologist, Dr. Hackett, who has no recommendations at this time. Discussed with [facility] urologist, Dr. Matt, who advises double patient stay our hospital and does not feel the patient needs higher level of care at this time. She advises to increase the size of the 3 way catheter to a 22 or 24 catheter into manually irrigate clots. Discussed with our urologist, Dr. Jacobo, who advises against changing size of Bosch catheter given the catheter is draining well. Agrees to admission here and will consult. Discussed with Dr. Crapenter who agrees to admission. <Tara Ott PA-C - Last Filed: 09/14/24 00:08> 59-year-old male history of prostate and bladder cancer presents to emergency department for episode of gross hematuria 2:30 p.m. today followed by urinary retention. See HPI for further history. Initial triage vitals hypertension. Patient toxic appearing. Nursing staff bladder scan the patient was found have 500 cc of urine in his bladder. A 3 way catheter was placed which showed gross hematuria with clots. CBI initiated. Patient did have immediate improvement in his suprapubic abdominal pain after catheter placed. CBC without leukocytosis or anemia. Chemistries with baseline creatinine function and creatinine of 1.5 and BUN of 32. UA with large amount of hematuria, no UTI. Coags normal. CT abd/pelvis IMPRESSION: Significant bilateral hydroureteronephrosis extending to the bladder which contains rounded hyper attenuating foci along its base, likely blood products/clot. The balloon for the Bosch catheter is distended within the bulbous urethra. The tip of the Bosch catheter extends just into the base of the bladder into the area of blood products/clot . Patient updated on results. His catheter was advanced by nursing staff neck continues to drain well. He did pass several large clots in his urine has lightened in color. Will consult his care team at [facility] and plan for transfer. Discussed with [facility] oncologist, Dr. Hackett, who has no recommendations at this time. Discussed with [facility] urologist, Dr. Mtat, who advises double patient stay our hospital and does not feel the patient needs higher level of care at this time. She advises to increase the size of the 3 way catheter to a 22 or 24 catheter into manually irrigate clots. Discussed with our urologist, Dr. Lubin, who advises against changing size of Bosch catheter given the catheter is draining well. Agrees to admission here and will consult. Discussed with Dr. Carpenter who agrees to admission. <Severo Alford MD - Last Filed: 09/14/24 07:29> Medical Records Attestation: I reviewed the patient's medical records. <Severo Alford MD - Last Filed: 09/14/24 07:29> Lab Data Attestation: I reviewed the patient's lab results. <Severo Alford MD - Last Filed: 09/14/24 07:29> Result diagrams: 09/13/24 20:58 09/13/24 20:58 <Tara Ott PA-C - Last Filed: 09/14/24 00:08> Labs: Lab Results 09/13/24 09/13/24 Range/Units 20:04 20:58 WBC 9.6 (4.5-10.0) K/mm3 RBC 4.83 (4.6-6.20) M/mm3 Hgb 15.1 (14.0-18.0) g/dL Hct 44.1 (42.0-52.0) % MCV 91.3 (80-100) fl MCH 31.3 (26-34) pg MCHC 34.2 (32-36) g/dl RDW 13.3 (11.5-14.5) % Plt Count 174 (150-375) k/mm3 MPV 9.8 (7.4-10.4) fl Immature Gran % (Auto) 0.6 H (0-0.5) % Neut % (Auto) 82.7 H (45.5-73.1) % Lymph % (Auto) 8.2 L (18.3-44.2) % [place] % (Auto) 7.1 (2.6-8.5) % Eos % (Auto) 1.0 (0-4.4) % Baso % (Auto) 0.4 (0.2-1.2) % Lymph # (Auto) 0.78 L (0.9-3.2) K/mm3 [place] # (Auto) 0.7 H (0.1-0.6) K/mm3 Eos # (Auto) 0.1 (0-0.3) K/mm3 Baso # (Auto) 0.0 (0.0-0.1) K/mm3 Abs Immat Gran (auto) 0.06 H (0.00-0.031) K/mm3 Absolute Neuts (auto) 7.9 H (1.3-6.7) K/mm3 Absolute Nucleated RBC 0.000 (0.0-0.012) K/mm3 Nucleated RBC % 0.0 (0.0-0.2) % PT 13.5 (11.1-14.7) Seconds INR 1.0 APTT 26.0 (22.3-36.8) Seconds Sodium 136 L (137-145) mmol/L Potassium 4.6 (3.4-5.0) mmol/L Chloride 107 (98-107) mmol/L Carbon Dioxide 19 L (22-30) mmol/L Anion Gap 10 (4-12) mmol/L BUN 32 H D (9-20) mg/dL Creatinine 1.50 H (0.7-1.3) mg/dL Estim Creat Clear Calc 60 ml/min Estimated GFR 48 L (59 - ) Glucose 119 H (65-110) mg/dL Calcium 9.7 (8.4-10.2) mg/dL Total Bilirubin 0.9 (0.2-1.3) mg/dL AST 29 (17-59) U/L ALT 24 (6-50) U/L Alkaline Phosphatase 70 (38-126) U/L Total Protein 7.8 (6.3-8.2) g/dL Albumin 4.4 (3.5-5.1) g/dL Urine Color Light red H (Yellow) Urine Appearance Clear (Clear) Urine pH 6.0 (5.0-9.0) Ur Specific [place] 1.006 (1.001-1.035) Urine Protein Negative (Negative) mg/dL Urine Glucose (UA) Negative (Negative) mg/dL Urine Ketones Negative (Negative) mg/dL Ur Blood (Man) 3+ H (Negative) Urine Nitrate Negative (Negative) Urine Bilirubin Negative (Negative) Urine Urobilinogen 0.2 (<2.0) mg/dL Leukocyte Esterase Rfl Negative (Negative) MELANIA/UL Urine RBC >100 H (0-2) /hpf Urine WBC 0-5 (0-3) /hpf Ur Squamous Epith Cells None seen (Few) /hpf Urine Bacteria None seen /hpf Urine Casts 0-2 <Tara Ott PA-C - Last Filed: 09/14/24 00:08> Lab Results 09/13/24 09/13/24 Range/Units 20:04 20:58 WBC 9.6 (4.5-10.0) K/mm3 RBC 4.83 (4.6-6.20) M/mm3 Hgb 15.1 (14.0-18.0) g/dL Hct 44.1 (42.0-52.0) % MCV 91.3 (80-100) fl MCH 31.3 (26-34) pg MCHC 34.2 (32-36) g/dl RDW 13.3 (11.5-14.5) % Plt Count 174 (150-375) k/mm3 MPV 9.8 (7.4-10.4) fl Immature Gran % (Auto) 0.6 H (0-0.5) % Neut % (Auto) 82.7 H (45.5-73.1) % Lymph % (Auto) 8.2 L (18.3-44.2) % [place] % (Auto) 7.1 (2.6-8.5) % Eos % (Auto) 1.0 (0-4.4) % Baso % (Auto) 0.4 (0.2-1.2) % Lymph # (Auto) 0.78 L (0.9-3.2) K/mm3 [place] # (Auto) 0.7 H (0.1-0.6) K/mm3 Eos # (Auto) 0.1 (0-0.3) K/mm3 Baso # (Auto) 0.0 (0.0-0.1) K/mm3 Abs Immat Gran (auto) 0.06 H (0.00-0.031) K/mm3 Absolute Neuts (auto) 7.9 H (1.3-6.7) K/mm3 Absolute Nucleated RBC 0.000 (0.0-0.012) K/mm3 Nucleated RBC % 0.0 (0.0-0.2) % PT 13.5 (11.1-14.7) Seconds INR 1.0 APTT 26.0 (22.3-36.8) Seconds Sodium 136 L (137-145) mmol/L Potassium 4.6 (3.4-5.0) mmol/L Chloride 107 (98-107) mmol/L Carbon Dioxide 19 L (22-30) mmol/L Anion Gap 10 (4-12) mmol/L BUN 32 H D (9-20) mg/dL Creatinine 1.50 H (0.7-1.3) mg/dL Estim Creat Clear Calc 60 ml/min Estimated GFR 48 L (59 - ) Glucose 119 H (65-110) mg/dL Calcium 9.7 (8.4-10.2) mg/dL Total Bilirubin 0.9 (0.2-1.3) mg/dL AST 29 (17-59) U/L ALT 24 (6-50) U/L Alkaline Phosphatase 70 (38-126) U/L Total Protein 7.8 (6.3-8.2) g/dL Albumin 4.4 (3.5-5.1) g/dL Urine Color Light red H (Yellow) Urine Appearance Clear (Clear) Urine pH 6.0 (5.0-9.0) Ur Specific [place] 1.006 (1.001-1.035) Urine Protein Negative (Negative) mg/dL Urine Glucose (UA) Negative (Negative) mg/dL Urine Ketones Negative (Negative) mg/dL Ur Blood (Man) 3+ H (Negative) Urine Nitrate Negative (Negative) Urine Bilirubin Negative (Negative) Urine Urobilinogen 0.2 (<2.0) mg/dL Leukocyte Esterase Rfl Negative (Negative) MELANIA/UL Urine RBC >100 H (0-2) /hpf Urine WBC 0-5 (0-3) /hpf Ur Squamous Epith Cells None seen (Few) /hpf Urine Bacteria None seen /hpf Urine Casts 0-2 <Severo Alford MD - Last Filed: 09/14/24 07:29> Imaging Data Attestation: I personally reviewed and interpreted this imaging study as follows: < Severo Alford MD - Last Filed: 09/14/24 07:29> My impression: Impressions Abdomen/Pelvis CT 09/13/24 21:16 IMPRESSION: Significant bilateral hydroureteronephrosis extending to the bladder which contains rounded hyper attenuating foci along its base, likely blood products/clot. The balloon for the Bosch catheter is distended within the bulbous urethra. The tip of the Bosch catheter extends just into the base of the bladder into the area of blood products/clot . <Severo Alford MD - Last Filed: 09/14/24 07:29> Discharge Plan Discharge Clinical Impression: Gross hematuria, Hydroureteronephrosis <Tara Ott PA-C - Last Filed: 09/14/24 00:08> Patient Disposition: Still a Patient <Tara Ott PA-C - Last Filed: 09/14/24 00:08> Condition: Stable <Tara Ott PA-C - Last Filed: 09/14/24 00:08>
--- OUTSIDE RECORDS SUMMARY | 2024-09-13 20:08 | XMS_ITS ---
Author Organization [facility] Address [address] [place] [address] Care Team Providers Care Qualitative Field Coordinator Name Role Phone Dhruv Brito MD Unavailable [phone] Edenilson Blandon MD Primary Care Provi antionette [...] (09/06/2019): Added automatically from request for surgery [id number] Assessment & Plan (04/05/2020 10:56 PM TELEPATHIST): Possibly 2/2 stent needing upsizing vs other obstructive etiology. Bladder appeared normal on renal ultrasound making an obstruction distal to the bladder less likely -s/p b/l stent upsizing 04/05/20 by urology -Monitor Cr Bladder tumor 04/07/2019 Overview (04/07/2019): Added automatically from request for surgery [id number] Prostate cancer 04/04/2018 Overview (04/04/2018): Added automatically from request for surgery [id number] Assessment & Plan (07/18/2024 3:11 PM CDT): Assessment & Plan (04/05/2020 10:56 PM TELEPATHIST): recurrent, w/ rising PSA. -Med onc c/s [...] (04/04/2018): Added automatically from request for surgery [id number] Viral wart 04/12/2012 07/18/2024
--- OUTSIDE RECORDS SUMMARY | 2024-09-13 20:08 | XMS_ITS | Encounter Summary ---
Author Organization [facility] Address [address] [place] [address] Phone Care Team Providers Care Dairy Bar Manager Name Role Phone Abdoulaye Landis DO Primary Care Provider [phone] Dhruv Brito MD Unavailable [phone] Edenilson Blandon MD Primary Care Provi antionette Encounter Details Date Type Department Care Team (Late st Contact Info) Description 12/03/2023 Telephone [facility] Oncology [address] [place] [address] Dakota Goff Social History Tobacco [...] on file 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 Gender Identity Not on file Sexual Orientation Straight 08/07/2019 2: 59 PM CDT documented as of this encounter Plan of Treatment Not on file documented as of this encounter Visit Diagnoses Not on filedocumented in this encounter Care Teams Dairy Bar Manager Relationship Specialty Start Date End Date Abdoulaye Landis DO PCP - General 05/22/16 07/18/24 Edenilson Blandon MD [address] [address] PCP - General Family Practice 07/19/24 Dhruv Brito MD [address] [place] [address] [address] [place] [address] Medical Oncologist/Machine Printer Medical Oncology 05/28/20 documented as of this encounter
--- OUTSIDE RECORDS SUMMARY | 2024-09-13 20:08 | XMS_ITS | Encounter Summary ---
Author Organization [facility] Address [address] [place] [address] Phone Care Team Providers Care Cable Television Installer Name Role Phone Edenilson Blandon Primary Care Provider [phone] Reason for Visit * Reason Comments Med Refill Encounter Details Date Type Department Care Team (Late st Contact Info) Description 02/29/2024 Refill [facility] [address] [address] [place] [address] Andres Leigh MD [address] [address] Social History Tobacco Use Types [...] 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
--- OUTSIDE RECORDS SUMMARY | 2024-09-13 20:08 | XMS_ITS | Encounter Summary ---
Author Organization [facility] Address [address] [place] [address] Phone Care Team Providers Care Weave Room Supervisor Name Role Phone Abdoulaye Landis DO Primary Care Provider [phone] Dhruv Brito MD Unavailable [phone] Fanny Goldman DPT Unavailable [phone] Edenilson Blandon MD Primary Care Provi antionette Encounter Details Date Type Department Care Team (Late st Contact Info) Description 09/11/2020 Telephone [facility] [address] [place] [address] Elif Clancy., B.A. 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 Gender Identity Not on file Sexual Orientation Straight 08/07/2019 2: 59 PM CDT documented as of this encounter Plan of Treatment Not on file documented as of this encounter Visit Diagnoses Not on filedocumented in this encounter Additional Health Concerns Infection Onset Date Last Indicated Resolved Time COVID: Suspected 03/19/2021 03/19/2021 03/19/2021 2:36 PM BARK SKINNER documented as of this encounter Care Teams Weave Room Supervisor Relationship Specialty Start Date End Date Abdoulaye Landis DO PCP - General 05/22/16 07/18/24 Edenilson Blandon MD [address] [address] PCP - General Family Practice 07/19/24 Dhruv Brito MD [address] [place] [address] Medical Oncologist/Boat Outboard Engine Mechanic Medical Oncology 05/28/20 Fanny Goldman DPT [address] [place] [address] Physical Therapist Physical Therapy 03/20/21 07/31/21 documented as of this encounter
--- OUTSIDE RECORDS SUMMARY | 2024-09-13 20:08 | XMS_ITS | Continuity of Care Document ---
Author Organization [facility] Address [address] [place] [address] [address] [place] [address] Phone Care Team Providers Care Dramatic Agent Name Role Phone Wayne PT,MPT,ATC, Morales Unavailable Unavai lable Procedures Procedure Date Therapeutic Activities Neuromuscular Re-Ed PT Evaluation Low Complexity Therapeutic Activities Therapeutic Exercise Neuromuscular Re-Ed Advance Directives Directive Yes / No Effective Date File Name No Information Encounters Encounter Description Practice Location Reason(s) For Visit Diagnoses Date Provider Providers Copied on Encounter [facility], [address], [id number], tel:[phone] [place] No Information 0 9 [facility]. Referring Provider: [facility] Direct. [facility] [address] [address], [place], [place], [id number], tel:[phone] [place] No Information Nov-0 9 9 [facility]. Referring Provider: [facility] Direct. Family History Family Member Type Diagnosis Age At Onset No Information Payers Payer name Insurance type Covered republican ID Authoriza ticatalina(s) [facility] [place] CI [id number] Social History Type Description Quantity Date Captured [...]
--- OUTSIDE RECORDS SUMMARY | 2024-09-13 20:08 | XMS_ITS | Clinical Summary ---
Author Organization [facility] Address [address] [facility] [place] [address] Care Team Providers Care Waste Transportation Technician Name Role Phone Dhruv Brito MD Unavailable [phone] Edenilson Blandon MD Primary Care Provi antionette [...] (09/06/2019): Added automatically from request for surgery [id number] Assessment & Plan (04/05/2020 10:56 PM BRIQUETTER OPERATOR): Possibly 2/2 stent needing upsizing vs other obstructive etiology. Bladder appeared normal on renal ultrasound making an obstruction distal to the bladder less likely -s/p b/l stent upsizing 04/05/20 by urology -Monitor Cr Bladder tumor 04/07/2019 Overview (04/07/2019): Added automatically from request for surgery [id number] Prostate cancer 04/04/2018 Overview (04/04/2018): Added automatically from request for surgery [id number] Assessment & Plan (07/18/2024 3:11 PM CDT): Assessment & Plan (04/05/2020 10:56 PM BRIQUETTER OPERATOR): recurrent, w/ rising PSA. -Med onc c/s [...] (04/04/2018): Added automatically from request for surgery [id number] Viral wart 04/12/2012 07/18/2024 Encounters Date Type Department Care Team Description 09/01/2024 9:00 AM CDT Office Visit [facility] [address] [facility] Medical Office Building [address] [place] [address] Sabino Barros MD Hematuria, unspecified type (Primary Dx) 08/31/2024 3:30 PM CDT Infusion [facility] at [address] [address] Prostate cancer (HCC) (Primary Dx) 08/30/2024 Orders Only [address] [place] [phone] Chantel Blum RN Prostate cancer (HCC) (Primary Dx) 08/29/2024 Orders Only [address] [place] [address] Chantel Blum, CHRIS Malignant neoplasm of prostate (HCC) (Primary Dx); Prostate cancer (HCC) 08/27/2024 Results Follow-Up [address] [place] [phone] Lacie Galvez NP PSA diagnostic 08/24/2024 Orders Only [address] [place] [phone] Chantel Blum, CHRIS Malignant neoplasm of prostate (HCC) (Primary Dx) 08/23/2024 Orders Only [address] [place] [address] Dhruv Brito MD 08/23/2024 Orders Only [place] [address] [facility] [address] [place] [address] Chantel Blum RN 08/17/2024 6:40 AM CDT [address] [address] Prostate cancer (HCC) 08/17/2024 6:35 AM CDT [address] [address] 08/07/2024 3:30 PM CDT [address] [address] Urinary tract infection without hematuria, site unspecified 08/07/2024 Orders Only [facility] [address] [place] [phone] Sabino Barros MD Urinary tract infection without hematuria, site unspecified (Primary Dx) 07/21/2024 Orders Only [facility] Emergency Department [address] [place] [phone] Rosi Newberry RN 07/19/2024 3:10 AM CDT - 07/19/2024 9:04 AM CDT Emergency [facility] Emergency Department [address] [place] [address] Edenilson Saleh MD Thompson, Karima Arrianna, MD Urinary retention (Primary Dx); History of prostate cancer; Chronic renal impairment, unspecified CKD stage; Other hydronephrosis Discharge Disposition: Discharge to home or self care 07/19/2024 Results Follow-Up [facility] Emergency Department [address] [place] [address] Rosi Newberry RN Comprehensive metabolic panel, Urinalysis reflex to microscopic and culture Urine, Differential, auto, Additional followed-up results: 3 07/18/2024 2:30 PM CDT Office Visit [facility] at [address] [place] [phone] Edenilson Blandon MD Essential hypertension (Primary Dx); Prostate cancer (HCC); Stage 3a chronic kidney disease (HCC); Gross hematuria; Class 1 obesity due to excess calories with serious comorbidity and body mass index (BMI) of 34.0 to 34.9 in adult; Need for tetanus booster 07/17/2024 Telephone [facility] [address] [place] [address] Hyun Duke CMA 07/12/2024 Telephone [facility] [address] [facility] [address] [place] [phone] Brittany Bain RN 06/23/2024 Orders Only [facility] [address] [facility] [address] [place] [phone] Maureen Bridges CMA Prostate cancer (HCC) (Primary [...] on file Legal Sex Male 9:37 AM BRIQUETTER 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 Gender Identity Not on file Sexual [...] 06/18/1998, 05/21/1998 Medical Devices Explanted Type Area Design Inserter Device Identifier Shelf Expiration Date Model / Serial / Lot [employer] [id number] Universa 6fr 26cm Radiopaque Positioner Braid Tether Low Friction - [id number] - [id number] Implanted:Qty: 1 on 09/14/2019 by Shahzad Dumas MD at [facility] Explanted:Qty: 1 on 12/27/2019 by Shahzad Dumas MD at [facility] Stent Right: Ureter [employer] [id number] 05/08/2022 [id number] / [id number] / [id number] [employer] [id number] Universa 6fr 26cm Radiopaque Positioner Braid Tether Low Friction - [id number] Implanted:Qty: 1 on 09/14/2019 by Shahzad Dumas MD at [facility] Explanted:Qty: 1 on 12/27/2019 by Shahzad Dumas MD at [facility] Stent Left: Ureter [employer] [id number] 05/08/2022 [id number] / / [id number] [employer] [id number] Universa 6fr 26cm Radiopaque Positioner Braid Tether Low Friction - [id number] - [id number] Implanted:Qty: 1 on 12/27/2019 by Shahzad Dumas MD at [facility] Explanted:Qty: 1 on 04/05/2020 at [facility] Stent Right: Ureter [employer] [id number] 10/08/2022 [id number] / [id number] / [id number] [employer] [id number] Universa 6fr 26cm Radiopaque Positioner Braid Tether Low Friction - [id number] - [id number] Implanted:Qty: 1 on 12/27/2019 by Shahzad Dumas MD at [facility] Explanted:Qty: 1 on 04/05/2020 at [facility] Stent Left: Ureter [employer] [id number] 06/27/2021 [id number] / [id number] / [id number] [employer] [id number] Universa 8fr 26cm Radiopaque Positioner Monofilament Tether Firm - [id number] Implanted:Qty: 1 on 04/05/2020 at [facility] Explanted:Qty: 1 on 06/18/2020 by Niharika Deras MD Stent Right: Ureter [employer] [id number] 07/17/2022 [id number] / / [id number] [employer] [id number] Universa 8fr 26cm Radiopaque Positioner Monofilament Tether Firm - [id number] Implanted:Qty: 1 on 04/05/2020 at [facility] Explanted:Qty: 1 on 06/18/2020 by Niharika Deras MD Stent Left: Ureter [employer] [id number] 07/17/2022 [id number] / / [id number] Procedures Procedure Name Priority Date/Time Associated Diagnosis [...] AND CULTURE STAT 07/19/2024 7:27 AM CDT [facility] ILL/INJURED PATIENT INIT 30-74 MIN [...] ORDERABLES Final Res ult Performing Organization Address City/[facility]/ZIP Co de Phone Number [facility] ([place]) 1 [facility] [place] [address] * (ABNORMAL) eGFR (08/17/2024 6:49 AM CDT) [...] ORDERABLES F inal Result Performing Organization Address City/[facility]/ZIP Co de Phone Number [facility]AR [facility] ([place]) 1 [facility] Department [place] [address] * (ABNORMAL) Differential, auto (08/17/2024 6:49 AM [...] Imm gran pct 0.3 % [facility] ([place]) Comment: Interpretive Data Percent cell count reference [...] 2017. Basophil pct 1.2 % [facility] ([place]) Comment: Interpretive Data Percent cell count reference ranges are not reported, since discordance with absolute values may lead to misinterpretation of CBC data. Current Interpretive Data was last revised on 2017. Blood 08/17/2024 6:49 AM CDT 08/17/2024 6:55 AM CDT us Dhruv Brito MD LAB BLOOD ORDERABLES F inal Result [facility] ([place]) 1 [facility] [place] [address] * Differential, auto (08/17/2024 6:49 AM CDT) Neutrophil abs 1.83 1.50 - 6.50 K/cumm Imm gran abs 0.01 0.00 - 0.10 K/cumm [facility] ([place]) Lymphocyte abs 0.85 0.80 - 3.30 K/cumm [facility] ([place]) Monocyte abs 0.42 0.20 - 0.80 K/cumm [facility] ([place]) Eosinophil abs 0.41 0.00 - 0.50 K/cumm [facility] ([place]) Basophil abs 0.04 0.00 - 0.10 K/cumm [facility] ([place]) Neutrophil pct 51.4 % [facility] ([place]) Comment: Interpretive Data Percent cell count reference ranges are not reported, since discordance with absolute values may lead to misinterpretation of CBC data. Current Interpretive Data was last revised on 2017. Imm gran pct 0.3 % [facility] ([place]) Comment: Interpretive Data Percent cell count reference ranges are not reported, since discordance with absolute values may lead to misinterpretation of CBC data. Current Interpretive Data was last revised on 2017. Lymphocyte pct 23.9 % [facility] ([place]) Comment: Interpretive Data Percent cell count reference ranges are not reported, since discordance with absolute values may lead to misinterpretation of CBC data. Current Interpretive Data was last revised on 2017. Monocyte pct 11.8 % [facility] ([place]) Comment: Interpretive Data Percent cell count reference ranges are not reported, since discordance with absolute values may lead to misinterpretation of CBC data. Current Interpretive Data was last revised on 2017. Eosinophil pct 11.5 % [facility] ([place]) Comment: Interpretive Data Percent cell count reference ranges are not reported, since discordance with absolute values may lead to misinterpretation of CBC data. Current Interpretive Data was last revised on 2017. Basophil pct 1.1 % [facility] ([place]) Comment: Interpretive Data Percent cell count reference ranges are not reported, since discordance with absolute values may lead to misinterpretation of CBC data. Current Interpretive Data was last revised on 2017. Blood 08/17/2024 6:49 AM CDT 08/17/2024 6:55 AM CDT Andres Leigh MD LAB BLOOD ORDERABLES Final Res ult Performing Organization Address [facility]/ZIP Co de Phone Number [facility] ([place]) 1 [place] [address] * Iron profile w/ IBC (08/17/2024 6:49 AM CDT) Iron 71 50 - 150 mcg/dL TIBC 281 250 - 400 mcg/dL [facility] ([place]) Transferrin saturation 25 20 - 50 % [facility] ([place]) Blood 08/17/2024 6:49 AM CDT 08/17/2024 6:55 AM CDT Andres Leigh MD LAB BLOOD ORDERABLES Final Res ult Performing Organization Address [facility] Co de Phone Number [facility] ([place]) 1 [place] [address] * (ABNORMAL) Urinalysis reflex to microscopic and culture Urine (08/17/2024 6:49 AM CDT) Color, ur Straw Yellow Clarity, ur Clear Clear [facility] A ([place]) Specific gravity, ur 1.013 1.003 - 1.030 [facility] ([place]) pH, urine 5.5 [facility] ([place]) Comment: Interpretive Data U rine pH is affected by diet, medications, systemic acid-base disturbances, and renal tubular function. pH may affect urinary stone formation. For example, urine pH below 6.0 may help reduce the tendency for calcium phosphate stones and pH greater than 6.0 may reduce the tendency for uric acid stone formation. Source: [facility] [employer] Current Interpretive Data was last revised on [...] ERABLES Final Result [facility] ([place]) 1 [facility] Department [place] [address] * (ABNORMAL) CBC with auto differential (08/17/2024 [...] 91.3 81.3 - 96.4 fL [facility] ([place]) MCH 31.1 27.1 - 33.3 pg [facility]ER [...] F inal Result [facility] ([place]) 1 [facility] Department [place] [address] * (ABNORMAL) CBC with auto differential (08/17/2024 [...] Final Res ult [facility] ([place]) 1 [facility] Department [place] [address] * (ABNORMAL) Albumin Creatinine Ratio, Urine (08/17/2024 6:49 AM CDT) Albumin Ur 30.9 mg/L Comment: Interpretive Data No reference range established. Current interpretive data was last revised 2018. Testing performed by: [facility], [address] [place] [address]., [address] Creatinine Ur 61.8 mg/dL [facility] ([place]) Comment: Interpretive Data No reference range established. Current interpretive data was last revised 2018. Testing performed by: [address] [address] Albumin Creatinine Ratio, Ur 50(H) 1 - 29 mg/g [facility] ([place] Comment:Testing performed by : [facility], [address] [place] [address]., [id number] Urine 08/17/2024 6:49 AM CDT 08/17/2024 9:36 AM CDT Narrative [facility] ([place]) - 08/17/2024 10:34 AM CDT [id number] us Andres Leigh MD LAB URINE ORDERABLES Final Res ult Performing Organization Address City/[facility]/ZIP Co de Phone Number [facility] ([place]) 1 [facility] [employer] [place] [address] * (ABNORMAL) Urinalysis, microscopic only (08/17/2024 6:49 AM CDT) WBC, ur 0-5 0 - 5 /HPF RBC, ur >50(A) 0 - 2 /HPF [facility] ([place]) Mucous, ur Present(A) [facility] ([place]) Culture Reflex Comment Reflex conditions for urine culture (WBC >10) not met. [facility] ([place]) Urine 08/17/2024 6:49 AM CDT 08/17/2024 6:56 AM CDT Andres Leigh MD LAB URINE ORDERABLES Final Res ult Performing Organization Address City/[facility]/ZIP Co de Phone Number [facility] ([place]) 1 [facility] [place] [address] * (ABNORMAL) Total testosterone (08/17/2024 6:49 AM CDT) Testosterone <3(L) 193 - 740 ng/dL Comment:Testing performed by : [facility], [address] [place] [address]., [id number] Blood 08/17/2024 6:49 AM CDT 08/17/2024 9:36 AM CDT Dhruv Brito MD LAB BLOOD ORDERABLES F inal Result [facility] ([place]) 1 [facility] [employer] [place] [address] * PSA diagnostic (08/17/2024 6:49 AM CDT) [...] BLOOD ORDERABLES F inal Result [facility] ([place]) 1 [facility] [employer] [place] [address] * Ferritin (08/17/2024 6:49 AM CDT) Ferritin 84 30 - 400 ng/mL Blood 08/17/2024 6:49 AM CDT 08/17/2024 6:55 AM CDT us Andres Leigh MD LAB BLOOD ORDERABLES Final Res ult Performing Organization Address City/State/[facility] Co de Phone Number [facility] RE[facility]NOS[facility] ([place]) 1 [facility] Department [place] [address] * (ABNORMAL) Renal function panel (08/17/2024 6:49 [...] Final Res ult [facility] RE[facility] ([place]) 1 [facility] Department [place] [address] * (ABNORMAL) Comprehensive metabolic panel (08/17/2024 6:49 [...] MD LAB BLOOD ORDERABLES F inal Result [facility] RE[facility] ([place]) 1 [facility] [place] [address] * Urine culture Urine, bladder (08/07/2024 3:31 PM CDT) Report Final Report: Less than 100,000 colonies/mL (clinically insignificant growth based on current clinical standards) Comment:Testing performed by : [facility], [address] [place]., [address] Organism (CLINICALLY INSIGNIFICANT GROWTH [facility] ([place]) Urine, bladder 08/07/2024 3: 31 PM CDT 08/07/2024 6:30 PM CDT Narrative [facility] ANGELES ([place]) - 08/08/2024 11:00 PM CDT Testing performed by [facility] ([phone]) us Sabino Barros MD LAB MICROBIOLOGY - GEN ERAL ORDERABLES Final Result Performing Organization Address City/[facility]/ZIP Co de Phone Number [facility] ([place]) 1 [facility] [email or web address] [address] * (ABNORMAL) Urinalysis reflex to microscopic and culture Urine (07/19/2024 7:27 AM CDT) Color, ur Lash[place] Yellow Clarity, ur Cloudy(A) Clear [facility] Specific gravity, ur 1.018 1.003 - 1.030 [facility] pH, urine 6.0 [facility] Comment: Interpretive Data U rine pH is affected by diet, medications, systemic acid-base disturbances, and renal tubular function. pH may affect urinary stone formation. For example, urine pH below 6.0 may help reduce the tendency for calcium phosphate stones and pH greater than 6.0 may reduce the tendency for uric acid stone formation. Source: [facility] Current Interpretive Data was last revised on 2017 Protein, ur ql 2+(A) Negative [facility] Glucose, ur ql Negative Negative [facility] Ketones, ur Negative Negative [facility] Bilirubin, ur Negative Negative [facility] Blood, ur 3+(A) Negative [facility] Urobilinogen, ur <2.0 <2.0 mg/dL [facility] Nitrite, ur Negative Negative [facility] Leukocyte esterase, ur Negative Negative [facility] UA reflex comment Reflex to microscopic UA will be performed. [facility] Urine 07/19/2024 7:27 AM CDT 07/19/2024 7:32 AM CDT Edenilson Saleh MD LAB MICROBIOLOGY - GENERAL ORDERABLES Final Result Performing Organization Address [facility] de Phone Number [facility] [place] [address] * (ABNORMAL) Urinalysis, microscopic only (07/19/2024 7:27 AM CDT) WBC, ur 21-50(A) 0 - 5 /HPF RBC, ur >50(A) 0 - 2 /HPF [facility] Bacteria, ur 4+(A) [facility] Culture Reflex Comment Reflex to urine culture will be performed. [facility] Urine 07/19/2024 7:27 AM CDT 07/19/2024 7:32 AM CDT Edenilson Saleh MD LAB URINE ORDERA BLES Final Result Performing Organization Address [facility] Co de Phone Number [facility] Department [place] [address] * (ABNORMAL) Urine culture Urine (07/19/2024 7:27 AM CDT) Report Final Report: Greater than or equal to 100,000 colonies/mL of Aerococcus urinae Isolates of Aerococcus urinae are typically susceptible to beta-lactams (including penicillin and cephalosporins), vancomycin, and tetracyclines (including doxycycline), but resistant to trimethoprim-sulf amethoxazole. (.) Organism AEROCOCCUS URINAE [facility] Urine 07/19/2024 7:27 AM CDT 07/19/2024 11:27 AM CDT Narrative [facility] - 07/20/2024 2:55 PM CDT Urine culture reflexed based upon urinalysis results. Testing performed by [facility] ([phone]) Edenilson Saleh MD LAB MICROBIOLOGY - GENERAL ORDERABLES Final Result [facility] [place] [address] * [place] CRITICAL CARE ILL/INJURED PATIENT INIT 30-74 MIN [...] ORDERA BLES Final Result KEDAR CHENG [facility] [place] [address] * (ABNORMAL) Differential, auto (07/19/2024 3:49 AM CDT) Neutrophil abs 2.81 1.50 - 6.50 K/cumm Imm gran abs 0.03 0.00 - 0.10 K/cumm [facility] Lymphocyte abs 1.31 0.80 - 3.30 K/cumm [facility] Monocyte abs 0.60 0.20 - 0.80 K/cumm [facility] Eosinophil abs 0.78(H) 0.00 - 0.50 K/cumm [facility] Basophil abs 0.06 0.00 - 0.10 K/cumm [facility] Neutrophil pct 50.3 % [facility] Comment: Interpretive Data Percent cell count reference ranges are not reported, since discordance with absolute values may lead to misinterpretation of CBC data. Current Interpretive Data was last revised on 2017. Imm gran pct 0.5 % [facility] Comment: Interpretive Data Percent cell count reference ranges are not reported, since discordance with absolute values may lead to misinterpretation of CBC data. Current Interpretive Data was last revised on 2017. Lymphocyte pct 23.4 % [facility] Comment: Interpretive Data Percent cell count reference ranges are not reported, since discordance with absolute values may lead to misinterpretation of CBC data. Current Interpretive Data was last revised on 2017. Monocyte pct 10.7 % [facility] Comment: Interpretive Data Percent cell count reference ranges are not reported, since discordance with absolute values may lead to misinterpretation of CBC data. Current Interpretive Data was last revised on 2017. Eosinophil pct 14.0 % [facility] Comment: Interpretive Data Percent cell count reference ranges are not reported, since discordance with absolute values may lead to misinterpretation of CBC data. Current Interpretive Data was last revised on 2017. Basophil pct 1.1 % [facility] Comment: Interpretive Data Percent cell count reference ranges are not reported, since discordance with absolute values may lead to misinterpretation of CBC data. Current Interpretive Data was last revised on 2017. Blood 07/19/2024 3:49 AM CDT 07/19/2024 3:58 AM CDT Edenilson Saleh MD LAB BLOOD ORDERA BLES Final Result Performing Organization Address City/State/[facility] de Phone Number [facility] Department [place] [address] * CBC with auto differential (07/19/2024 3:49 AM CDT) [facility] WBC 5.59 3.80 - 9.90 K/cumm Hgb 15.2 13.0 - 17.5 g/dL [facility] Hct 44.2 38.9 - 50.3 % [facility] Plt 161 150 - 400 K/cumm [facility] MPV 9.7 9.1 - 12.3 fL [facility] RBC 4.99 4.30 - 5.80 M/cumm [facility] MCV 88.6 81.3 - 96.4 fL [facility] MCH 30.5 27.1 - 33.3 pg [facility] MCHC 34.4 32.3 - 35.7 g/dL [facility] RDW CV 13.2 11.1 - 14.9 % [facility] RDW SD 42.3 35.7 - 48.1 fL [facility] NRBC abs 0.00 0.00 - 0.01 K/cumm [facility] Blood 07/19/2024 3:49 AM CDT 07/19/2024 3:58 AM CDT Edenilson Saleh MD LAB BLOOD ORDERA BLES Final Result Performing Organization Address [facility] Co de Phone Number [facility] [place] [address] * (ABNORMAL) Comprehensive metabolic panel (07/19/2024 3:49 AM CDT) [facility] Sodium 139 135 - 145 mmol/L Potassium, pl 4.3 3.3 - 4.9 mmol/L [facility] Chloride 106 97 - 110 mmol/L [facility] CO2 22 22 - 32 mmol/L [facility] Anion gap 11 2 - 15 mmol/L [facility] BUN 29(H) 6 - 25 mg/dL [facility] Creatinine 1.53(H) 0.80 - 1.30 mg/dL [facility] Glucose 114 70 - 199 mg/dL [facility] Comment: Interpretive Data Fasting glucose >/= 126 [...] 2022. Calcium 10.1 8.5 - 10.3 mg/dL [facility] Bilirubin, total 0.5 0.1 - 1.2 mg/dL [facility] Protein, pl 7.7 6.5 - 8.5 g/dL [facility] Albumin 4.3 3.5 - 5.0 g/dL [facility] Alk phos 75 40 - 130 Units/L [facility] ALT 25 7 - 55 Units/L [facility] AST 19 10 - 50 Units/L [facility] Blood 07/19/2024 3:49 AM CDT 07/19/2024 3:57 AM CDT Edenilson Saleh MD LAB BLOOD ORDERA BLES Final Result Performing Organization Address City/State/[facility] Co de Phone Number [facility] [place] [address] from Last 3 Months Insurance [facility] [employer] [facility] [facility]/PPO Address: [address] [address] [place] [address] [place] [address] [facility] [employer] [facility]/PPO Address: [address] [address] [place] [address] [facility] [employer] [facility] [facility]/PPO Address: [address] [address] [place] [address] Advance Directives For more information, please contact: [phone] * Full Code (Latest Code Status on [...] 8:53 PM 06/15/2020 12:52 AM Care Teams Waste Transportation Technician Relationship Specialty Start Date End Date Edenilson Blandon MD [address] [address] PCP - General Family Practice 07/19/24 Dhruv Brito MD [address] [place] [address] [address] [place] [address] Medical Oncologist/Jackerman Medical Oncology 05/28/20
--- OUTSIDE RECORDS SUMMARY | 2024-09-13 20:08 | XMS_ITS | Encounter Summary ---
Author Organization [facility] Address [address] [place] [address] Phone Care Team Providers Care Drafting Teacher Name Role Phone Abdoulaye Landis DO Primary Care Provider [phone] Dhruv Brito MD Unavailable [phone] Fanny Goldman DPT Unavailable [phone] Edenilson Blandon MD Primary Care Provi antionette Reason for Visit * Reason Onset Date Comments SCHEDULE UPDATE 05/03/2018 Encounter Details Date Type Department Care Team (Late st Contact Info) Description 05/03/2018 Telephone [facility] Oncology [address] [facility] [address] [place] [id number] Danielle Holden, A SCHEDULE UPDATE Social History Tobacco Use Types Packs/Day Years Used Date Smoking Tobacco: Former Cigarettes 1 983 - 1999 Smokeless Tobacco: Never Sex and Gender Information Value Date Recorded Sex Assigned at Not on file Legal Sex Male 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 Gender Identity Not on file Sexual Orientation Straight 08/07/2019 2: 59 PM CDT documented as of this encounter Plan of Treatment Not on file documented as of this encounter Visit Diagnoses Not on filedocumented in this encounter Additional Health Concerns Infection Onset Date Last Indicated Resolved Time COVID: Suspected 06/14/2020 06/14/2020 06/14/2020 8:39 PM CDT COVID: Suspected 03/19/2021 03/19/202103/19/2021 2:36 PM LOSS PREVENTION OPERATIONS MANAGER documented as of this encounter Care Teams Drafting Teacher Relationship Specialty Start Date End Date Abdoulaye Landis DO PCP - General 05/22/16 07/18/24 Edenilson Blandon MD [address] [address] PCP - General Family Practice 07/19/24 Dhruv Brito MD [address] [place], [place] [id number] Medical Oncologist/Tenter Frame Operator Medical Oncology 05/28/20 Fanny Goldman DPT [address] [place], [place] [id number] Physical Therapist Physical Therapy 03/20/21 07/31/21 documented as of this encounter
--- OUTSIDE RECORDS SUMMARY | 2024-09-13 20:08 | XMS_ITS | Clinical Summary ---
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 Not on file Not [...] Description 08/23/2025 3:30 PM CDT Office Visit [facility] [address] [address] Andres Leigh MD [address] [address] Health Maintenance Due Date Last Done Comments Pneumococcal Vaccine: 50+ Ye ars (1 of 2 - PCV) 1983 Colorectal Cancer Screening: Annual FOBT 2013 Colorectal Cancer Screening: Colonoscopy 2013 Colorectal Cancer Screening: Sigmoidoscopy 2013 Influenza Vaccine (Season Ended) 2024 02/27/20 20 Hepatitis B Vaccine Aged Out No longe r eligible based on patient's age to complete this topic Insurance [facility] Care Teams Beekeeper Relationship Specialty Start Date End Date Edenilson Blandon [address] [address] PCP - General Family Medicine 08/17/24
--- OUTSIDE RECORDS SUMMARY | 2024-09-13 20:08 | XMS_ITS | Encounter Summary ---
Author Organization [facility] Address [address] [place] [address] Phone Care Team Providers Care Executive Director Sheltered Workshop Name Role Phone Edenilson Blandon Primary Care Provider [phone] Reason for Visit * Reason Comments Med Refill Encounter Details Date Type Department Care Team (Late st Contact Info) Description 04/08/2024 Refill [facility] [address] [facility] [address] [place] [address] Andres Leigh MD [address] [address] Social History Tobacco Use Types [...] 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 file Not on file Not on file documented as of this encounter Plan of Treatment Upcoming Encounters Date Type Department Care Team (Late st Contact Info) Description 08/23/2025 3:30 PM CDT Office Visit [facility] [address] [address] Andres Leigh MD [address] [address] documented as of this encounter Visit Diagnoses Not on filedocumented in this encounter Care Teams Executive Director Sheltered Workshop Relationship Specialty Start Date End Date Edenilson Blandon [address] [place] [id number] PCP - General Family Medicine 08/17/24 documented as of this encounter
--- OUTSIDE RECORDS SUMMARY | 2024-09-13 20:08 | XMS_ITS | Encounter Summary ---
Author Organization [facility] Address [address] [place] [address] Phone Care Team Providers Care Arcade Attendant Name Role Phone Abdoulaye Landis DO Primary Care Provider [phone] Dhruv Brito MD Unavailable [phone] Fanny Goldman DPT Unavailable [phone] Edenilson Blandon MD Primary Care Provi antionette Encounter Details Date Type Department Care Team (Late st Contact Info) Description 01/18/2019 Telephone [facility] Oncology [address] [facility] [address] [place] [address] Ольга Perez, B.A. 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 Gender Identity Not on file Sexual Orientation Straight 08/07/2019 2: 59 PM CDT documented as of this encounter Plan of Treatment Not on file documented as of this encounter Visit Diagnoses Not on filedocumented in this encounter Additional Health Concerns Infection Onset Date Last Indicated Resolved Time COVID: Suspected 06/14/2020 06/14/2020 06/14/2020 8:39 PM CDT COVID: Suspected 03/19/2021 03/19/2021 03/19/2021 2:36 PM FULLER BRUSH WORKER documented as of this encounter Care Teams Arcade Attendant Relationship Specialty Start Date End Date Abdoulaye Landis DO PCP - General 05/22/16 07/18/24 Edenilson Blandon MD [address] [address] PCP - General Family Practice 07/19/24 Dhruv Brito MD [address] [place] [address] Medical Oncologist/Manufacturing Tech Medical Oncology 05/28/20 Fanny Goldman DPT [employer] [facility] [address] [place] [address] Physical Therapist Physical Therapy 03/20/21 07/31/21 documented as of this encounter
--- OUTSIDE RECORDS SUMMARY | 2024-09-13 20:08 | XMS_ITS | Encounter Summary ---
Author Organization [facility] Address [address] [place] [address] Phone Care Team Providers Care Food Manager Name Role Phone Abdoulaye Landis DO Primary Care Provider [phone] Dhruv Brito MD Unavailable [phone] Edenilson Blandno MD Primary Care Provi antionette Encounter Details Date Type Department Care Team (Late st Contact Info) Description 02/03/2024 Telephone [facility] Oncology 10 [facility] [address] [place] [address] Elif Clancy, B.A. 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 Gender Identity Not on file Sexual Orientation Straight 08/07/2019 2: 59 PM CDT documented as of this encounter Plan of Treatment Not on file documented as of this encounter Visit Diagnoses Not on filedocumented in this encounter Care Teams Food Manager Relationship Specialty Start Date End Date Abdoulaye Landis DO PCP - General 05/22/16 07/18/24 Edenilson Blandon MD [address] [address] PCP - General Family Practice 07/19/24 Dhruv Brito MD [address] [facility] [address] [place] [address] Medical Oncologist/Presales Senior Specialist Medical Oncology 05/28/20 documented as of this encounter
--- OUTSIDE RECORDS SUMMARY | 2024-09-13 20:08 | XMS_ITS | Encounter Summary ---
Author Organization [facility] Address [address] [place] [address] Phone Care Team Providers Care Head Of Data Name Role Phone Abdoulaye Landis DO Primary Care Provider [phone] Dhruv Brito MD Unavailable [phone] Fanny Goldman DPT Unavailable [phone] Edenilson Blandon MD Primary Care Provi antionette Encounter Details Date Type Department Care Team (Late st Contact Info) Description 01/18/2019 Telephone [facility] Oncology 10 [facility] [address] [place] [phone] Ольга Perez, B.A. Social History Tobacco Use Types Packs/Day Years Used Date Smoking Tobacco: Former Cigarettes 1 983 - 1999 Smokeless Tobacco: Never Alcohol Use Standard Drinks/Week Comments Yes 0 (1 standard drink = 0.6 oz pur e alcohol) rare Sex and Gender Information Value Date Recorded Sex Assigned at Not on file Legal Sex Male 9:37 AM PARALEGALS Gender Identity Not on file Sexual Orientation Straight 08/07/2019 2: 59 PM CDT documented as of this encounter Plan of Treatment Not on file documented as of this encounter Visit Diagnoses Not on filedocumented in this encounter Additional Health Concerns Infection Onset Date Last Indicated Resolved Time COVID: Suspected 06/14/2020 06/14/2020 06/14/2020 8:39 PM CDT COVID: Suspected 03/19/2021 03/19/2021 03/19/2021 2:36 PM PARALEGALS documented as of this encounter Care Teams Head Of Data Relationship Specialty Start Date End Date Abdoulaye Landis DO PCP - General 05/22/16 07/18/24 Edenilson Blandon MD [address] [address] PCP - General Family Practice 07/19/24 Dhruv Brito MD [address] [place] [address] Medical Oncologist/President And Chief Commercial Officer Medical Oncology 05/28/20 Fanny Goldman [facility] [address] [place] [address] Physical Therapist Physical Therapy 03/20/21 07/31/21 documented as of this encounter
--- OUTSIDE RECORDS SUMMARY | 2024-09-13 20:08 | XMS_ITS | Encounter Summary ---
Author Organization [facility] Address [address] [place] [address] Phone Care Team Providers Care Small Package And Bundle Sorter Clerk Name Role Phone Abdoulaye Landis DO Primary Care Provider [phone] Dhruv Brito MD Unavailable [phone] Fanny Goldman DPT Unavailable [phone] Edenilson Blandon MD Primary Care Provi antionette Encounter Details Date Type Department Care Team (Late st Contact Info) Description 05/24/2019 Telephone [facility] Oncology [address] [facility] [address] [place] [address] Nubia Malin, MARBLEIZER Social History Tobacco Use Types Packs/Day Years Used Date Smoking Tobacco: Former Cigarettes 0.5 18 1 983 - 2001 Smokeless Tobacco: Never Alcohol Use Standard Drinks/Week Comments Yes 2 (1 standard drink = 0.6 oz pur e alcohol) Sex and Gender Information Value Date Recorded Sex Assigned at Not on file 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 Gender Identity Not on file Sexual Orientation Straight 08/07/2019 2: 59 PM CDT documented as of this encounter Plan of Treatment Not on file documented as of this encounter Visit Diagnoses Not on filedocumented in this encounter Additional Health Concerns Infection Onset Date Last Indicated Resolved Time COVID: Suspected 06/14/2020 06/14/2020 06/14/2020 8:39 PM CDT COVID: Suspected 03/19/2021 03/19/2021 03/19/2021 2:36 PM BUSINESS OFFICE TECHNICIAN documented as of this encounter Care Teams Small Package And Bundle Sorter Clerk Relationship Specialty Start Date End Date Abdoulaye Landis DO PCP - General 05/22/16 07/18/24 Edenilson Blandon MD [address] [address] PCP - General Family Practice 07/19/24 Dhruv Brito MD [address] [place] [address] Medical Oncologist/Ceramic Design Engineer Medical Oncology 05/28/20 Fanny Goldman DPT [address] [place] [address] Physical Therapist Physical Therapy 03/20/21 07/31/21 documented as of this encounter
--- OUTSIDE RECORDS SUMMARY | 2024-09-13 20:08 | XMS_ITS | Clinical Summary ---
Author Organization [facility] Care Team Providers Care Trainmaster Name Role Phone Unavailable Primary Care Provider Unavailabl e Social History Tobacco Use Types Packs/Day Years Used Date Smoking Tobacco: Never Assessed Sex and Gender Information Value Date Recorded Sex Assigned at Not on file Legal Sex Male 10:[address] Gender Identity Not on file Sexual Orientation [...]
--- OUTSIDE RECORDS SUMMARY | 2024-09-13 20:08 | XMS_ITS | Referral Summary ---
Author Organization [facility] Address [address] [place] [address] Care Team Providers Care Conservation Policy Analyst Name Role Phone Dhruv Brito MD Unavailable [phone] Edenilson Blandon MD Primary Care Provi antionette Encounters Date Type Department Care Team Description 09/01/2024 9:00 AM CDT Office Visit [facility] Urology [address] [facility] Medical Office Building [address] [place] [phone] Sabino Barros MD Hematuria, unspecified type (Primary Dx) 08/31/2024 3:30 PM CDT Infusion [facility] at [address] [phone] Prostate cancer (HCC) (Primary Dx) 08/30/2024 Orders Only [facility] Oncology [address] [place] [address] [address] [place] [address] Chantel Blum, CHRIS Prostate cancer (HCC) (Primary Dx) 08/29/2024 Orders Only [facility] Oncology [address] [place] [address] [address] [place] [address] Chantel Blum, RN Malignant neoplasm of prostate (HCC) (Primary Dx); Prostate cancer (HCC) 08/27/2024 Results Follow-Up [facility] Oncology [address] [place] [address] [address] [place] [address] Lacie Galvez NP PSA diagnostic 08/24/2024 Orders Only [facility] Oncology [address] [facility] [address] [place], [place] [phone] Chantel Blum, RN Malignant neoplasm of prostate (HCC) (Primary Dx) 08/23/2024 Orders Only [facility] Oncology [address] [facility] [address] [place], [place] [phone] Dhruv Brito MD 08/23/2024 Orders Only [facility] Oncology 10 [facility] [address] [place], [place] [phone] Chantel Blum, CHRIS 08/17/2024 6:40 AM CDT [address] [address] Prostate cancer (HCC) 08/17/2024 6:35 AM CDT [address] [address] 08/07/2024 3:30 PM CDT [address] [address] Urinary tract infection without hematuria, site unspecified 08/07/2024 Orders Only [facility] Surgery [address] [place] [address] Sabino Barros MD Urinary tract infection without hematuria, site unspecified (Primary Dx) 07/21/2024 Orders Only [facility] Emergency Department [address] [place] [phone] Rosi Newberry RN 07/19/2024 Results Follow-Up [facility] Emergency Department 1 [place] [address] Rosi Newberry RN Comprehensive metabolic panel, Urinalysis reflex to microscopic and culture Urine, Differential, auto, Additional followed-up results: 3 07/19/2024 3:10 AM CDT - 07/19/2024 9:04 AM CDT Emergency [facility] Emergency Department [address] [place] [phone] HolthEdenilson zhang MD Thompson, Karima Arrianna, MD Urinary retention (Primary Dx); History of prostate cancer; Chronic renal impairment, unspecified CKD stage; Other hydronephrosis Discharge Disposition: Discharge to home or self care 07/18/2024 2:30 PM CDT Office Visit [facility] Primary Care at [address] [place] [phone] Edenilson Blandon MD Essential hypertension (Primary Dx); Prostate cancer (HCC); Stage 3a chronic kidney disease (HCC); Gross hematuria; Class 1 obesity due to excess calories with serious comorbidity and body mass index (BMI) of 34.0 to 34.9 in adult; Need for tetanus booster 07/17/2024 Telephone [facility] Surgery [facility] [place] [address] Hyun Duke CMA 07/12/2024 Telephone [facility] Oncology 10 [facility] [address] [place] [address] Brittany Bain RN 06/23/2024 Orders Only [facility] Oncology 10 [facility] [address] [place] [address] Maureen Bridges CMA Prostate cancer (HCC) (Primary [...] (09/06/2019): Added automatically from request for surgery [id number] Assessment & Plan (04/05/2020 10:56 PM STEEL HEATER): Possibly 2/2 stent needing upsizing vs other obstructive etiology. Bladder appeared normal on renal ultrasound making an obstruction distal to the bladder less likely -s/p b/l stent upsizing 04/05/20 by urology -Monitor Cr Bladder tumor 04/07/2019 Overview (04/07/2019): Added automatically from request for surgery [id number] Prostate cancer 04/04/2018 Overview (04/04/2018): Added automatically from request for surgery [id number] Assessment & Plan (07/18/2024 3:11 PM CDT): Assessment & Plan (04/05/2020 10:56 PM STEEL HEATER): recurrent, w/ rising PSA. -Med onc c/s [...] (04/04/2018): Added automatically from request for surgery [id number] Viral wart 04/12/2012 07/18/2024 Immunizations Immunization Administration [...] on file Legal Sex Male 9:37 AM STEEL HEATER Gender Identity Not on file Sexual Orientation [...] on file Medical Devices Explanted Type Area Waist Fitter Device Identifier Shelf Expiration Date Model / Serial / Lot [employer] [id number] Universa 6fr 26cm Radiopaque Positioner Braid Tether Low Friction - [id number] - [id number] Implanted:Qty: 1 on 09/14/2019 by Shahzad Dumas MD at [facility] Explanted:Qty: 1 on 12/27/2019 by Shahzad Dumas MD at [facility] Stent Right: Ureter [employer] [id number] 05/08/2022 [id number] / [id number] / [id number] [employer] [id number] Universa 6fr 26cm Radiopaque Positioner Braid Tether Low Friction - [id number] Implanted:Qty: 1 on 09/14/2019 by Shahzad Dumas MD at [facility] Explanted:Qty: 1 on 12/27/2019 by Shahzad Dumas MD at [facility] Stent Left: Ureter [employer] [id number] 05/08/2022 [id number] / / [id number] [employer] [id number] Universa 6fr 26cm Radiopaque Positioner Braid Tether Low Friction - [id number] - [id number] Implanted:Qty: 1 on 12/27/2019 by Shahzad Dumas MD at [facility] Explanted:Qty: 1 on 04/05/2020 at [facility] Stent Right: Ureter [employer] [id number] 10/08/2022 [id number] / [id number] / [id number] [employer] [id number] Universa 6fr 26cm Radiopaque Positioner Braid Tether Low Friction - [id number] - [id number] Implanted:Qty: 1 on 12/27/2019 by Shahzad Dumas MD at [facility] Explanted:Qty: 1 on 04/05/2020 at [facility] Stent Left: Ureter [employer] [id number] 06/27/2021 [id number] / [id number] / [id number] [employer] [id number] Universa 8fr 26cm Radiopaque Positioner Monofilament Tether Firm - [id number] Implanted:Qty: 1 on 04/05/2020 at [facility] Explanted:Qty: 1 on 06/18/2020 by Niharika Deras MD Stent Right: Ureter [employer] [id number] 07/17/2022 [id number] / / [id number] [employer] [id number] Universa 8fr 26cm Radiopaque Positioner Monofilament Tether Firm - [id number] Implanted:Qty: 1 on 04/05/2020 at [facility] Explanted:Qty: 1 on 06/18/2020 by Niharika Deras MD Stent Left: Ureter [employer] [id number] 07/17/2022 [id number] / / [id number] Procedures Procedure Name Priority Date/Time Associated Diagnosis [...] AND CULTURE STAT 07/19/2024 7:27 AM CDT NE CRITICAL CARE ILL/INJURED PATIENT INIT 30-74 MIN [...] ORDERABLES Final Res ult Performing Organization Address City/[facility]/ZIP Co de Phone Number [facility] ([place]) 1 [facility] [place] [address] * (ABNORMAL) eGFR (08/17/2024 6:49 AM CDT) [...] ORDERABLES F inal Result Performing Organization Address City/[facility]/ZIP Co de Phone Number [facility] ([place]) 1 [facility] [employer] [place] [address] * (ABNORMAL) Differential, auto (08/17/2024 6:49 AM [...] BLOOD ORDERABLES F inal Result [facility] ([place]) 1 [facility] [place] [address] * Differential, auto (08/17/2024 6:49 AM CDT) Neutrophil abs 1.83 1.50 - 6.50 K/cumm Imm gran abs 0.01 0.00 - 0.10 K/cumm [facility] ([place]) Lymphocyte abs 0.85 0.80 - 3.30 K/cumm [facility] ([place]) Monocyte abs 0.42 0.20 - 0.80 K/cumm [facility] ([place]) Eosinophil abs 0.41 0.00 - 0.50 K/cumm [facility] ([place]) Basophil abs 0.04 0.00 - 0.10 K/cumm [facility] ([place]) Neutrophil pct 51.4 % [facility] ([place]) Comment: Interpretive Data Percent cell count reference ranges are not reported, since discordance with absolute values may lead to misinterpretation of CBC data. Current Interpretive Data was last revised on 2017. Imm gran pct 0.3 % [facility] ([place]) Comment: Interpretive Data Percent cell count reference [...] on 2017. Basophil pct 1.1 % [facility] ([place]) Comment: Interpretive Data Percent cell count reference ranges are not reported, since discordance with absolute values may lead to misinterpretation of CBC data. Current Interpretive Data was last revised on 2017. Blood 08/17/2024 6:49 AM CDT 08/17/2024 6:55 AM CDT Andres Leigh MD LAB BLOOD ORDERABLES Final Res ult Performing Organization Address [facility]/ZIP Co de Phone Number [facility] ([place]) 1 [place] [address] * Iron profile w/ IBC (08/17/2024 6:49 AM CDT) Iron 71 50 - 150 mcg/dL TIBC 281 250 - 400 mcg/dL [facility] ([place]) Transferrin saturation 25 20 - 50 % [facility] ([place]) Blood 08/17/2024 6:49 AM CDT 08/17/2024 6:55 AM CDT Andres Leigh MD LAB BLOOD ORDERABLES Final Res ult Performing Organization Address [facility]/[place] Co de Phone Number [facility] ([place]) 1 [facility] [place] [address] * (ABNORMAL) Urinalysis reflex to microscopic and culture Urine (08/17/2024 6:49 AM CDT) Color, ur Straw Yellow Clarity, ur Clear Clear [facility] ([place]) Specific gravity, ur 1.013 1.003 - 1.030 [facility] ([place]) pH, urine 5.5 [facility] ([place]) Comment: Interpretive Data U rine pH is affected by diet, medications, systemic acid-base disturbances, and renal tubular function. pH may affect urinary stone formation. For example, urine pH below 6.0 may help reduce the tendency for calcium phosphate stones and pH greater than 6.0 may reduce the tendency for uric acid stone formation. Source: [facility] Current Interpretive Data was last [...] ERABLES Final Result [facility] ([place]) 1 [facility] [place] [address] * (ABNORMAL) CBC with auto differential (08/17/2024 [...] ORDERABLES F inal Result Performing Organization Address City/State/[place] Co de Phone Number [facility] ([place]) 1 [facility] [place] [address] * (ABNORMAL) CBC with auto differential (08/17/2024 [...] ORDERABLES Final Res ult Performing Organization Address City/[facility]/[place] Co de Phone Number [facility] ([place]) 1 [facility] [place] [address] * (ABNORMAL) Albumin Creatinine Ratio, Urine (08/17/2024 6:49 AM CDT) Albumin Ur 30.9 mg/L Comment: Interpretive Data No reference range established. Current interpretive data was last revised 2018. Testing performed by: [facility], [address] [place] [address]., [id number] Creatinine Ur 61.8 mg/dL [facility] ([place]) Comment: Interpretive Data No reference range established. Current interpretive data was last revised 2018. Testing performed by: [address] [address] Albumin Creatinine Ratio, Ur 50(H) 1 - 29 mg/g [facility] ([place]) Comment:Testing performed by : [address], [address] Urine 08/17/2024 6:49 AM CDT 08/17/2024 9:36 AM CDT Narrative [facility] ([place]) - 08/17/2024 10:34 AM CDT [phone] Andres Leigh MD LAB URINE ORDERABLES Final Res ult Performing Organization Address [facility]/[place] Co de Phone Number [facility] ([place]) 1 [facility] [place] [address] * (ABNORMAL) Urinalysis, microscopic only (08/17/2024 6:49 AM CDT) WBC, ur 0-5 0 - 5 /HPF RBC, ur >50(A) 0 - 2 /HPF [facility] ([place]) Mucous, ur Present(A) [facility] ([place]) Culture Reflex Comment Reflex conditions for urine culture (WBC >10) not met. [facility] ([place]) Urine 08/17/2024 6:49 AM CDT 08/17/2024 6:56 AM CDT Andres Leigh MD LAB URINE ORDERABLES Final Res ult [facility] ([place]) 1 [facility] [employer] [place] [place] [address] * (ABNORMAL) Total testosterone (08/17/2024 6:49 AM CDT) Testosterone <3(L) 193 - 740 ng/dL Comment:Testing performed by : [facility], [address] [place] [address], [address] Blood 08/17/2024 6:49 AM CDT 08/17/2024 9:36 AM CDT Dhruv Brito MD LAB BLOOD ORDERABLES F inal Result Performing Organization Address [facility]/[place] Co de Phone Number [facility] ([place]) 1 [facility] [place] [address] * PSA diagnostic (08/17/2024 6:49 AM CDT) [...] ORDERABLES F inal Result Performing Organization Address City/[facility]/ZIP Co de Phone Number [facility] ([place]) 1 [facility] [place] [address] * Ferritin (08/17/2024 6:49 AM CDT) Ferritin 84 30 - 400 ng/mL Blood 08/17/2024 6:49 AM CDT 08/17/2024 6:55 AM CDT us Andres Leigh MD LAB BLOOD ORDERABLES Final Res ult [facility] ([place]) 1 [facility] [place] [address] * (ABNORMAL) Renal function panel (08/17/2024 6:49 [...] Final Res ult [facility] ([place]) 1 [facility] [place] [address] * (ABNORMAL) Comprehensive metabolic panel (08/17/2024 6:49 [...] BLOOD ORDERABLES F inal Result [facility] ([place]) 1 [facility] [place] [address] * Urine culture Urine, bladder (08/07/2024 3:31 PM CDT) Report Final Report: Less than 100,000 colonies/mL (clinically insignificant growth based on current clinical standards) Comment:Testing performed by : [facility], 1 [facility] [place] [address] Organism (CLINICALLY INSIGNIFICANT GROWTH [facility] ([place]) Urine, bladder 08/07/2024 3: 31 PM CDT 08/07/2024 6:30 PM CDT Narrative [facility] ([place]) - 08/08/2024 11:00 PM CDT Testing performed by [facility] Microbiology Laboratory ([phone]) us Sabino Barros MD LAB MICROBIOLOGY - GEN ERAL ORDERABLES Final Result Performing Organization Address City/[facility]/ZIP Co de Phone Number [facility] ([place]) 1 [facility] [place] [address] * (ABNORMAL) Urinalysis reflex to microscopic and culture Urine (07/19/2024 7:27 AM CDT) Color, ur [place] Yellow Clarity, ur Cloudy(A) Clear [facility] Specific gravity, ur 1.018 1.003 - 1.030 [facility] pH, urine 6.0 [facility] Comment: Interpretive Data U rine pH is affected by diet, medications, systemic acid-base disturbances, and renal tubular function. pH may affect urinary stone formation. For example, urine pH below 6.0 may help reduce the tendency for calcium phosphate stones and pH greater than 6.0 may reduce the tendency for uric acid stone formation. Source: [facility] Current Interpretive Data was last revised on 2017 Protein, ur ql 2+(A) Negative [facility] Glucose, ur ql Negative Negative [facility] Ketones, ur Negative Negative [facility] Bilirubin, ur Negative Negative [facility] Blood, ur 3+(A) Negative [facility] Urobilinogen, ur <2.0 <2.0 mg/dL [facility] Nitrite, ur Negative Negative [facility] Leukocyte esterase, ur Negative Negative [facility] UA reflex comment Reflex to microscopic UA will be performed. [facility] Urine 07/19/2024 7:27 AM CDT 07/19/2024 7:32 AM CDT Edenilson Saleh MD LAB MICROBIOLOGY - GENERAL ORDERABLES Final Result Performing Organization Address [facility] de Phone Number [facility] Department [place] [address] * (ABNORMAL) Urinalysis, microscopic only (07/19/2024 7:27 AM CDT) WBC, ur 21-50(A) 0 - 5 /HPF RBC, ur >50(A) 0 - 2 /HPF [facility] Bacteria, ur 4+(A) [facility] Culture Reflex Comment Reflex to urine culture will be performed. [facility] Urine 07/19/2024 7:27 AM CDT 07/19/2024 7:32 AM CDT Edenilson Saleh MD LAB URINE ORDERA BLES Final Result Performing Organization Address [facility]/[place] Co de Phone Number [facility] [place] [address] * (ABNORMAL) Urine culture Urine (07/19/2024 7:27 AM CDT) Report Final Report: Greater than or equal to 100,000 colonies/mL of Aerococcus urinae Isolates of Aerococcus urinae are typically susceptible to beta-lactams (including penicillin and cephalosporins), vancomycin, and tetracyclines (including doxycycline), but resistant to trimethoprim-sulf amethoxazole. (.) Organism AEROCOCCUS URINAE [facility] Urine 07/19/2024 7:27 AM CDT 07/19/2024 11:27 AM CDT Narrative [facility] - 07/20/2024 2:55 PM CDT Urine culture reflexed based upon urinalysis results. Testing performed by [facility]biology Laboratory ([phone]) Edenilson Saleh MD LAB MICROBIOLOGY - GENERAL ORDERABLES Final Result [facility] One [facility] [place] [address] * NE CRITICAL CARE ILL/INJURED PATIENT INIT 30-74 MIN [...] LAB BLOOD ORDERA BLES Final Result [facility] One [facility] Department [place] [address] * (ABNORMAL) Differential, auto (07/19/2024 3:49 AM [...] 2017. Imm gran pct 0.5 % [facility] Comment: Interpretive Data Percent cell count reference ranges are not reported, since discordance with absolute values may lead to misinterpretation of CBC data. Current Interpretive Data was last revised on 2017. Lymphocyte pct 23.4 % [facility] Comment: Interpretive Data Percent cell count reference [...] MD LAB BLOOD ORDERA BLES Final Result [facility] [place] [address] * CBC with auto differential (07/19/2024 3:49 AM CDT) WBC 5.59 3.80 - 9.90 K/cumm Hgb 15.2 13.0 - 17.5 g/dL [facility] Hct 44.2 38.9 - 50.3 % [facility] Plt 161 150 - 400 K/cumm [facility] MPV 9.7 9.1 - 12.3 fL [facility] RBC 4.99 4.30 - 5.80 M/cumm [facility] MCV 88.6 81.3 - 96.4 fL [facility] MCH 30.5 27.1 - 33.3 pg [facility] MCHC 34.4 32.3 - 35.7 g/dL [facility] RDW CV 13.2 11.1 - 14.9 % [facility] RDW SD 42.3 35.7 - 48.1 fL [facility] NRBC abs 0.00 0.00 - 0.01 K/cumm [facility] Blood 07/19/2024 3:49 AM CDT 07/19/2024 3:58 AM CDT Edenilson Saleh MD LAB BLOOD ORDERA BLES Final Result [facility] Department [place] [address] * (ABNORMAL) Comprehensive metabolic panel (07/19/2024 3:49 AM CDT) Sodium 139 135 - 145 mmol/L Potassium, pl 4.3 3.3 - 4.9 mmol/L [facility] Chloride 106 97 - 110 mmol/L [facility] CO2 22 22 - 32 mmol/L [facility] Anion gap 11 2 - 15 mmol/L [facility] BUN 29(H) 6 - 25 mg/dL [facility] Creatinine 1.53(H) 0.80 - 1.30 mg/dL [facility] Glucose 114 70 - 199 mg/dL [facility] Comment: Interpretive Data Fasting glucose >/= [...] 2022. Calcium 10.1 8.5 - 10.3 mg/dL [facility] Bilirubin, total 0.5 0.1 - 1.2 mg/dL [facility] Protein, pl 7.7 6.5 - 8.5 g/dL [facility] Albumin 4.3 3.5 - 5.0 g/dL [facility] Alk phos 75 40 - 130 Units/L [facility] ALT 25 7 - 55 Units/L [facility] AST 19 10 - 50 Units/L [facility] Blood 07/19/2024 3:49 AM CDT 07/19/2024 3:57 AM CDT us Edenilson Saleh MD LAB BLOOD ORDERA BLES Final Result [facility] One [facility] [place] [address] from Last 3 Months Insurance [facility] [employer] [place] [employer] Address: [address] [place] [address] [facility] [employer] [place] [employer] Address: [place] [address] [facility] [place] [employer] [place] [employer] Address: [place] [address] Advance Directives For more information, please contact: [phone] * Full Code (Latest Code Status on [...] 8:53 PM 06/15/2020 12:52 AM Care Teams Conservation Policy Analyst Relationship Specialty Start Date [place]son [place]landon [place] [address] [address] PCP - General Family Practice 07/19/24 Dhruv Brito MD [address] [place] [address] [address] [place] [address] Medical Oncologist/Humidifier Operator Medical Oncology 05/28/20
[2024-09-13 20:15] LABS: Bacteria Urine None Seen /hpf; Non Pathogenic Casts 0-2; RBC Urine >100 /hpf (0-2); Squamous Epithelial Cell Urine None Seen /hpf (Few); WBC Urine 0-5 /hpf (0-3)
[2024-09-13 20:20] LABS: Add Urine Microscopic? YES; Appearance Urine Clear (Clear); Bilirubin Urine Negative (Negative); Blood Urine 3+ (Negative); Glucose Urine UA Negative (Negative); Ketones Urine Negative (Negative); Leukocyte Esterase Ur Negative LEU/UL (Negative); Nitrate Urine Negative (Negative); Protein Urine Negative (Negative); Specific Grav Ur 1.006 (1.001-1.035); Urobilinogen Urine 0.2 mg/dL (<2.0)
[2024-09-13 20:21] LABS: Color Urine Light Red (Yellow)
[2024-09-13 21:08] LABS: Basophils Percent Auto 0.4 % (0.2-1.2); Eosinophils Absolute Auto 0.1 K/mm3 (0-0.3); Hematocrit 44.1 % (42.0-52.0); Hemoglobin 15.1 g/dL (14.0-18.0); Immature Granulocyte Absolute 0.06 K/mm3 (0.00-0.031); Immature Granulocyte Percent A 0.6 % (0-0.5); Lymphocytes Absolute Auto 0.78 K/mm3 (0.9-3.2); Lymphocytes Percent Auto 8.2 % (18.3-44.2); Mean Corpuscular HGB Conc 34.2 g/dl (32-36); Mean Corpuscular Hemoglobin 31.3 pg (26-34); Mean Corpuscular Volume 91.3 fl (80-100); Mean Platelet Volume 9.8 fl (7.4-10.4); Monocytes Absolute Auto 0.7 K/mm3 (0.1-0.6); Monocytes Percent Auto 7.1 % (2.6-8.5); Neutrophils Absolute Auto 7.9 K/mm3 (1.3-6.7); Neutrophils Percent Auto 82.7 % (45.5-73.1); Platelet Count Result 174 k/mm3 (150-375); Red Blood Count 4.83 M/mm3 (4.6-6.20); Red Cell Distribution Width 13.3 % (11.5-14.5); White Blood Count 9.6 K/mm3 (4.5-10.0)
--- NOTE | 2024-09-13 21:11 | PC.NURSE ---
Pt taken to CT in stretcher
[2024-09-13 21:20] LABS: Alanine Aminotransferase 24 U/L (6-50); Albumin Level 4.4 g/dL (3.5-5.1); Alkaline Phosphatase 70 U/L (38-126); Anion Gap 10 mmol/L (4-12); Aspartate Amino Transferase 29 U/L (17-59); Bilirubin,Total 0.9 mg/dL (0.2-1.3); Blood Urea Nitrogen 32 mg/dL (9-20); Calcium 9.7 mg/dL (8.4-10.2); Carbon Dioxide 19 mmol/L (22-30); Chloride 107 mmol/L (98-107); Estimated CRCL calculation 60 ml/min; Estimated Glomerular Filt Rate 48; Glucose 119 mg/dL (65-110); Potassium 4.6 mmol/L (3.4-5.0); Sodium 136 mmol/L (137-145); Total Protein 7.8 g/dL (6.3-8.2)
[2024-09-13 21:36] LABS: Prothrombin Time 13.5 Seconds (11.1-14.7)
[2024-09-13 21:57] VITALS: BP 131/61; PULSE 66; RESP 16; O2SAT 95
--- NOTE | 2024-09-14 03:40 | ADMGEN ---
This patient, Alex Kraft, was admitted to 3 [facility] Surg Room 330-02. Patient/family oriented to hospital policies and general routines including ID bracelet, bed and alarms, visiting hours, pain management, procedures, bathroom and other care routines, personal items, smoking policy, room service/diet, and visiting hours. Information on how to activate the Rapid Response Team has been discussed. Patient/Family are encouraged to report perceived risks to care and to ask questions if they do not understand what they are told or what they should do.
[2024-09-14 03:48] VITALS: BP 144/80; PULSE 58; RESP 17; TEMP 35.8; O2SAT 100
--- NOTE | 2024-09-14 06:08 | PC.NURSE ---
Emptied Pt's moctezuma catheter earlier in order to continue to evaluate if Pt. is retaining urine/needing CBI to be continued. Pt. had dark pink tinged/mariah urine noted in moctezuma bag since last emptied. Urine continuing to drain at this time. CBI supplies on stand-by.
--- NOTE | 2024-09-14 07:10 | P.CONUR_ITS ---
Assessment and Plan Assessment and plan (1) Hydroureteronephrosis: Code(s): N13.30 - Unspecified hydronephrosis Status: Acute (2) Hematuria: Qualifiers: Hematuria type: gross Qualified Code(s): R31.0 - Gross hematuria Code(s): R31.9 - Hematuria, unspecified Status: Acute (3) Prostate cancer: Code(s): C61 - Malignant neoplasm of prostate Status: Acute Assessment and Plan: * Complicated history of prostate cancer managed at [facility] * Chronic bilateral hydronephrosis with stable serum creatinine. * To you, painless gross hematuria that has resolved overnight with catheter placement * This morning, I will remove catheter for voiding trial. If he does well he can be discharged with follow-up at [facility] as previously arranged Urology Consult Note HPI Date Seen: 09/14/24 Requesting Physician: Sandra Carpenter DO Primary Care Provider: Abdoulaye Landis DO Consult Narrative Narrative: Pleasant you man with an extensive, complicated urological history - managed, almost exclusively, at [facility]. He was diagnosed prostate cancer at the age of 46 with management as outlined briefly below. He presents to emergency department painless gross hematuria. Information obtained from review of [facility] records on [facility]. 2012: Pelvic radiation for localized prostate cancer 2017: Salvage prostatectomy Recent: Chronic 4-5cm pelvic mass with bilat. hydronephrosis / creat. stable around 1.5 PSA: 0.1 09/11/2024: Cysto: only urethral stricture noted Last night: Presented with transient scant painless gross hematuria. 20F Bosch catheter was placed without difficulty. Hematuria has promptly resolved overnight. Review of Systems 2 Review of Systems: All systems reviewed & are unremarkable except as noted in HPI and below [facility] Past Medical History Medical History Renal insufficiency Baseline creatinine around 1.20. Within the past 1 month, he reports his creatinine to be as high as 2.20. His urologist is believes this may be due to compression of ureters from his prostate cancer. Prostate cancer Diagnosed at the age of 44 initially treated with radiation and hormone therapy. He had a radical prostatectomy 3 years thereafter, and has had several recurrences in and about the bladder which have been resected. Currently on Xtandi. He is followed by a urologist affiliated with [facility], Dr. Dumas Surgical History Surgical History History of cystoscopy With resection of bladder tumor reported to be metastatic prostate cancer. History of prostatectomy Family History Family History Father Family history of cardiovascular disease Social History Social History Social History: The patient is lives with his and their 19-year-old daughter in [place]. He is a former smoker and quit in 2000. No alcohol or illicit substance abuse. He designates his , Yolande, as his surrogate decision maker and he wishes to be a full code. Smoking packs per day: 0.5 Smoking cigarettes per day: 10.0 Years smoked: 15 Smoking pack-years: 7.50 Smoking status: Never smoker Alcohol intake: former Drinks per week: 1 Substance use: never Do You Feel Safe in your Home?: Yes Lack of Transportation: No Lack of Food: Never True Current Housing: I Have Housing Concerned About Future Housing: No Difficulty Paying Gas/Electric Bills: No Difficulty Paying for Meds: No Currently Unemployed: No Education: Associate Degree Difficulty w/ Childcare or Family Care: No Spiritual care concerns: No Meds Home Medications and Allergies Home Medications ?Medication ?Instructions ?Recorded ?Confirmed ?Type enzalutamide 40 mg capsule (Xtandi) 40 mg PO QID 03/29/21 09/14/24 History leuprolide 1 mg/0.2 mL 1 mg subcut [id number] 03/29/21 09/14/24 History subcutaneous solution calcium citrate 250 mg PO DAILY 11/10/22 09/14/24 History iron 18 mg tablet 18 mg PO .qod 11/10/22 09/14/24 History lisinopril 40 mg tablet 40 mg PO DAILY 11/10/22 09/14/24 History amlodipine 10 mg tablet 10 mg PO DAILY 09/14/24 09/14/24 History Allergies Allergy/AdvReac Type Severity Reaction Status Date / Time No Known Allergies Allergy Verified 11/10/22 09:27 Vital Signs Vital Signs - 24 hr 09/13/24 19:02 09/13/24 21:57 09/14/24 03:29 Temperature 97.1 F L Pulse Rate 91 66 Respiratory Rate 20 16 Blood Pressure 159/115 H 131/61 Pulse Oximetry 100 95 Oxygen Delivery Room Air Room Air Room Air 09/14/24 03:48 Temperature 96.5 F L Pulse Rate 58 L Respiratory Rate 17 Blood Pressure 144/80 H Pulse Oximetry 100 Oxygen Delivery Exam 2 Const: General: no acute distress Resp: Effort & Inspection: normal respiratory effort GI: Inspection: non-distended GI Palp: No abdominal tenderness and No Guarding due to palpation present (GI) Auscultation: normal bowel sounds Urinary Catheter: Urinary Catheter: patent and draining and urine clear Results Labs 09/13/24 20:58 09/13/24 20:58 Labs: Short CBC 09/13/24 Range/Units 20:58 WBC 9.6 (4.5-10.0) K/mm3 Hgb 15.1 (14.0-18.0) g/dL Hct 44.1 (42.0-52.0) % Plt Count 174 (150-375) k/mm3 BMP 09/13/24 20:58 Sodium 136 L Potassium 4.6 Chloride 107 Carbon Dioxide 19 L BUN 32 H D Creatinine 1.50 H Glucose 119 H Calcium 9.7 Liver Function 09/13/24 Range/Units 20:58 Total Bilirubin 0.9 (0.2-1.3) mg/dL AST 29 (17-59) U/L ALT 24 (6-50) U/L Alkaline Phosphatase 70 (38-126) U/L Albumin 4.4 (3.5-5.1) g/dL Urine 09/13/24 Range/Units 20:04 Urine Color Light red H (Yellow) Urine Appearance Clear (Clear) Urine pH 6.0 (5.0-9.0) Ur Specific [place] 1.006 (1.001-1.035) Urine Protein Negative (Negative) mg/dL Urine Glucose (UA) Negative (Negative) mg/dL
[2024-09-14 08:37] VITALS: O2SAT 97
[2024-09-14] MEDS: ACETAMINOPHEN 325 MG TABLET 650 MG PO (09:20)
--- NOTE | 2024-09-14 12:03 | P.HP_ITS ---
H&P: HPI History of Present Illness Date/Time: 09/14/24 12:03 Chief Complaint: Hematuria Narrative: 59 y/o M with a hx of prostate cancer status post radiation in 2011 with salvage radical prostatectomy with positive surgical margins in 2016 with local recurrence in 2019, currently on medical management. Also has a history of bladder carcinoma s/p post transurethral resection in September 2019 with known right ureteral obstruction, pathology demonstrated metastatic prostate adenocarcinoma. Pt presented to the ER on 09/13/2024 with hematuria and urinary retention since afternoon. Patient states that 2:30 p.m. he urinated bright red blood and has been unable to urinate since. Patient states he noticed clots when urinated earlier this afternoon. Pt reported suprapubic pain. In the ED is vitals showed hypertension no hypoxia. Bedside bladder scan ER showed 500 cc of urine in his bladder. A 3 way catheter was placed with passes of cross hematuria with clots. CBI was initiated. Patient had immediate improvement in his suprapubic abdominal pain after catheter is placed. Laboratory studies showed WBC of 9.6 hemoglobin of 15.1 platelet of 174. Chem panel showed 136 of sodium potassium 4.6 chloride 107 bicarbonate 19 BUN 32 creatinine 1.5 blood sugar of 119. Urinalysis showed more than [address] abdomen pelvis was performed which showed significant bilateral hydroureteronephrosis extending to the bladder which contained rounded hyperattenuating foci along its base likely blood products/clot. The balloon for the Bosch catheter is distended within the bulbous urethra. The tip of the Bosch catheter extends just into the base of the bladder into the area blood products/clot. Patient was discussed with urologist at [facility] and refused transfer. Patient had a cystoscopy 2 weeks ago which was reported normal Patient is admitted in this setting for further treatment. He is currently having no pain and is planned to have this catheter removed today per Urology. Review of Systems Review of Systems: - CONSTITUTIONAL: Denies weight loss, fe kasey and chills. - HEENT: Denies changes in vision and he aring - RESPIRATORY: Denies SOB and cough. - CV: Denies palpitations and CP. - GI: Reports abdominal pain, denies na usea, vomiting and diarrhea. - : Denies dysuria and urinary frequen cy. Reports inability to urinate. See HPI. - MSK: Denies myalgia and joint pain. - SKIN: Denies rash and pruritus. - NEUROLOGICAL: Denies headache and sync ope. - PSYCHIATRIC: Denies recent changes in mood. Denies anxiety and depression. [facility] Past Medical History Medical History Renal insufficiency Baseline creatinine around 1.20. Within the past 1 month, he reports his creatinine to be as high as 2.20. His urologist is believes this may be due to compression of ureters from his prostate cancer. Prostate cancer Diagnosed at the age of 44 initially treated with radiation and hormone therapy. He had a radical prostatectomy 3 years thereafter, and has had several recurrences in and about the bladder which have been resected. Currently on Xtandi. He is followed by a urologist affiliated with [facility], Dr. Dumas Surgical History Surgical History History of cystoscopy With resection of bladder tumor reported to be metastatic prostate cancer. History of prostatectomy Family History Family History Father Family history of cardiovascular disease Social History Social History Social History: The patient is lives with his and their 19-year-old daughter in [place]. He is a former smoker and quit in 2000. No alcohol or illicit substance abuse. He designates his , Yolande, as his surrogate decision maker and he wishes to be a full code. Smoking packs per day: 0.5 Smoking cigarettes per day: 10.0 Years smoked: 15 Smoking pack-years: 7.50 Smoking status: Never smoker Alcohol intake: former Drinks per week: 1 Substance use: never Do You Feel Safe in your Home?: Yes Lack of Transportation: No Lack of Food: Never True Current Housing: I Have Housing Concerned About Future Housing: No Difficulty Paying Gas/Electric Bills: No Difficulty Paying for Meds: No Currently Unemployed: No Education: Associate Degree Difficulty w/ Childcare or Family Care: No Spiritual care concerns: No Meds Home Medications and Allergies Home Medications ?Medication ?Instructions ?Recorded ?Confirmed ?Type enzalutamide 40 mg capsule (Xtandi) 40 mg PO QID 03/29/21 09/14/24 History leuprolide 1 mg/0.2 mL 1 mg subcut [id number] 03/29/21 09/14/24 History subcutaneous solution calcium citrate 250 mg PO DAILY 11/10/22 09/14/24 History iron 18 mg tablet 18 mg PO .qod 11/10/22 09/14/24 History lisinopril 40 mg tablet 40 mg PO DAILY 11/10/22 09/14/24 History amlodipine 10 mg tablet 10 mg PO DAILY 09/14/24 09/14/24 History Allergies Allergy/AdvReac Type Severity Reaction Status Date / Time No Known Allergies Allergy Verified 11/10/22 09:27 Vital Signs Vital Signs - 24 hr 09/13/24 19:02 09/13/24 21:57 09/14/24 03:29 Temperature 97.1 F L Pulse Rate 91 66 Respiratory Rate 20 16 Blood Pressure 159/115 H 131/61 Pulse Oximetry 100 95 Oxygen Delivery Room Air Room Air Room Air 09/14/24 03:48 09/14/24 08:37 Temperature 96.5 F L Pulse Rate 58 L Respiratory Rate 17 Blood Pressure 144/80 H Pulse Oximetry 100 97 Oxygen Delivery Room Air Exam Narrative: GENERAL: Well-appearing, well-nourished, and in no acute distress. HEAD: Normocephalic, atraumatic. EYES: EOMI. ENT: Nares clear, no rhinorrhea or epistaxis. Mucous membranes moist. NECK: Supple. CHEST: Clear to auscultation. No respiratory distress. HEART: Regular rate and rhythm. No murmur heard. Normal peripheral pulses. ABDOMEN: Soft, nontender, nondistended, normal active bowel sounds. No CVA tenderness. Three way catheter in place actively draining clear urine EXTREMITIES: Normal range of motion. No edema. SKIN: Warm, dry, no rash. NEURO: No focal deficits. Alert and oriented x3 H&P: Results Labs Labs: Short CBC 09/13/24 Range/Units 20:58 WBC 9.6 (4.5-10.0) K/mm3 Hgb 15.1 (14.0-18.0) g/dL Hct 44.1 (42.0-52.0) % Plt Count 174 (150-375) k/mm3 BMP 09/13/24 20:58 Sodium 136 L Potassium 4.6 Chloride 107 Carbon Dioxide 19 L BUN 32 H D Creatinine 1.50 H Glucose 119 H Calcium 9.7 Liver Function 09/13/24 Range/Units 20:58 Total Bilirubin 0.9 (0.2-1.3) mg/dL AST 29 (17-59) U/L ALT 24 (6-50) U/L Alkaline Phosphatase 70 (38-126) U/L Albumin 4.4 (3.5-5.1) g/dL Urine 09/13/24 Range/Units 20:04 Urine Color Light red H (Yellow) Urine Appearance Clear (Clear) Urine pH 6.0 (5.0-9.0) Ur Specific [place] 1.006 (1.001-1.035) Urine Protein Negative (Negative) mg/dL Urine Glucose (UA) Negative (Negative) mg/dL Assessment and Plan Assessment and plan (1) Renal insufficiency: Code(s): N28.9 - Disorder of kidney and ureter, unspecified Status: Acute (2) Hydronephrosis due to obstruction of bladder: Code(s): N13.30 - Unspecified hydronephrosis; N32.0 - Bladder-neck obstruction Status: Acute (3) CKD (chronic kidney disease) stage 3, GFR 30-59 ml/min: Qualifiers: Chronic kidney disease stage 3 subtype: stage 3b (GFR 30-44) Qualified Code(s): N18.32 - Chronic kidney disease, stage 3b Code(s): N18.30 - Chronic kidney disease, stage 3 unspecified Status: Acute (4) Gross hematuria: Code(s): R31.0 - Gross hematuria Status: Acute (5) Urinary retention: Code(s): R33.9 - Retention of urine, unspecified Status: Acute (6) Prostate cancer: Code(s): C61 - Malignant neoplasm of prostate Status: Acute (7) ZORAN (obstructive sleep apnea): Code(s): G47.33 - Obstructive sleep apnea (adult) (pediatric) Status: Acute Plan 59 y/o M with a hx of prostate cancer status post radiation in 2011 with salvage radical prostatectomy with positive surgical margins in 2016 with local recurrence in 2019, currently on medical management. Also has a history of bladder carcinoma s/p post transurethral resection in September 2019 with known right ureteral obstruction, pathology demonstrated metastatic prostate adenocarcinoma. Pt presented to the ER on 09/13/2024 with hematuria and urinary retention since afternoon. Patient states that 2:30 p.m. he urinated bright red blood and has been unable to urinate since. Patient states he noticed clots when urinated earlier this afternoon. Pt reported suprapubic pain. In the ED is vitals showed hypertension no hypoxia. Bedside bladder scan ER showed 500 cc of urine in his bladder. A 3 way catheter was placed with passes of cross hematuria with clots. CBI was initiated. Patient had immediate improvement in his suprapubic abdominal pain after catheter is placed. Laboratory studies showed WBC of 9.6 hemoglobin of 15.1 platelet of 174. Chem panel showed 136 of sodium potassium 4.6 chloride 107 bicarbonate 19 BUN 32 creatinine 1.5 blood sugar of 119. Urinalysis showed more than [address] abdomen pelvis was performed which showed significant bilateral hydroureteronephrosis extending to the bladder which contained rounded hyperattenuating foci along its base likely blood products/clot. The balloon for the Bosch catheter is distended within the bulbous urethra. The tip of the Bosch catheter extends just into the base of the bladder into the area blood products/clot. Patient was discussed with urologist at [facility] and refused transfer. Patient had a cystoscopy 2 weeks ago which was reported normal Patient is admitted in this setting for further treatment. Acute urinary retention Gross hematuria with clots Bilateral hydroureteronephrosis which is chronic History of prostate cancer status post radiation treatment prostatectomy CKD stage 3 creatinine stable at 1.5. DVT prophylaxis SCDs Code status full code Hospitalist MIPS Advance Care Plan I have confirmed that the patient's Advanced Care Plan is present, code status is documented, or surrogate decision maker is listed in patient medical record.: Yes Medication Reconciliation I have utilized all available resources to obtain, update and review the patients current medications (includes all prescriptions, OTC, herbals, cannabis, and nutritional supplements).: Yes
[2024-09-14 13:50] VITALS: BP 154/82; PULSE 62; RESP 18; TEMP 35.7; O2SAT 98
--- NOTE | 2024-09-14 16:54 | P.DS_ITS ---
DS: Admitting Diagnosis Discharge Date 09/14/2024 Admitting Diagnosis Hematuria DS: Discharge Diagnosis Discharge Diagnosis (1) Renal insufficiency: Code(s): N28.9 - Disorder of kidney and ureter, unspecified Status: Acute (2) Hydronephrosis due to obstruction of bladder: Code(s): N13.30 - Unspecified hydronephrosis; N32.0 - Bladder-neck obstruction Status: Acute (3) CKD (chronic kidney disease) stage 3, GFR 30-59 ml/min: Qualifiers: Chronic kidney disease stage 3 subtype: stage 3b (GFR 30-44) Qualified Code(s): N18.32 - Chronic kidney disease, stage 3b Code(s): N18.30 - Chronic kidney disease, stage 3 unspecified Status: Acute (4) Gross hematuria: Code(s): R31.0 - Gross hematuria Status: Acute (5) Urinary retention: Code(s): R33.9 - Retention of urine, unspecified Status: Acute (6) Prostate cancer: Code(s): C61 - Malignant neoplasm of prostate Status: Acute (7) ZORAN (obstructive sleep apnea): Code(s): G47.33 - Obstructive sleep apnea (adult) (pediatric) Status: Acute DS: Summary Hospital Course Hospital Course: 59 y/o M with a hx of prostate cancer status post radiation in 2011 with salvage radical prostatectomy with positive surgical margins in 2016 with local recurrence in 2019, currently on medical management. Also has a history of bladder carcinoma s/p post transurethral resection in September 2019 with known right ureteral obstruction, pathology demonstrated metastatic prostate adenocarcinoma. Pt presented to the ER on 09/13/2024 with hematuria and urinary retention since afternoon. Patient states that 2:30 p.m. he urinated bright red blood and has been unable to urinate since. Patient states he noticed clots when urinated earlier this afternoon. Pt reported suprapubic pain. In the ED is vitals showed hypertension no hypoxia. Bedside bladder scan ER showed 500 cc of urine in his bladder. A 3 way catheter was placed with passes of cross hematuria with clots. CBI was initiated. Patient had immediate improvement in his suprapubic abdominal pain after catheter is placed. Laboratory studies showed WBC of 9.6 hemoglobin of 15.1 platelet of 174. Chem panel showed 136 of sodium potassium 4.6 chloride 107 bicarbonate 19 BUN 32 creatinine 1.5 blood sugar of 119. Urinalysis showed more than [address] abdomen pelvis was performed which showed significant bilateral hydroureteronephrosis extending to the bladder which contained rounded hyperattenuating foci along its base likely blood products/clot. The balloon for the Bosch catheter is distended within the bulbous urethra. The tip of the Bosch catheter extends just into the base of the bladder into the area blood products/clot. Patient was discussed with urologist at [facility] and refused transfer. Patient had a cystoscopy 2 weeks ago which was reported normal Patient is admitted in this setting for further treatment. Acute urinary retention needing Bosch catheter placement. Likely due to clogging due to hematuria. CBI was provided with resolution of hematuria. Bosch catheter was removed following urology consultation and able to void without any hematuria. Okay per Urology to discharge and follow up as an outpatient basis. Gross hematuria with clots Bilateral hydroureteronephrosis which is chronic History of prostate cancer status post radiation treatment prostatectomy CKD stage 3 creatinine stable at 1.5. DVT prophylaxis SCDs Code status full code Time Spent with Patient Time attestation: Total time spent providing and/or coordinating discharge services: 35 minutes Exam Narrative: GENERAL: Well-appearing, well-nourished, and in no acute distress. HEAD: Normocephalic, atraumatic. EYES: EOMI. ENT: Nares clear, no rhinorrhea or epistaxis. Mucous membranes moist. NECK: Supple. CHEST: Clear to auscultation. No respiratory distress. HEART: Regular rate and rhythm. No murmur heard. Normal peripheral pulses. ABDOMEN: Soft, nontender, nondistended, normal active bowel sounds. No CVA tenderness. Three way catheter in place actively draining clear urine EXTREMITIES: Normal range of motion. No edema. SKIN: Warm, dry, no rash. NEURO: No focal deficits. Alert and oriented x3 DS: Data Data Completed and Pending Labs on day of discharge: Labs from last 24 hours 09/13/24 09/13/24 20:58 20:04 WBC 9.6 RBC 4.83 Hgb 15.1 Hct 44.1 MCV 91.3 MCH 31.3 MCHC 34.2 RDW 13.3 Plt Count 174 MPV 9.8 Immature Gran % (Auto) 0.6 H Neut % (Auto) 82.7 H Lymph % (Auto) 8.2 L Swain % (Auto) 7.1 Eos % (Auto) 1.0 Baso % (Auto) 0.4 Lymph # (Auto) 0.78 L Swain # (Auto) 0.7 H Eos # (Auto) 0.1 Baso # (Auto) 0.0 Abs Immat Gran (auto) 0.06 H Absolute Neuts (auto) 7.9 H Absolute Nucleated RBC 0.000 Nucleated RBC % 0.0 PT 13.5 INR 1.0 APTT 26.0 Sodium 136 L Potassium 4.6 Chloride 107 Carbon Dioxide 19 L Anion Gap 10 BUN 32 H D Creatinine 1.50 H Estim Creat Clear Calc 60 Estimated GFR 48 L Glucose 119 H Calcium 9.7 Total Bilirubin 0.9 AST 29 ALT 24 Alkaline Phosphatase 70 Total Protein 7.8 Albumin 4.4 Urine Color Light red H Urine Appearance Clear Urine pH 6.0 Ur Specific [place] 1.006 Urine Protein Negative Urine Glucose (UA) Negative Urine Ketones Negative Ur Blood (Man) 3+ H Urine Nitrate Negative Urine Bilirubin Negative Urine Urobilinogen 0.2 Leukocyte Esterase Rfl Negative Urine RBC >100 H Urine WBC 0-5 Ur Squamous Epith Cells None seen Urine Bacteria None seen Urine Casts 0-2 Imaging Radiologist's impression: ITS Impressions Abdomen/Pelvis CT 09/13/24 21:16 IMPRESSION: Significant bilateral hydroureteronephrosis extending to the bladder which contains rounded hyper attenuating foci along its base, likely blood products/clot. The balloon for the Bosch catheter is distended within the bulbous urethra. The tip of the Bosch catheter extends just into the base of the bladder into the area of blood products/clot . Discharge Plan Discharge Attending physician on discharge: Ten Suarez Consulting providers: Rufino Lubin Discharging Clinician: Ten Suarez Anticipated Discharge Date/Time: 09/14/24 16:55 Patient Disposition: Home Activity: as tolerated Diet: heart healthy Patient Instructions: Antibiotic Form Patient Language: Macedonian Stand Alone Forms: General Discharge Information Follow-up/Referrals: Abdoulaye Landis DO [Primary Care Provider] - 1 Week Discharge Medications: Continued Xtandi 40 mg capsule 40 mg PO QID leuprolide [Lupron] 1 mg/0.2 mL Solution 1 mg SUBCUT [id number] lisinopril 40 mg tablet 40 mg PO DAILY calcium citrate 250 mg calcium tablet 250 mg PO DAILY iron 18 mg tablet 18 mg PO .qod amlodipine 10 mg tablet 10 mg PO DAILY Date of admission: 09/14/24 00:07 Primary Care Provider: Abdoulaye Landis Admitting Provider: Sandra Carpenter Attending physician on admission: Sandra Carpenter Condition: Stable
== END 2024-09-14 17:50 | disposition home or self-care (01) ==
LOC: ANHED 09-14 00:07 → ANH3MEDSUR 09-14 01:37
PROVIDERS: Admitting Provider Internal Medicine; Emergency Provider Physician Assistant; PCP Internal Medicine; Visit Provider Internal Medicine
DX: C61 Malignant neoplasm of prostate (principal); R31.0 Gross hematuria; N13.30 Unspecified hydronephrosis; R33.8 Other retention of urine; C79.11 Secondary malignant neoplasm of bladder; N28.9 Disorder of kidney and ureter, unspecified; N32.0 Bladder-neck obstruction; N18.32 Chronic kidney disease, stage 3b; G47.33 Obstructive sleep apnea (adult) (pediatric); Z79.899 Other long term (current) drug therapy; Z90.79 Acquired absence of other genital organ(s); Z87.891 Personal history of nicotine dependence; Z92.3 Personal history of irradiation
CPT/HCPCS: 36415; 74176; 80053; 81001; 85025; 85610; 85730; 99285; A9270; G0378